=== PATIENT | female | born 1960 | race African-American/Black ===

== ENCOUNTER 2017-06-06 07:05 | Emergency (ER) | payer OTHER ==
[2017-06-06 07:15] VITALS: TEMP 98; BMI 34.7
--- NOTE | 2017-06-06 07:46 | PDOC ---
History of Present Illness - General Chief Complaint: Pain, Acute Stated Complaint: ABDOMINAL PAIN Time Seen by Provider: 06/06/17 07:44 History Source: Patient Exam Limitations: No Limitations - History of Present Illness Initial Comments: CHIEF COMPLAINT: 56 y/o afebrile female with PMH DM, CAD (prior CABG), HTN, HLD , CKD (HD //) c/o right side and back pain for the past 6 hours. HISTORY OF PRESENT ILLNESS: The patient states she developed right side and back pain that woke her up from sleep about 6 hours ago. She states the pain is constant. She also admits to nausea with 1 episode of vomiting. She denies f/c, BERGER, dizziness, CP, SOB, hematuria, dysuria. The patient does make some of her own urine and was scheduled for dialysis today but was refused because of her symptoms. She has not taken anything for pain. PCP is Dr. Glass Life Specialist is Dr. Rogers Safety Physician is Dr. Sheppard Vital signs on arrival are notable for BP 176/79. REVIEW OF SYSTEMS: GENERAL/CONSTITUTIONAL: No fever/chills. No weakness. No weight change. HEAD, EYES, EARS, NOSE AND THROAT: No change in vision. No ear pain or discharge. No sore throat. CARDIOVASCULAR: No chest pain or shortness of breath. RESPIRATORY: No cough, wheezing, or hemoptysis. GASTROINTESTINAL: +nausea, vomiting. No diarrhea or constipation. GENITOURINARY: No dysuria, frequency, or change in urination. MUSCULOSKELETAL: +right side pain and right back pain. No joint or muscle swelling or pain. No neck pain. SKIN: No rash or easy bruising. NEUROLOGIC: No headache, vertigo, loss of consciousness, or loss of sensation. PHYSICAL EXAM: GENERAL: The patient is awake, alert, and fully oriented, in moderate discomfort. HEAD: Normal with no signs of trauma. ENT: Mucous membranes moist. Pupils equal, round and reactive to light, extraocular movements intact, sclera anicteric, conjunctiva clear. Neck supple. LUNGS: Clear to auscultation bilaterally. Normal excursion. No respiratory distress or use of accessory muscles. CV: RRR, S1/S2, no MRG. Cap refill < 2 sec. ABDOMEN: Soft, obese, with TTP of middle right abdomen and right flank. Negative Harris's sign. No RLQ TTP. No rebound, guarding or rigidity. BACK: +right CVA TTP. EXTREMITIES: Normal range of motion, no edema. NEUROLOGICAL: Normal speech, normal gait. CN II-XII grossly intact. PSYCH: Normal mood, normal affect. SKIN: Warm, dry, normal turgor, no rashes or lesions noted. Past History - Past Medical History Allergies/Adverse Reactions: Allergies Allergy/AdvReac Type Severity Reaction Status Date / Time theophylline Allergy Severe THROAT Verified 06/06/17 07:12 SWELLING BEE'S Allergy THROAT Uncoded 06/06/17 07:12 SWELLING TROPICAL FRUITS Allergy THROAT Uncoded 06/06/17 07:12 SWELLING Home Medications: Ambulatory Orders Insulin Lispro [Humalog] 80 unit SQ DAILY 11/29/14 Sevelamer Carbonate [Renvela -] 800 mg PO TID 11/29/14 Amlodipine Besylate [Norvasc -] 10 mg PO DAILY tablet 12/03/14 Hydralazine HCl [Apresoline -] 50 mg PO TID tablet 12/03/14 Aspirin [ASA -] 1 tab PO DAILY 02/20/15 Omeprazole [Prilosec] 40 mg PO DAILY #0 capsule.dr 07/23/15 Polyethylene Glycol 3350 [Miralax (For Bowel Prep) -] 17 gm PO DAILY #1 bottle 07/23/15 Anemia: No Asthma: Yes Cancer: No Cardiac Disorders: Yes ("VALVE REPAIRED AND NARROW ARTERIES") CVA: No COPD: No CHF: Yes (2010) Dementia: No Diabetes: Yes Dialysis: Yes (,th,sat lt arm fistula) GI Disorders: No Disorders: No HTN: Yes Hypercholesterolemia: Yes Liver Disease: No Seizures: No Thyroid Disease: No - Surgical History Abdominal Surgery: Yes (tubal ligation) Appendectomy: No Cardiac Surgery: Yes (CABG 3 VESSELS 2010) Cholecystectomy: No Lung Surgery: No Neurologic Surgery: No Orthopedic Surgery: Yes (L KNEE ARTHROSCOPY) - Family Disease History Family Disease History: Diabetes: Mother, Heart Disease: Father - Suicide/Smoking/Psychosocial Hx Smoking History: Never smoked Have you smoked in the past 12 months: No If you are a former smoker, when did you quit?: 1995 Information on smoking cessation initiated: No Hx Alcohol Use: Yes (RARELY) Drug/Substance Use Hx: No Substance Use Type: None Hx Substance Use Treatment: No *Physical Exam - Vital Signs Last Vital Signs Temp Pulse Resp BP Pulse Ox 98.0 F 60 18 176/79 98 06/06/17 07:12 06/06/17 07:12 06/06/17 07:12 06/06/17 07:12 06/06/17 07:12 Heart Score/ECG Review - History History: Slightly suspicious - Electrocardiogram EKG: Non specific repolarization disturbance - Age Age: 45-65 - Risk Factors Risk Factors Heart Score: Yes Hx Hypercholesterolemia, Yes Hx Hypertension, Yes Hx Diabetes, Yes Hx Obesity Based on the list above the patient has:: >/=3 risk factors or Hx atherosclerotic disease - Troponin Troponin: </= normal limit - Score Heart Score - Total: 4 - ECG Intrepretation Comment:: Twelve-lead EKG was performed and reviewed by Dr. De Leon. There is sinus bradycardia. Cannot rule out anterior infarct, age undetermined. ST & T wave abnormality, consider lateral ischemia. Impression: Abnormal EKG ED Treatment Course - LABORATORY CBC & Chemistry Diagram: 06/06/17 08:51 06/06/17 09:15 Medical Decision Making - Medical Decision Making A/P: 56 y/o afebrile female with signs and symptoms of renal colic vs kidney stone. Plan is as follows: 1. EKG 2. Labs 3. UA/culture 4. IV morphine 5. IV zofran 6. Spiral CT Spiral CT IMPRESSION: Minimal atelectatic changes in the left lung base without gross evidence of focal infiltrates. Minimal right pleural effusion. Partially exophytic right renal lower pole cyst measuring 5 x 4 cm. Some moderate stranding of the right perinephric fat and minimal prominence of the right renal pelvis without gross dilatation of the right ureter or definite evidence of an obstructing stone. Partially distended urinary bladder without gross intraluminal stones or wall thickening. Patient states pain has improved but still present. Spoke with Dr. Glass and he suggests that if everything is normal she should be discharged. Will call Dr. Rogers and Dr. Sheppard. Spoke with Dr. Mullins, combination machine tender for Dr. Sheppard. He states her prior EKG 1 week ago was similar to the one taken today in the ER. He suggests a 2nd tropnin and discharge to dialysis. Still waiting for call back from her supervisor graphite. Pt states she feels much better. Spoke with Dr. Rogers. He suggests discharge and states if she gets to dialysis center by 3pm she will be dialized. Will discharge to home. Instructed the patient to return to the ER with any worsening or concerning symptoms. The patient verbalizes understanding of all instructions, has no further questions and is awaiting discharge. *DC/Admit/Observation/Transfer Diagnosis at time of Disposition: Renal colic on right side - Discharge Dispostion Disposition: HOME Condition at time of disposition: Improved - Referrals Referrals: Prema Glass MD [Primary Care Provider] - Jono Sheppard MD [Staff Physician] - - Patient Instructions Printed Discharge Instructions: Kidney Stones -- Adult Additional Instructions: Discharge INstructions: -Return to the ER with any worsening or concerning symptoms -Please follow up with Dr. Glass, Dr. Sheppard and Dr. Rogers as soon as possible. - Post Discharge Activity
[2017-06-06] MEDS ORDERED: morphine CARPU-JECT 4 MG/1 ML DISP.SYRIN IVPUSH ONE (08:04)
[2017-06-06] MEDS ORDERED: ONDANSETRON 4 MG/2 ML VIAL IVPUSH ONE (08:05)
[2017-06-06] MEDS ORDERED: morphine CARPU-JECT 10 MG/1 ML DISP.SYRIN ONE (08:56)
[2017-06-06 09:26] LABS: BASO % 1.2 % (0-2.0); EOS % 1.7 % (0-4.5); HEMATOCRIT 35.9 % (32.4-45.2); HEMOGLOBIN 11.7 GM/dL (10.7-15.3); LYMPH % 14.8 % (8-40); MCH 32.2 pg (25.7-33.7); MCHC 32.4 g/dl (32.0-36.0); MEAN CELL VOLUME 99.2 fl (80-96); MEAN PLT VOLUME 9.4 fl (7.5-11.1); MONO % 5.4 % (3.8-10.2); NEUT % 76.9 % (42.8-82.8); PLATELET COUNT 207 K/MM3 (134-434); RBC 3.62 M/mm3 (3.60-5.2); WHITE BLOOD COUNT 5.5 K/mm3 (4.0-10.0)
[2017-06-06 11:34] LABS: ALBUMIN 3.6 g/dl (3.4-5.0); ANION GAP 15 (8-16); BILIRUBIN,TOTAL 0.5 mg/dL (0.2-1.0); BLOOD UREA NITROGEN 83 mg/dL (7-18); CALCIUM 8.8 mg/dL (8.5-10.1); CHLORIDE 97 mmol/L (98-107); CO2 23 mmol/L (21-32); GLUCOSE,RANDOM 171 mg/dL (74-106); POTASSIUM 5.1 mmol/L (3.5-5.1); SGOT/AST 12 U/L (15-37); SGPT/ALT 15 U/L (12-78); SODIUM 135 mmol/L (136-145); TOT PROT 6.9 g/dl (6.4-8.2)
[2017-06-06 11:43] LABS: ALK PHOS 67 U/L (45-117)
[2017-06-06 11:46] LABS: CREATININE 9.2 mg/dL (0.55-1.02)
[2017-06-06 14:24] LABS: URINE APPEARANCE CLEAR; URINE BILIRUBIN NEGATIVE (NEGATIVE); URINE BLOOD 3+ (NEGATIVE); URINE COLOR LTYELLOW; URINE GLUCOSE (UA) 1+ (NEGATIVE); URINE KETONE NEGATIVE (NEGATIVE); URINE LEUK ESTERASE TRACE (NEGATIVE); URINE NITRITE NEGATIVE (NEGATIVE); URINE UROBILINOGEN NEGATIVE mg/dL (0.2-1.0)
[2017-06-06 14:32] VITALS: BP 122/68; PULSE 66
[2017-06-06 14:50] LABS: URINE PROTEIN 2+ (NEGATIVE)
[2017-06-06 15:42] LABS: EPI CELLS RARE /HPF (FEW); URINE BACTERIA RARE /hpf (NONE SEEN)
--- NOTE | 2017-06-07 09:33 | EKG ---
Test Reason : Blood Pressure : / mmHG Vent. Rate : 050 BPM Atrial Rate : 050 BPM P-R Int : 178 ms QRS Dur : 092 ms QT Int : 486 ms P-R-T Axes : 058 -19 025 degrees QTc Int : 443 ms SINUS BRADYCARDIA NONSPECIFIC T WAVE ABNORMALITY ABNORMAL ECG Confirmed by MD Luz Maria, Sushil ([id number]) on 06/07/2017 9:33:09 AM Referred By: Confirmed By:Sushil Loera MD
== END 2017-06-06 14:32 | disposition home or self-care (01) ==
LOC: JER 07:05
PROC: 3E033GC Introduction of Other Therapeutic Substance into Peripheral Vein, Percutaneous Approach (ICD-10-PCS; principal; 2017-06-06)
PROC: 3E033NZ Introduction of Analgesics, Hypnotics, Sedatives into Peripheral Vein, Percutaneous Approach (ICD-10-PCS; 2017-06-06)
DX: N23 Unspecified renal colic (principal); I25.10 Atherosclerotic heart disease of native coronary artery without angina pectoris; I13.11 Hypertensive heart and chronic kidney disease without heart failure, with stage 5 chronic kidney disease, or end stage renal disease; N18.6 End stage renal disease; Z99.2 Dependence on renal dialysis; Z95.1 Presence of aortocoronary bypass graft; E10.9 Type 1 diabetes mellitus without complications; Z79.4 Long term (current) use of insulin
CPT/HCPCS: 36415; 74176; 80053; 81003; 81015; 82550; 82553; 83690; 84439; 84443; 84481; 84484; 85025; 93005; 93010; 96374; 96375; 99284-25

== ENCOUNTER 2017-09-12 06:15 | Inpatient (IN) | payer OTHER ==
[2017-09-12 06:55] VITALS: BMI 34.4
[2017-09-12] MEDS ORDERED: ONDANSETRON 4 MG/2 ML VIAL IVPUSH ONE (07:47)
[2017-09-12] MEDS ORDERED: morphine CARPU-JECT 4 MG/1 ML DISP.SYRIN IVPUSH ONE ×2 (07:47→12:05)
[2017-09-12] MEDS ORDERED: morphine SULFATE 4 MG/ML VIAL ONE ×2 (08:23→12:06)
[2017-09-12] MEDS ORDERED: ONDANSETRON 4 MG/2 ML VIAL ONE (08:23)
--- NOTE | 2017-09-12 08:32 | PDOC ---
History of Present Illness - General History Source: Patient Exam Limitations: No Limitations - History of Present Illness Initial Comments: 09/12/17 08:41 The patient is a 56-year-old female, with a significant past medical history of asthma, CAD, CHF, diabetes, HTN, hyperlipidemia, and end stage renal disease ( dialysis on ., ., Sat.), who presents to the ED with right-sided flank pain that began at 2 AM. She describes the pain as 10/10 in severity with radiation to the right upper quadrant and to the groin. She reports having a history of kidney stones, but the pain she is experiencing now is much more severe. She also endorses pleuritic chest pain on inspiration; denies having a chest pain at rest. An hour prior to presentation, the patient experienced an episode of nausea and vomiting; no blood seen in the emesis. The patient is able to make urine. The patient denies any fever, chills, diarrhea, constipation, or abdominal pain. Denies any urinary symptoms. Denies any shortness of breath or chest pain. Allergies: theophylline, bees, tropical fruits Surgical History: CABG PCP: Dr. Glass <Magy Acosta - Last Filed: 09/12/17 11:39> <Nakul De Leon - Last Filed: 09/12/17 12:35> - General Chief Complaint: Pain Stated Complaint: ABD/BACK PAIN Time Seen by Provider: 09/12/17 07:20 Past History <Magy Acosta - Last Filed: 09/12/17 11:39> - Past Medical History Anemia: No Asthma: Yes Cancer: No Cardiac Disorders: Yes ("VALVE REPAIRED AND NARROW ARTERIES") CVA: No COPD: No CHF: Yes (2010) Dementia: No Diabetes: Yes Dialysis: Yes (,,sat lt arm fistula) GI Disorders: No Disorders: No HTN: Yes Hypercholesterolemia: Yes Liver Disease: No Seizures: No Thyroid Disease: No - Surgical History Abdominal Surgery: Yes (tubal ligation) Appendectomy: No Cardiac Surgery: Yes (CABG 3 VESSELS 2010) Cholecystectomy: No Lung Surgery: No Neurologic Surgery: No Orthopedic Surgery: Yes (L KNEE ARTHROSCOPY) - Family Disease History Family Disease History: Diabetes: Mother, Heart Disease: Father - Suicide/Smoking/Psychosocial Hx Smoking History: Never smoked Have you smoked in the past 12 months: No If you are a former smoker, when did you quit?: 1995 Information on smoking cessation initiated: No Hx Alcohol Use: No Drug/Substance Use Hx: No Substance Use Type: None Hx Substance Use Treatment: No <Nakul De Leon - Last Filed: 09/12/17 12:35> - Past Medical History Allergies/Adverse Reactions: Allergies Allergy/AdvReac Type Severity Reaction Status Date / Time theophylline Allergy Severe THROAT Verified 09/12/17 06:55 SWELLING BEE'S Allergy THROAT Uncoded 09/12/17 06:55 SWELLING TROPICAL FRUITS Allergy THROAT Uncoded 09/12/17 06:55 SWELLING Home Medications: Ambulatory Orders Sevelamer Carbonate [Renvela -] 800 mg PO TID 11/29/14 Amlodipine Besylate [Norvasc -] 10 mg PO DAILY tablet 12/03/14 Aspirin [Aspirin EC] 81 mg PO DAILY 09/12/17 Furosemide [Lasix] 80 mg PO BID 09/12/17 Labetalol HCl [Normodyne -] 300 mg PO BID 09/12/17 hydrALAZINE HCL [Apresoline -] 50 mg PO BID 09/12/17 Review of Systems - Review of Systems Able to Perform ROS?: Yes <Magy Acosta - Last Filed: 09/12/17 11:39> - Review of Systems Constitutional: No: Chills, Fever Respiratory: No: Cough, Shortness of Breath Cardiac (ROS): No: Edema ABD/GI: Yes: Nausea. No: Vomiting : Yes: Flank Pain. No: Dysuria, Frequency All Other Systems: Reviewed and Negative <Nakul De Leon - Last Filed: 09/12/17 12:35> *Physical Exam - Vital Signs Last Vital Signs Temp Pulse Resp BP Pulse Ox 97.4 F L 63 18 155/79 98 09/12/17 06:52 09/12/17 06:52 09/12/17 06:52 09/12/17 06:52 09/12/17 06:52 - Physical Exam Comments: 09/12/17 08:42 GENERAL: The patient is awake, alert, and fully oriented, in no acute distress. HEAD: Normal with no signs of trauma. EYES: Pupils equal, round and reactive to light, extraocular movements intact, sclera anicteric, conjunctiva clear with no pallor. ENT: Ears normal, nares patent, oropharynx clear without exudates. Moist mucous membranes. NECK: Normal range of motion, supple without lymphadenopathy, JVD, or masses. LUNGS: Breath sounds equal, clear to auscultation bilaterally. No wheeze/ crackles. HEART: Regular rate and rhythm, normal S1 and S2 without murmur or rub. ABDOMEN: (+)Right-sided abdominal tenderness to palpation, Right upper quadrant tenderness to palpation. Soft/nondistended. BS wnl. No guarding or rebound. No palpable masses. No hepatosplenomegaly. MUSCULOSKELETAL: (+)Right CVA tenderness to palpation. EXTREMITIES: (+)Left arm fistula with palpable thrill. Normal range of motion, no edema. No clubbing or cyanosis. No cords, erythema, or tenderness. NEUROLOGICAL: Cranial nerves II through XII grossly intact. Normal speech, normal gait. PSYCH: Normal mood, normal affect. SKIN: Warm, Dry, normal turgor, no rashes or lesions noted. <Magy Acosta - Last Filed: 09/12/17 11:39> - Vital Signs Last Vital Signs Temp Pulse Resp BP Pulse Ox 97.4 F L 63 18 155/79 98 09/12/17 06:52 09/12/17 06:52 09/12/17 06:52 09/12/17 06:52 09/12/17 06:52 <Nakul De Leon - Last Filed: 09/12/17 12:35> ED Treatment Course - LABORATORY CBC & Chemistry Diagram: 09/12/17 08:15 09/12/17 08:15 - RADIOLOGY Radiology Studies Ordered: 09/12/17 11:37 Chest X-Ray was reviewed by Dr. De Leon and over-read by Radiology. Impression: No acute pathology. No significant change since 02/20/2015. 09/12/17 11:39 Abdomen/Pelvis CT was reviewed by Dr. De Leon and over-read by Radiology. Impression: The lung bases are clear. There is a mild degree of right-sided hydronephrosis with dilatation of the proximal right ureter. The distal ureter is not dilated. The etiology for this mild hydronephrosis is uncertain and a follow-up contrast-enhanced study or retrograde urographic study may be warranted. Since a prior study of 06/06/2017, the mild right-sided hydronephrosis has developed. There is a 4.8 cm lower pole right renal cyst. There is no evidence of calcifications within the kidneys, ureters or urinary bladder suspicious for urinary tract calculi. There is no evidence of left-sided hydronephrosis or obstructive uropathy. No significant abnormalities of the liver, spleen, pancreas, or adrenal glands are identified. There are a few hepatic calcifications suspicious for prior granulomatous disease. The gallbladder is clear. There is a ventral hernia within the upper midline. A small portion of the left lobe of the liver is contained within the hernia sac. A tiny ventral hernia seen just above the umbilicus. This contains a soft tissue nodule measuring 2.4 cm. A fat-containing umbilical hernia is also present. There is no evidence of intra-abdominal, retroperitoneal or pelvic mass lesions , fluid collections or lymphadenopathy. IMPRESSION: 1. Mild right-sided hydronephrosis and proximal hydroureter. The etiology for this finding is uncertain. Clinical correlation and follow-up recommended. 2. Multiple ventral hernias. Please see above discussion. - Medications Given in the ED: ED Medications Discontinued Medications Generic Name Dose Route Start Last Admin Trade Name Freq PRN Reason Stop Dose Admin Morphine Sulfate 4 mg 09/12/17 07:47 09/12/17 08:32 Morphine Injection - IVPUSH 09/12/17 07:48 4 mg ONCE ONE Administration Ondansetron HCl 4 mg 09/12/17 07:47 09/12/17 08:32 Zofran Injection IVPUSH 09/12/17 07:48 4 mg ONCE ONE Administration <Magy Acosta - Last Filed: 09/12/17 11:39> - LABORATORY CBC & Chemistry Diagram: 09/12/17 08:15 09/12/17 08:15 - RADIOLOGY Radiology Studies Ordered: Category Date Time Status ABDOMEN & PELVIS CT W/O CONTR [CT] Stat CT Scan 09/12/17 07:50 Ordered CHEST X-RAY PORTABLE* [RAD] Stat Radiology 09/12/17 07:54 Ordered <Nakul De Leon - Last Filed: 09/12/17 12:35> Medical Decision Making - Medical Decision Making 09/12/17 08:37 A portion of this note was documented by scribe services under my direction. I have reviewed the details of the note, within reason, and agree with the documentation with the following case summary and management plan written by me. 56-year-old female end-stage renal disease on Monday//Monday dialysis , produces some urine and has history of kidney stones presents with acute onset of right flank pain that awoke her from sleep at 2 AM, 10 out of 10 since onset associated with some nausea. Patient had 1 episode of loose nonbloody stool yesterday, had otherwise normal urination yesterday. Has not had urine output during this pain. States pain is similar to past kidney stone but more severe, no falls, some pleuritic discomfort but no actual chest pain or cough or shortness of breath. No fevers or chills. Vital signs as noted and within normal limits Heart is regular bradycardia, lungs are clear Right flank tenderness to palpation radiates down to the right lateral abdomen, slight right upper quadrant discomfort. Abdomen is otherwise soft and nondistended No edema 56-year-old female with acute onset of right flank pain this morning with some nausea. Presentation seems most consistent with intra-abdominal pathology, question renal colic versus biliary colic. Given the pleuritic discomfort and flank pain, PE is on the differential but low given the focal abdominal exam. Rule out UTI/pyelonephritis. Missed dialysis today. Pain control, nausea control Labs, urinalysis ekg, cxr CT of the abdomen and pelvis Reassess 09/12/17 11:29 labs wnl, baseline Cr, no leukocytosis, trop negative. UA and CTAP pending 09/12/17 11:43 CT shows proximal right hydroureter nephrosis without obstructing stone, no clear etiology. Question stricture versus stone not visible on imaging, patient still in significant discomfort requiring more IV opiates. Will discuss disposition with Dr. Glass, her primary physician. 09/12/17 12:33 seen in ED with Dr. Glass, accepts patient for inpt med/surg. She discussed case with Dr. Rogers/Gorge and will arrange HD today. Pt's daughter confirmed [email or web address] as her , so he was consulted also. <Nakul De Leon - Last Filed: 09/12/17 12:35> *DC/Admit/Observation/Transfer - Attestations Scribe Attestion: 09/12/17 08:50 Documentation prepared by Magy Acosta, acting as medical reception for Nakul De Leon MD. <Magy Acosta - Last Filed: 09/12/17 11:39> - Discharge Dispostion Admit: Yes <Nakul De Leon - Last Filed: 09/12/17 12:35> Diagnosis at time of Disposition: ESRD (end stage renal disease), Right flank pain, Hydroureteronephrosis - Discharge Dispostion Condition at time of disposition: Fair - Referrals Referrals: Prema Glass MD [Primary Care Provider] - - Patient Instructions - Post Discharge Activity
[2017-09-12 08:38] LABS: EOS % 2.9 % (0-4.5); HEMATOCRIT 37.4 % (32.4-45.2); HEMOGLOBIN 12.7 GM/dL (10.7-15.3); LYMPH % 15.9 % (8-40); MCH 34.2 pg (25.7-33.7); MCHC 33.9 g/dl (32.0-36.0); MEAN CELL VOLUME 100.9 fl (80-96); MEAN PLT VOLUME 9.6 fl (7.5-11.1); MONO % 5.5 % (3.8-10.2); NEUT % 74.7 % (42.8-82.8); PLATELET COUNT 210 K/MM3 (134-434); RDW 14.7 % (11.6-15.6); WHITE BLOOD COUNT 5.4 K/mm3 (4.0-10.0)
[2017-09-12 09:08] LABS: INR 0.9 (0.82-1.09); PROTHROMBIN TIME (PATIENT) 10.2 SEC (9.98-11.88)
[2017-09-12 10:02] LABS: ALBUMIN 3.8 g/dl (3.4-5.0); ALK PHOS 74 U/L (45-117); ANION GAP 16 (8-16); BILIRUBIN,TOTAL 0.4 mg/dL (0.2-1.0); BLOOD UREA NITROGEN 84 mg/dL (7-18); CALCIUM 9.1 mg/dL (8.5-10.1); CHLORIDE 97 mmol/L (98-107); CO2 22 mmol/L (21-32); GLUCOSE,RANDOM 219 mg/dL (74-106); LIPASE 180 U/L (73-393); POTASSIUM 5.1 mmol/L (3.5-5.1); SGOT/AST 15 U/L (15-37); SGPT/ALT 15 U/L (12-78); SODIUM 135 mmol/L (136-145); TOT PROT 7.2 g/dl (6.4-8.2)
[2017-09-12 11:10] LABS: CREATININE 9.8 mg/dL (0.55-1.02)
[2017-09-12] MEDS ORDERED: HYDROmorphone HCL CARPU-JECT 1 MG/1 ML DISP.SYRIN IVPUSH ONE (11:30)
[2017-09-12] MEDS ORDERED: morphine CARPU-JECT 2 MG/1 ML DISP.SYRIN IVPUSH ONE (12:14)
--- NOTE | 2017-09-12 13:34 | EKG ---
Test Reason : Blood Pressure : / mmHG Vent. Rate : 051 BPM Atrial Rate : 051 BPM P-R Int : 182 ms QRS Dur : 096 ms QT Int : 480 ms P-R-T Axes : 068 -21 030 degrees QTc Int : 442 ms SINUS BRADYCARDIA POSSIBLE ANTERIOR INFARCT (CITED ON OR BEFORE 12-SEP-2017) ABNORMAL ECG WHEN COMPARED WITH ECG OF 06-JUN-2017 11:23, T WAVE INVERSION NO LONGER EVIDENT IN LATERAL LEADS Confirmed by MD Ariel, Sathish ([id number]) on 09/12/2017 1:34:16 PM Referred By: Confirmed By:Sathish George MD
--- NOTE | 2017-09-12 13:45 | CON.GU ---
Consult Consult Specialty:: Urology Referred by:: Dr Glass - History of Present Illness Chief Complaint: Right flank pain History of Present Illness: 56 yo male w right flank pain severe assoc c nausea - Past Medical History Cardio/Vascular: Yes: CAD, CHF, HTN, Hyperlipdemia Pulmonary: Yes: Asthma Renal/: Yes: Renal Failure - Past Surgical History Past Surgical History: Yes: CABG - Alcohol/Substance Use Hx Alcohol Use: No - Smoking History Smoking history: Never smoked Have you smoked in the past 12 months: No If you are a former smoker, when did you quit?: 1995 - Social History ADL: Independent History of Recent Travel: No Home Medications - Allergies Allergies/Adverse Reactions: Allergies Allergy/AdvReac Type Severity Reaction Status Date / Time theophylline Allergy Severe THROAT Verified 09/12/17 06:55 SWELLING BEE'S Allergy THROAT Uncoded 09/12/17 06:55 SWELLING TROPICAL FRUITS Allergy THROAT Uncoded 09/12/17 06:55 SWELLING - Home Medications Home Medications: Ambulatory Orders Sevelamer Carbonate [Renvela -] 800 mg PO TID 11/29/14 Amlodipine Besylate [Norvasc -] 10 mg PO DAILY tablet 12/03/14 Aspirin [Aspirin EC] 81 mg PO DAILY 09/12/17 Furosemide [Lasix] 80 mg PO BID 09/12/17 Labetalol HCl [Normodyne -] 300 mg PO BID 09/12/17 hydrALAZINE HCL [Apresoline -] 50 mg PO BID 09/12/17 Physical Exam- Vital Signs: Vital Signs Temperature 98.2 F 09/12/17 12:31 Pulse Rate 50 L 09/12/17 12:31 Respiratory Rate 18 09/12/17 12:31 Blood Pressure 147/66 09/12/17 12:31 O2 Sat by Pulse Oximetry (%) 95 09/12/17 12:31 Labs: CBC, BMP 09/12/17 08:15 09/12/17 08:15 Imaging - Results Cat Scan: Report Reviewed Problem List - Problems (1) Hydroureteronephrosis Assessment/Plan: Right flank pain No etiology or stone seen on CT scan Possibly passed stone If pain persists would need renal scan w lasix w delayed imaging do to renal failure Tx pain prn analgesics Code(s): N13.30 - UNSPECIFIED HYDRONEPHROSIS
--- NOTE | 2017-09-12 15:59 | CONSULT ---
Consult Consult Specialty:: Nephrology Reason for Consultation:: ESRD - History of Present Illness Chief Complaint: right flank pain History of Present Illness: Pt is a 56 year old female with pmhx of asthma, CAD, CHF, DM, HTN, HLD and ESRD who presents to the ER with right sided flank pain. She says that the pain radiated to her groin. She went for ct and was found to have right sided hydro. She was evaluated by urology who thinks she may have passed a stone. She s on HD and was last dialyzed on Monday. She denies shortness of breath. - History Source History Provided By: Patient, Medical Record - Past Medical History Cardio/Vascular: Yes: CAD, CHF, HTN, Hyperlipdemia Pulmonary: Yes: Asthma Renal/: Yes: Renal Failure, Hemodialysis - Past Surgical History Past Surgical History: Yes: AV Fistula/Graft, CABG - Alcohol/Substance Use Hx Alcohol Use: No - Smoking History Smoking history: Never smoked Have you smoked in the past 12 months: No If you are a former smoker, when did you quit?: 1995 - Social History ADL: Independent History of Recent Travel: No Home Medications - Allergies Allergies/Adverse Reactions: Allergies Allergy/AdvReac Type Severity Reaction Status Date / Time theophylline Allergy Severe THROAT Verified 09/12/17 06:55 SWELLING BEE'S Allergy THROAT Uncoded 09/12/17 06:55 SWELLING TROPICAL FRUITS Allergy THROAT Uncoded 09/12/17 06:55 SWELLING - Home Medications Home Medications: Ambulatory Orders Sevelamer Carbonate [Renvela -] 800 mg PO TID 11/29/14 Amlodipine Besylate [Norvasc -] 10 mg PO DAILY tablet 12/03/14 Aspirin [Aspirin EC] 81 mg PO DAILY 09/12/17 Furosemide [Lasix] 80 mg PO BID 09/12/17 Labetalol HCl [Normodyne -] 300 mg PO BID 09/12/17 hydrALAZINE HCL [Apresoline -] 50 mg PO BID 09/12/17 Family Disease History - Family Disease History Family History: Denies Review of Systems - Review of Systems Constitutional: reports: Malaise. denies: Chills, Fever Eyes: reports: No Symptoms HENT: reports: No Symptoms Neck: reports: No Symptoms Cardiovascular: reports: No Symptoms Respiratory: reports: No Symptoms Gastrointestinal: reports: No Symptoms Genitourinary: reports: Flank Pain Musculoskeletal: reports: No Symptoms Integumentary: reports: No Symptoms Neurological: reports: No Symptoms Endocrine: reports: No Symptoms Hematology/Lymphatic: reports: No Symptoms Physical Exam Vital Signs: Vital Signs Temperature 98.0 F 09/12/17 14:17 Pulse Rate 56 L 09/12/17 14:17 Respiratory Rate 16 09/12/17 14:17 Blood Pressure 144/74 09/12/17 14:17 O2 Sat by Pulse Oximetry (%) 95 09/12/17 14:17 Constitutional: Yes: Calm Eyes: Yes: Conjunctiva Clear Cardiovascular: Yes: S1, S2 Respiratory: Yes: CTA Bilaterally Gastrointestinal: Yes: Soft Renal/: Yes: CVA Tenderness - Right Musculoskeletal: Yes: WNL Edema: No Neurological: Yes: Oriented Psychiatric: Yes: Oriented Labs: CBC, BMP 09/12/17 08:15 09/12/17 08:15 Laboratory Tests 11/30/14 09/12/17 09/12/17 06:20 08:15 08:15 WBC 5.4 Hgb 12.7 Plt Count 210 Sodium 131 L 135 L Potassium 3.1 L 5.1 Chloride 97 L Carbon Dioxide 22 Anion Gap 16 BUN 103 H 84 H Creatinine 7.5 H* 9.8 H* Imaging - Results Chest X-ray: Report Reviewed Cat Scan: Report Reviewed Problem List - Problems (1) ESRD (end stage renal disease) Code(s): N18.6 - END STAGE RENAL DISEASE (2) Hydroureteronephrosis Code(s): N13.30 - UNSPECIFIED HYDRONEPHROSIS (3) Right flank pain Code(s): R10.9 - UNSPECIFIED ABDOMINAL PAIN (4) Diabetes mellitus, insulin dependent (IDDM), uncontrolled Code(s): E10.65 - TYPE 1 DIABETES MELLITUS WITH HYPERGLYCEMIA (5) HTN (hypertension) Code(s): I10 - ESSENTIAL (PRIMARY) HYPERTENSION Assessment/Plan Impression 1. ESRD 2. DM 3. HTN 4. hydronephrosis 5. CHF 6. asthma Plan - urology input appreciated - will arrange for HD today - resume home meds - unclear of she passed a stone - monitor blood sugar - HD: 4 hrs, opti 180, bfr 500, dw 111 kg, 2 k bath, heparin 3000 bolus,
[2017-09-12 17:47] LABS: URINE APPEARANCE CLOUDY; URINE BILIRUBIN NEGATIVE (<2.0 mg/dL); URINE BLOOD 3+ (NEGATIVE); URINE COLOR YELLOW; URINE GLUCOSE (UA) 2+ (NEGATIVE); URINE KETONE NEGATIVE (NEGATIVE); URINE LEUK ESTERASE TRACE (NEGATIVE); URINE NITRITE NEGATIVE (NEGATIVE); URINE UROBILINOGEN NEGATIVE mg/dL (0.2-1.0)
[2017-09-12 17:48] LABS: URINE PROTEIN 2+ (NEGATIVE)
[2017-09-12] MEDS: ACETAMINOPHEN 325 MG TABLET (FP) PO PRN (18:02)
[2017-09-12] MEDS: SEVELAMER CARBONATE 800 MG TAB (FP) PO SCH (18:02)
[2017-09-12 18:12] LABS: EPI CELLS FEW /HPF (FEW); URINE MUCUS RARE
[2017-09-12] MEDS ORDERED: SODIUM CHLORIDE 250 ML IV PRN (20:26)
[2017-09-12] MEDS ORDERED: HEPARIN NA (PORCINE) 5,000 UNITS/ML 1ML VIAL IVPUSH ONE (20:30)
[2017-09-12] MEDS ORDERED: INSULIN (NOVOLOG) ASPART 100 UNITS/ML 10ML VIAL ONE (21:14)
[2017-09-12] MEDS ORDERED: FUROSEMIDE 40 MG TABLET (FP) PO SCH (22:00)
--- NOTE | 2017-09-12 22:46 | HP ---
Admitting History and Physical - Admission History of Present Illness: The patient is a 56-year-old female, with a significant past medical history of asthma, CAD s/p CABG, CHF, diabetes ( insulin pump), HTN, hyperlipidemia, and CKD5 on HD ( HD on ., ., Sat.), who presents to the ED with right- sided flank pain that began about a week ago "on and off" then got worse last night and severe since about 2 am, which brought her to ER. She describes the pain as 10/10 in severity with radiation from the right upper quadrant / flank to the groin. She reports having a history of kidney stones, but the pain she is experiencing now is much more severe. She also endorses pleuritic chest pain on inspiration; denies having a chest pain at rest. An hour prior to presentation, the patient experienced an episode of nausea and vomiting; no blood seen in the emesis. The patient is able to make urine. She reports episodes of hematuria prior to arrival at ER The patient denies any fever, chills, diarrhea, constipation, or abdominal pain. Denies any urinary symptoms. Denies any shortness of breath or chest pain. History Source: Patient, Medical Record Limitations to Obtaining History: Clinical Condition (patient is severe pain inspite of having recieved Morphine --States has not helped her " she doesn't want any more morphine") - Past Medical History Cardiovascular: Yes: CAD, CHF, HTN, Hyperlipdemia Pulmonary: Yes: Asthma Renal/: Yes: Renal Failure, Hemodialysis, Renal Calculi (per patient) Reproductive: Yes: Postmenopausal ...: No - Past Surgical History Past Surgical History: Yes: AV Fistula/Graft, CABG - Smoking History Smoking history: Never smoked Have you smoked in the past 12 months: No If you are a former smoker, when did you quit?: 1995 - Alcohol/Substance Use Hx Alcohol Use: No - Social History ADL: Independent History of Recent Travel: No Home Medications - Allergies Allergies/Adverse Reactions: Allergies Allergy/AdvReac Type Severity Reaction Status Date / Time theophylline Allergy Severe THROAT Verified 09/12/17 06:55 SWELLING BEE'S Allergy THROAT Uncoded 09/12/17 06:55 SWELLING TROPICAL FRUITS Allergy THROAT Uncoded 09/12/17 06:55 SWELLING - Home Medications Home Medications: Ambulatory Orders Sevelamer Carbonate [Renvela -] 800 mg PO TID 11/29/14 Amlodipine Besylate [Norvasc -] 10 mg PO DAILY tablet 12/03/14 Aspirin [Aspirin EC] 81 mg PO DAILY 09/12/17 Furosemide [Lasix] 80 mg PO BID 09/12/17 Labetalol HCl [Normodyne -] 300 mg PO BID 09/12/17 hydrALAZINE HCL [Apresoline -] 50 mg PO BID 09/12/17 Review of Systems - Review of Systems Constitutional: denies: Chills, Fever, Night Sweats, Unintentional Wgt. Loss Eyes: reports: No Symptoms HENT: reports: No Symptoms Neck: reports: No Symptoms Cardiovascular: denies: Chest Pain, Palpitations, Shortness of Breath Respiratory: reports: Other (pleuritic type pain). denies: Cough, Hemoptysis, SOB, SOB on Exertion Gastrointestinal: reports: Nausea. denies: Abdominal Pain, Constipation, Diarrhea, Vomiting Genitourinary: reports: Flank Pain, Hematuria, Pain Breasts: reports: No Symptoms Reported Musculoskeletal: reports: Back Pain Integumentary: reports: No Symptoms Neurological: reports: No Symptoms Endocrine: reports: No Symptoms Hematology/Lymphatic: reports: No Symptoms Psychiatric: reports: No Symptoms Physical Examination Vital Signs: Vital Signs Temperature 97.4 F L 09/12/17 19:45 Pulse Rate 52 L 09/12/17 21:20 Respiratory Rate 18 09/12/17 21:20 Blood Pressure 119/59 09/12/17 21:20 O2 Sat by Pulse Oximetry (%) 99 09/12/17 15:25 Findings/Remarks: Patient seen in the ER, in bed, in position, moaning in pain. poor hx from patient due to clinical condition no respiratory distress / denies chest pain Constitutional: Yes: Well Nourished, Moderate Distress, Obese Eyes: Yes: Conjunctiva Clear, EOM Intact HENT: Yes: Atraumatic, Normocephalic Neck: Yes: Supple, Trachea Midline Cardiovascular: Yes: Regular Rate and Rhythm Respiratory: Yes: CTA Bilaterally, Other (poor inspiratory effort secondary to pain / shallow breathing) Gastrointestinal: Yes: Soft, Abdomen, Obese. No: Distention, Tenderness ...Rectal Exam: Yes: Deferred Renal/: Yes: Other (had not voided since admission to ER / no CVA exam due to obvious pain). No: Bladder Distention, Landeros Present Breast(s): Yes: WNL Musculoskeletal: Yes: WNL Extremities: Yes: WNL Edema: No Peripheral Pulses WNL: Yes Integumentary: Yes: WNL Neurological: Yes: Alert, Oriented Psychiatric: Yes: Alert, Oriented Labs: CBC, BMP 09/12/17 08:15 09/12/17 08:15 Imaging - Results Ultrasound: Pending, Other Problem List - Problems (1) Hydroureteronephrosis Code(s): N13.30 - UNSPECIFIED HYDRONEPHROSIS (2) Right flank pain Code(s): R10.9 - UNSPECIFIED ABDOMINAL PAIN (3) CKD (chronic kidney disease) stage V requiring chronic dialysis Code(s): N18.6 - END STAGE RENAL DISEASE; Z99.2 - DEPENDENCE ON RENAL DIALYSIS (4) ESRD (end stage renal disease) Code(s): N18.6 - END STAGE RENAL DISEASE (5) Diabetes mellitus, insulin dependent (IDDM), uncontrolled Code(s): E10.65 - TYPE 1 DIABETES MELLITUS WITH HYPERGLYCEMIA (6) HTN (hypertension) Code(s): I10 - ESSENTIAL (PRIMARY) HYPERTENSION (7) Obesity Code(s): E66.9 - OBESITY, UNSPECIFIED (8) S/P CABG (coronary artery bypass graft) Code(s): Z95.1 - PRESENCE OF AORTOCORONARY BYPASS GRAFT Assessment/Plan assmt / Plan # Hydronephrosis possible stone / although not seen on U/S may have passed stone pain management / flomax for spasms consult - Has been seen previously by for Stone ( per patient ) # CKD5 on HD T// cycle - HD due today nephrology consult still voids # DM uses insulin pump / known to have episodes of hypoglycemia on HD days will do FS with sliding scale # HTN continue home meds # CAD hx of CABG hx of HF ?? last ECHO LVEF?? # COPD / Asthma home meds
[2017-09-12] MEDS: INSULIN SLIDING SCALE (NOVOLOG) 1 VIAL SQ SCH (23:36)
[2017-09-12] MEDS: hydrALAZINE HCL 50 MG TABLET (FP) PO SCH (23:38)
[2017-09-12] MEDS: LABETALOL HCL 200 MG TABLET (FP) PO SCH (23:38)
[2017-09-13] MEDS: ACETAMINOPHEN 325 MG TABLET (FP) PO PRN (01:16)
[2017-09-13] MEDS: INSULIN SLIDING SCALE (NOVOLOG) 1 VIAL SQ SCH ×2 (06:46→12:34)
[2017-09-13] MEDS ORDERED: INSULIN (NOVOLOG) ASPART 100 UNITS/ML 10ML VIAL ONE ×2 (06:51→12:27)
[2017-09-13 07:41] LABS: BASO % 1.3 % (0-2.0); EOS % 2.2 % (0-4.5); HEMATOCRIT 35.3 % (32.4-45.2); LYMPH % 20.8 % (8-40); MCH 34.3 pg (25.7-33.7); MCHC 33.9 g/dl (32.0-36.0); MEAN CELL VOLUME 101.3 fl (80-96); MEAN PLT VOLUME 9.6 fl (7.5-11.1); MONO % 7.3 % (3.8-10.2); NEUT % 68.4 % (42.8-82.8); PLATELET COUNT 187 K/MM3 (134-434); RBC 3.49 M/mm3 (3.60-5.2); WHITE BLOOD COUNT 5.1 K/mm3 (4.0-10.0)
[2017-09-13 07:47] LABS: ALBUMIN 3.2 g/dl (3.4-5.0); ALK PHOS 69 U/L (45-117); ANION GAP 11 (8-16); BILIRUBIN,TOTAL 0.4 mg/dL (0.2-1.0); BLOOD UREA NITROGEN 41 mg/dL (7-18); CALCIUM 8.5 mg/dL (8.5-10.1); CHLORIDE 101 mmol/L (98-107); CO2 30 mmol/L (21-32); CREATININE 6.4 mg/dL (0.55-1.02); GLUCOSE,RANDOM 169 mg/dL (74-106); POTASSIUM 4.1 mmol/L (3.5-5.1); SGOT/AST 12 U/L (15-37); SGPT/ALT 11 U/L (12-78); SODIUM 142 mmol/L (136-145); TOT PROT 6.1 g/dl (6.4-8.2)
[2017-09-13] MEDS ORDERED: FUROSEMIDE 40 MG TABLET (FP) PO SCH (08:00)
[2017-09-13] MEDS: SEVELAMER CARBONATE 800 MG TAB (FP) PO SCH ×2 (08:21→12:35)
[2017-09-13 09:29] VITALS: BP 114/56; PULSE 72; TEMP 97.9
[2017-09-13] MEDS: hydrALAZINE HCL 50 MG TABLET (FP) PO SCH (09:50)
[2017-09-13] MEDS: LABETALOL HCL 200 MG TABLET (FP) PO SCH (09:51)
[2017-09-13] MEDS ORDERED: ASPIRIN COATED 81 MG TABLET.EC PO SCH (10:00)
[2017-09-13] MEDS ORDERED: amLODIPine BESYLATE 10 MG TABLET (FP) PO SCH (10:00)
--- NOTE | 2017-09-13 13:11 | PN ---
Progress Note (short form) - Note Progress Note: patient sitting up in bed cmfortable states much less pain requesting Tylenol for pain and states " that enough " to control pain Vital Signs Period Temp Pulse Resp BP Sys/Griffith Pulse Ox Last 24 Hr 97.4 F-98.2 F 48-72 16-20 104-145/48-86 95-99 neck suppl e heart s1/S2 lungs clear abd soft / obese Patient uses insulin pump --she schedules on and off depending on HD she will continue to manage Pump CBC, BMP 09/13/17 07:05 09/13/17 07:05 Active Medications Acetaminophen (Tylenol -) 650 mg PO Q4H PRN PRN Reason: PAIN LEVEL 1-5 Last Admin: 09/13/17 01:16 Dose: 650 mg Amlodipine Besylate (Norvasc -) 10 mg PO DAILY [facility] Last Admin: 09/13/17 09:50 Dose: 10 mg Aspirin (Ecotrin -) 81 mg PO DAILY [facility] Last Admin: 09/13/17 09:50 Dose: 81 mg Furosemide (Lasix -) 80 mg PO BIDLASIX [facility] Last Admin: 09/13/17 08:21 Dose: 80 mg Hydralazine HCl (Apresoline -) 50 mg PO BID [facility] Last Admin: 09/13/17 09:50 Dose: 50 mg Sodium Chloride (Normal Saline -) 250 mls @ 3,000 mls/hr IV PRN PRN PRN Reason: Hypotension during Dialysis Stop: 09/13/17 20:25 Insulin Aspart (Novolog Vial Sliding Scale -) 1 vial SQ ACHS [facility] PRN Reason: Protocol Last Admin: 09/13/17 12:34 Dose: 4 unit Labetalol HCl (Normodyne -) 300 mg PO BID [facility] Last Admin: 09/13/17 09:51 Dose: 300 mg Sevelamer Carbonate (Renvela -) 800 mg PO TIDCM [facility] Last Admin: 09/13/17 12:35 Dose: 800 mg Assessment/Plan assmt / Plan # Hydronephrosis possible stone / although not seen on U/S may have passed stone pain management / flomax for spasms consult - Has been seen previously by for Stone ( per patient ) at baseline tolerating PO well / pain controlled OK to d/c home # CKD5 on HD T//S cycle - HD due today nephrology consult still voids # DM uses insulin pump / known to have episodes of hypoglycemia on HD days will do FS with sliding scale # HTN continue home meds # CAD hx of CABG hx of HF ?? last ECHO LVEF?? # COPD / Asthma home meds Problem List - Problems (1) Hydroureteronephrosis Code(s): N13.30 - UNSPECIFIED HYDRONEPHROSIS (2) Right flank pain Code(s): R10.9 - UNSPECIFIED ABDOMINAL PAIN (3) CKD (chronic kidney disease) stage V requiring chronic dialysis Code(s): N18.6 - END STAGE RENAL DISEASE; Z99.2 - DEPENDENCE ON RENAL DIALYSIS (4) ESRD (end stage renal disease) Code(s): N18.6 - END STAGE RENAL DISEASE (5) Diabetes mellitus, insulin dependent (IDDM), uncontrolled Code(s): E10.65 - TYPE 1 DIABETES MELLITUS WITH HYPERGLYCEMIA (6) HTN (hypertension) Code(s): I10 - ESSENTIAL (PRIMARY) HYPERTENSION (7) Obesity Code(s): E66.9 - OBESITY, UNSPECIFIED (8) S/P CABG (coronary artery bypass graft) Code(s): Z95.1 - PRESENCE OF AORTOCORONARY BYPASS GRAFT
--- NOTE | 2017-09-13 13:18 | DS ---
Physical Examination Vital Signs: Vital Signs Temperature 97.9 F 09/13/17 09:28 Pulse Rate 72 09/13/17 09:28 Respiratory Rate 18 09/13/17 09:28 Blood Pressure 114/56 09/13/17 09:28 O2 Sat by Pulse Oximetry (%) 99 09/12/17 15:25 Findings/Remarks: History of Present Illness: The patient is a 56-year-old female, with a significant past medical history of asthma, CAD s/p CABG, CHF, diabetes ( insulin pump), HTN, hyperlipidemia, and CKD5 on HD ( HD on ., ., Sat.), who presents to the ED with right- sided flank pain that began about a week ago "on and off" then got worse last night and severe since about 2 am, which brought her to ER. She describes the pain as 10/10 in severity with radiation from the right upper quadrant / flank to the groin. She reports having a history of kidney stones, but the pain she is experiencing now is much more severe. She also endorses pleuritic chest pain on inspiration; denies having a chest pain at rest. An hour prior to presentation, the patient experienced an episode of nausea and vomiting; no blood seen in the emesis. The patient is able to make urine. She reports episodes of hematuria prior to arrival at ER The patient denies any fever, chills, diarrhea, constipation, or abdominal pain. Denies any urinary symptoms. Denies any shortness of breath or chest pain. Assessment/Plan assmt / Plan # Hydronephrosis possible stone / although not seen on U/S may have passed stone pain management / flomax for spasms consult - Has been seen previously by for Stone ( per patient ) at baseline tolerating PO well / pain controlled OK to d/c home # CKD5 on HD T/ cycle - HD due today nephrology consult still voids # DM uses insulin pump / known to have episodes of hypoglycemia on HD days will do FS with sliding scale # HTN continue home meds # CAD hx of CABG hx of HF ?? last ECHO LVEF?? # COPD / Asthma home meds Constitutional: Yes: Well Nourished, No Distress, Calm Eyes: Yes: Conjunctiva Clear, EOM Intact HENT: Yes: Atraumatic, Normocephalic Neck: Yes: Supple, Trachea Midline Cardiovascular: Yes: Regular Rate and Rhythm Respiratory: Yes: Regular Gastrointestinal: Yes: Normal Bowel Sounds, Abdomen, Obese Renal/: No: CVA Tenderness - Left, CVA Tenderness - Right Breast(s): Yes: WNL Musculoskeletal: Yes: WNL Extremities: Yes: WNL Edema: No Peripheral Pulses WNL: Yes Integumentary: Yes: WNL Neurological: Yes: Alert, Oriented ...Motor Strength: WNL Psychiatric: Yes: Alert, Oriented Labs: CBC, BMP 09/13/17 07:05 09/13/17 07:05 Discharge Summary Reason For Visit: HYDROURETERONEPHROSIS,ESRD Current Active Problems CKD (chronic kidney disease) stage V requiring chronic dialysis (Acute) ESRD (end stage renal disease) (Acute) Hydroureteronephrosis (Acute) Right flank pain (Acute) Condition: Improved - Instructions Referrals: Prema Glass MD [Primary Care Provider] - Jimmy Gil MD [Staff Physician] - Disposition: HOME - Home Medications Comprehensive Discharge Medication List: Ambulatory Orders Sevelamer Carbonate [Renvela -] 800 mg PO TID 11/29/14 Amlodipine Besylate [Norvasc -] 10 mg PO DAILY tablet 12/03/14 Aspirin [Aspirin EC] 81 mg PO DAILY 09/12/17 Furosemide [Lasix] 80 mg PO BID 09/12/17 Labetalol HCl [Normodyne -] 300 mg PO BID 09/12/17 hydrALAZINE HCL [Apresoline -] 50 mg PO BID 09/12/17 Acetaminophen [Tylenol .Regular Strength -] 650 mg PO Q4H PRN tablet 09/13/17 Patient to resume HD on previous schedule Monday / Monday
--- NOTE | 2017-09-13 13:19 | PN ---
Progress Note, Physician History of Present Illness: Pt seen and examined at bedside. She is awake and alert. She feels that the pain has improved. - Current Medication List Current Medications: Active Medications Acetaminophen (Tylenol -) 650 mg PO Q4H PRN PRN Reason: PAIN LEVEL 1-5 Last Admin: 09/13/17 01:16 Dose: 650 mg Amlodipine Besylate (Norvasc -) 10 mg PO DAILY [facility] Last Admin: 09/13/17 09:50 Dose: 10 mg Aspirin (Ecotrin -) 81 mg PO DAILY [facility] Last Admin: 09/13/17 09:50 Dose: 81 mg Furosemide (Lasix -) 80 mg PO BIDLASIX [facility] Last Admin: 09/13/17 08:21 Dose: 80 mg Hydralazine HCl (Apresoline -) 50 mg PO BID [facility] Last Admin: 09/13/17 09:50 Dose: 50 mg Sodium Chloride (Normal Saline -) 250 mls @ 3,000 mls/hr IV PRN PRN PRN Reason: Hypotension during Dialysis Stop: 09/13/17 20:25 Insulin Aspart (Novolog Vial Sliding Scale -) 1 vial SQ ACHS [facility] PRN Reason: Protocol Last Admin: 09/13/17 12:34 Dose: 4 unit Labetalol HCl (Normodyne -) 300 mg PO BID [facility] Last Admin: 09/13/17 09:51 Dose: 300 mg Sevelamer Carbonate (Renvela -) 800 mg PO TIDCM [facility] Last Admin: 09/13/17 12:35 Dose: 800 mg - Objective Vital Signs: Vital Signs Temperature 97.9 F 09/13/17 09:28 Pulse Rate 72 09/13/17 09:28 Respiratory Rate 18 09/13/17 09:28 Blood Pressure 114/56 09/13/17 09:28 O2 Sat by Pulse Oximetry (%) 99 09/12/17 15:25 Constitutional: Yes: Calm Eyes: Yes: Conjunctiva Clear HENT: Yes: Atraumatic Neck: Yes: Supple Cardiovascular: Yes: S1, S2 Respiratory: Yes: CTA Bilaterally Gastrointestinal: Yes: Soft Genitourinary: Yes: WNL Musculoskeletal: Yes: WNL Edema: No Neurological: Yes: Oriented Psychiatric: Yes: Oriented Labs: CBC, BMP 09/13/17 07:05 09/13/17 07:05 INR, PTT INR 0.90 (0.82-1.09) 09/12/17 08:21 Problem List - Problems (1) ESRD (end stage renal disease) Code(s): N18.6 - END STAGE RENAL DISEASE (2) Hydroureteronephrosis Code(s): N13.30 - UNSPECIFIED HYDRONEPHROSIS (3) Right flank pain Code(s): R10.9 - UNSPECIFIED ABDOMINAL PAIN (4) Diabetes mellitus, insulin dependent (IDDM), uncontrolled Code(s): E10.65 - TYPE 1 DIABETES MELLITUS WITH HYPERGLYCEMIA (5) HTN (hypertension) Code(s): I10 - ESSENTIAL (PRIMARY) HYPERTENSION Assessment/Plan Current Medications Generic Name Dose Route Start Last Admin Trade Name Freq PRN Reason Stop Dose Admin Acetaminophen 650 mg 09/12/17 17:26 09/13/17 01:16 Tylenol - PO 650 mg Q4H PRN Administration PAIN LEVEL 1-5 Amlodipine Besylate 10 mg 09/13/17 10:00 09/13/17 09:50 Norvasc - PO 10 mg DAILY [facility] Administration Aspirin 81 mg 09/13/17 10:00 09/13/17 09:50 Ecotrin - PO 81 mg DAILY [facility] Administration Furosemide 80 mg 09/13/17 08:00 09/13/17 08:21 Lasix - PO 80 mg BIDLASIX [facility] Administration Hydralazine HCl 50 mg 09/12/17 22:00 09/13/17 09:50 Apresoline - PO 50 mg BID [facility] Administration Sodium Chloride 250 mls @ 3,000 mls/hr 09/12/17 20:26 Normal Saline - IV 09/13/17 20:25 PRN PRN Hypotension during Dialysis Insulin Aspart 1 vial 09/12/17 22:00 09/13/17 12:34 Novolog Vial Sliding Scale - SQ 4 unit ACHS [facility] Administration Protocol Labetalol HCl 300 mg 09/12/17 22:00 09/13/17 09:51 Normodyne - PO 300 mg BID [facility] Administration Sevelamer Carbonate 800 mg 09/12/17 17:30 09/13/17 12:35 Renvela - PO 800 mg TIDCM [facility] Administration Impression 1. ESRD 2. DM 3. HTN 4. hydronephrosis 5. CHF 6. asthma Plan - pt tolerated HD yesterday - pain has resolved - pt scheduled for HD as outpt tomorrow - discussed with medical team, she is going to be discharged today - will need follow up with urology for hydro - HD: 4 hrs, opti 180, bfr 500, dw 111 kg, 2 k bath, heparin 3000 bolus,
[2017-09-14 08:12] LABS: HBSAG SCREEN Negative (Negative); HEP B CORE AB, TOT Negative (Negative)
== END 2017-09-13 14:05 | disposition home or self-care (01) | DRG 694 ==
LOC: JER 06:15 → JERBED 12:35 → J5S 15:27
PROVIDERS: ADMIT Family Medicine; ATTEND Family Medicine
PROC: 5A1D70Z Performance of Urinary Filtration, Intermittent, Less than 6 Hours Per Day (ICD-10-PCS; principal; 2017-09-12)
DX: N13.30 Unspecified hydronephrosis (principal); I13.2 Hypertensive heart and chronic kidney disease with heart failure and with stage 5 chronic kidney disease, or end stage renal disease; I25.10 Atherosclerotic heart disease of native coronary artery without angina pectoris; N18.6 End stage renal disease; E78.5 Hyperlipidemia, unspecified; J45.909 Unspecified asthma, uncomplicated; E66.9 Obesity, unspecified; Z68.35 Body mass index [BMI] 35.0-35.9, adult; E11.22 Type 2 diabetes mellitus with diabetic chronic kidney disease; E11.65 Type 2 diabetes mellitus with hyperglycemia; I50.9 Heart failure, unspecified; Z79.4 Long term (current) use of insulin; Z99.2 Dependence on renal dialysis; Z95.1 Presence of aortocoronary bypass graft; Z87.442 Personal history of urinary calculi; Z78.0 Asymptomatic menopausal state
CPT/HCPCS: 36415; 71045-TC-FY; 74176-TC; 80053; 81003; 81015; 82550; 82553; 82962; 83690; 84484; 85025; 85610; 85730; 86704; 86706; 86708; 86850; 86900; 86901; 87340; 93005; 93010; 99285-25; J1644

== ENCOUNTER 2018-02-11 21:13 | Observation (INO) | payer OTHER ==
--- NOTE | 2018-02-11 22:08 | PDOC ---
History of Present Illness - General History Source: Patient Exam Limitations: No Limitations - History of Present Illness Initial Comments: 02/11/18 22:46 The patient is a 57 year old female accompanied with her daughter, with a past medical history of CABG (s/p triple bypass), HTN, HLD, CAD, CHF, diabetes, asthma, kidney stones, and ESRD (dialysis on Monday,, Monday), who presents to the emergency department for evaluation of abdominal pain. The patient reports generalized weakness and worsening left lower quadrant abdominal pain since yesterday morning, worse today at 5pm. She describes the abdominal pain as epigastric, and waxing and waning in nature. Patient reports acute onset of nausea with bilious emesis at 5pm today. She reports associated decrease in appetite, subjective fever, chills, and chronic dysuria. Patient also reports pleuritic chest pain, but denies shortness of breath. She notes she felt weak after her dialysis on Monday. As per daughter at bedside, the patient has had 2 kidney stones in the past 2 months, and notes the patient passed only 1. Pt denies taking any medication for the aforementioned pain, but reports taking aspirin daily. The patient shortness of breath, headache, and dizziness. Denies diarrhea, constipation, hematuria, and urinary urgency/frequency. Allergies: Theophylline, bees, tropical fruits Social History: No reported alcohol, cigarette, or drug use. Surgical History: CABG x3 Vessels (2010), LLA fistula, tubal ligation PCP: Dr. Glass <Juve Blanchard - Last Filed: 02/11/18 22:48> <Dotty Clifton - Last Filed: 02/17/18 04:39> - General Chief Complaint: Weakness Stated Complaint: WEAKNESS/ABDOMINAL PAIN Time Seen by Provider: 02/11/18 21:54 Past History <Juve Blanchard - Last Filed: 02/11/18 22:48> - Past Medical History Anemia: No Asthma: Yes Cancer: No Cardiac Disorders: Yes ("VALVE REPAIRED AND NARROW ARTERIES") CVA: No COPD: No CHF: Yes (2010) Dementia: No Diabetes: Yes Dialysis: Yes (,,) GI Disorders: No Disorders: No HTN: Yes Hypercholesterolemia: Yes Liver Disease: No Seizures: No Thyroid Disease: No - Surgical History Abdominal Surgery: Yes (tubal ligation) Appendectomy: No Cardiac Surgery: Yes (CABG 3 VESSELS 2010) Cholecystectomy: No Lung Surgery: No Neurologic Surgery: No Orthopedic Surgery: Yes (L KNEE ARTHROSCOPY) - Family Disease History Family Disease History: Diabetes: Mother, Heart Disease: Father - Immunization History Immunization Up to Date: Yes - Suicide/Smoking/Psychosocial Hx Smoking History: Never smoked Have you smoked in the past 12 months: No If you are a former smoker, when did you quit?: 1995 Information on smoking cessation initiated: No Hx Alcohol Use: No Drug/Substance Use Hx: No Substance Use Type: None Hx Substance Use Treatment: No <Dotty Clifton - Last Filed: 02/17/18 04:39> - Past Medical History Allergies/Adverse Reactions: Allergies Allergy/AdvReac Type Severity Reaction Status Date / Time theophylline Allergy Severe THROAT Verified 02/11/18 21:47 SWELLING BEE'S Allergy THROAT Uncoded 09/12/17 06:55 SWELLING TROPICAL FRUITS Allergy THROAT Uncoded 09/12/17 06:55 SWELLING Home Medications: Ambulatory Orders Amlodipine Besylate 10 mg PO DAILY 02/11/18 Aspirin [Ecotrin] 81 mg PO DAILY 02/11/18 Docusate Sodium [Colace -] 100 mg PO BID 02/11/18 Furosemide 80 mg PO DAILY 02/11/18 Hydroxyzine HCl 10 mg PO HS 02/11/18 Labetalol HCl 300 mg PO BID 02/11/18 Sevelamer Carbonate 800 mg PO TID 02/11/18 Bismuth Subsalicylate [Pepto-Bismol -] 262 mg PO ASDIR 30 Days #30 tab.chew Pantoprazole Sodium [Protonix -] 40 mg PO DAILY 30 Days #30 tablet.ec 02/15/18 Review of Systems - Review of Systems Able to Perform ROS?: Yes Comments:: GENERAL/CONSTITUTIONAL: (+)Generalized weakness. No fever or chills. HEAD, EYES, EARS, NOSE AND THROAT: No change in vision. No ear pain or discharge. No sore throat. CARDIOVASCULAR: (+)chest pain. No shortness of breath. RESPIRATORY: No cough, wheezing, or hemoptysis. GASTROINTESTINAL: (+)nausea. (+)vomiting. No diarrhea or constipation. GENITOURINARY: (+)dysuria. No frequency, or change in urination. MUSCULOSKELETAL: (+)Epigastric pain. (+)LLQ abdominal pain. No joint pain. No neck pain. SKIN: No rash NEUROLOGIC: No headache, vertigo, loss of consciousness, or change in strength/ sensation. ENDOCRINE: No increased thirst. No abnormal weight change. HEMATOLOGIC/LYMPHATIC: No anemia, easy bleeding, or history of blood clots. ALLERGIC/IMMUNOLOGIC: No hives or skin allergy. <DicksonjasonJuve - Last Filed: 02/11/18 22:48> *Physical Exam - Vital Signs Last Vital Signs Temp Pulse Resp BP Pulse Ox 99.3 F 73 20 135/59 98 02/11/18 21:47 02/11/18 21:47 02/11/18 21:47 02/11/18 21:47 02/11/18 21:47 - Physical Exam Comments: GENERAL: Awake, alert, and fully oriented, in no acute distress HEAD: No signs of trauma EYES: PERRLA, EOMI, sclera anicteric, conjunctiva clear ENT: Auricles normal inspection, hearing grossly normal, nares patent, oropharynx clear without exudates. Moist mucosa NECK: Normal ROM, supple, no lymphadenopathy, JVD, or masses LUNGS: Breath sounds equal, clear to auscultation bilaterally. No wheezes, and no crackles HEART: Regular rate and rhythm, normal S1 and S2, no murmurs, rubs or gallops ABDOMEN: (+)Epigastric and LUQ abdominal tenderness without rebound, guarding, or masses. (+)Flatus. (+)Obese abdomen. Old ventral hernias. Small surgical scars on abdomen from CABG. BACK: (+)Chronic midline and paraspinal tenderness. No flank pain. EXTREMITIES: Normal range of motion, no edema. No clubbing or cyanosis. No cords, erythema, or tenderness NEUROLOGICAL: Cranial nerves II through XII grossly intact. Normal speech, normal gait SKIN: Warm, Dry, normal turgor, no rashes or lesions noted. <SantoJuve - Last Filed: 02/11/18 22:48> - Vital Signs Last Vital Signs Temp Pulse Resp BP Pulse Ox 99.3 F 73 20 135/59 98 02/11/18 21:47 02/11/18 21:47 02/11/18 21:47 02/11/18 21:47 02/11/18 21:47 <Dotty Clifton - Last Filed: 02/17/18 04:39> ED Treatment Course - LABORATORY CBC & Chemistry Diagram: 02/11/18 22:40 02/11/18 22:40 <Juve Blanchard - Last Filed: 02/11/18 22:48> - LABORATORY CBC & Chemistry Diagram: 02/15/18 06:25 02/15/18 06:25 <Dotty Clifton - Last Filed: 02/17/18 04:39> Medical Decision Making - Medical Decision Making 02/11/18 23:12 CBC is normal. Pt is drinking for a CT scan to happen at 12:30am 02/11/18 23:24 Pt is vomiting. We will give zofran IV 02/12/18 02:24 Patient Name: PATRICIA ANDERSON THIS IS A PRELIMINARY REPORT FROM [facility] DATE OF SERVICE: 2018-02-12 00:31:45 IMAGES: 485 EXAM: CT ABDOMEN AND PELVIS WITHOUT CONTRAST No nephrolithiasis, ureterolithiasis or obstructive uropathy. No bladder calculi. Cystic foci bilateral kidneys. Unremarkable pancreas and gallbladder. Hepatomegaly. 7.5 x 7.4 x 2.6 cm bilobed epigastric ventral hernia containing fat. Small umbilical hernia containing fat. Small left supraumbilical ventral hernia containing small free fluid. Possible partly seen lipoma proximal anterior left thigh. No bowel obstruction, colitis or free air. Normal appendix. Median sternotomy. Small right pleural effusion. Individualized dose optimization techniques were used for this CT. THIS DOCUMENT HAS BEEN ELECTRONICALLY SIGNED 02/17/18 04:38 Pt admitted for surgical eval in the AM, as she has a fluid filled ventral hernia. PMD is aware and PMD is requesting Dr. Yao of surgery <Dotty Clifton - Last Filed: 02/17/18 04:39> *DC/Admit/Observation/Transfer - Attestations Scribe Attestion: Documentation prepared by Juve Blanchard, acting as medical dermatologist for Dotty Clifton MD. <Juve Blanchard - Last Filed: 02/11/18 22:48> - Discharge Dispostion Decision to Admit order: Yes <Dotty Clifton - Last Filed: 02/17/18 04:39> Diagnosis at time of Disposition: Abdominal pain, Hernia - Discharge Dispostion Disposition: HOME Condition at time of disposition: Improved
[2018-02-11 22:46] LABS: BASO % 0.5 % (0-2.0); EOS % 0.7 % (0-4.5); HEMATOCRIT 38.3 % (32.4-45.2); MCH 34.3 pg (25.7-33.7); MEAN CELL VOLUME 100.9 fl (80-96); MONO % 5.9 % (3.8-10.2); NEUT % 89.9 % (42.8-82.8); PLATELET COUNT 238 K/MM3 (134-434); RDW 14.2 % (11.6-15.6); WHITE BLOOD COUNT 7.7 K/mm3 (4.0-10.0)
[2018-02-11 22:57] LABS: INR 0.95 (0.83-1.09); PROTHROMBIN TIME (PATIENT) 10.7 SEC (9.7-13.0)
[2018-02-11 23:09] LABS: ALBUMIN 3.5 g/dl (3.4-5.0); ALK PHOS 110 U/L (45-117); AMYLASE 53 U/L (25-115); ANION GAP 10 MMOL/L (8-16); BILIRUBIN,TOTAL 0.5 mg/dL (0.2-1.0); BLOOD UREA NITROGEN 43 mg/dL (7-18); CALCIUM 8.7 mg/dL (8.5-10.1); CHLORIDE 99 mmol/L (98-107); CO2 28 mmol/L (21-32); CREATININE 7.3 mg/dL (0.55-1.02); GLUCOSE,RANDOM 189 mg/dL (74-106); LIPASE 136 U/L (73-393); POTASSIUM 4.3 mmol/L (3.5-5.1); SGOT/AST 77 U/L (15-37); SGPT/ALT 58 U/L (12-78); SODIUM 137 mmol/L (136-145)
[2018-02-11] MEDS ORDERED: ONDANSETRON 4 MG/2 ML VIAL IVPB ONE (23:18)
[2018-02-11] MEDS ORDERED: ONDANSETRON 4 MG/2 ML VIAL ONE (23:19)
[2018-02-12 01:03] LABS: URINE APPEARANCE CLOUDY; URINE BILIRUBIN NEGATIVE (<2.0 mg/dL); URINE COLOR YELLOW; URINE GLUCOSE (UA) 1+ (NEGATIVE); URINE KETONE NEGATIVE (NEGATIVE); URINE LEUK ESTERASE TRACE (NEGATIVE); URINE NITRITE NEGATIVE (NEGATIVE); URINE UROBILINOGEN NEGATIVE mg/dL (0.2-1.0)
[2018-02-12 01:05] LABS: URINE PROTEIN 3+ (NEGATIVE)
[2018-02-12 01:07] LABS: EPI CELLS MODERATE /HPF (FEW); URINE HYALINE CAST 3 /lpf; URINE MUCUS RARE
--- NOTE | 2018-02-12 07:29 | CONSULT ---
Consult Consult Specialty:: General Surgery Referred by:: Quan WIGGINS Reason for Consultation:: abdominal pain - History of Present Illness Chief Complaint: abdominal pain History of Present Illness: 56 yo female, with PMH morbid obesity, asthma, CAD s/p CABG, CHF, diabetes ( insulin pump), HTN, hyperlipidemia, and CKD5 on HD ( HD on Tu., Th., Sat.) , who presents to the ED with abdominal pain that began about a week ago, associated with one episode of vomiting which brought her to ER. She describes the pain as 10/10 in severity in the epigastric area associated with her hernia. She had CABG in 2010 and since that time has had an upper abdominal hernia that is intermittently uncomfortable. On exam she is not in severe pain. She has previously been assessed by surgeons and recommended bariatric surgery. She was adamant that she did not want to have mesh if the hernia was to require repair. She denies any fever, chills, diarrhea, constipation, shortness of breath or chest pain. we were asked to assess. - History Source History Provided By: Patient, Medical Record Limitations to Obtaining History: No Limitations - Past Medical History Cardio/Vascular: Yes: CAD, CHF, HTN, Hyperlipdemia Pulmonary: Yes: Asthma Renal/: Yes: Renal Failure, Hemodialysis, Renal Calculi (per patient) - Past Surgical History Past Surgical History: Yes: AV Fistula/Graft, CABG - Alcohol/Substance Use Hx Alcohol Use: No - Smoking History Smoking history: Never smoked Have you smoked in the past 12 months: No If you are a former smoker, when did you quit?: 1995 - Social History ADL: Independent Place of : [facility] History of Recent Travel: No Home Medications - Allergies Allergies/Adverse Reactions: Allergies Allergy/AdvReac Type Severity Reaction Status Date / Time theophylline Allergy Severe THROAT Verified 02/11/18 21:47 SWELLING BEE'S Allergy THROAT Uncoded 09/12/17 06:55 SWELLING TROPICAL FRUITS Allergy THROAT Uncoded 09/12/17 06:55 SWELLING - Home Medications Home Medications: Ambulatory Orders Amlodipine Besylate 10 mg PO DAILY 02/11/18 Aspirin [Ecotrin] 81 mg PO DAILY 02/11/18 Bismuth Subsalicylate [Pepto-Bismol -] 262 mg PO ASDIR 02/11/18 Docusate Sodium [Colace -] 100 mg PO BID 02/11/18 Furosemide 80 mg PO DAILY 02/11/18 Hydroxyzine HCl 10 mg PO HS 02/11/18 Labetalol HCl 300 mg PO BID 02/11/18 Sevelamer Carbonate 800 mg PO TID 02/11/18 Review of Systems - Review of Systems Constitutional: denies: Chills, Fever Eyes: denies: Blind Spots, Recent Change in Vision HENT: denies: Difficult Swallowing, Throat Pain Neck: denies: Decreased ROM, Tenderness Cardiovascular: denies: Chest Pain, Edema Respiratory: denies: Cough, SOB Gastrointestinal: reports: Abdominal Pain. denies: Bloating, Constipation, Diarrhea Genitourinary: denies: Discharge, Dysuria Musculoskeletal: denies: Muscle Pain, Muscle Weakness Integumentary: denies: Bruising, Pruritis Neurological: denies: Seizure, Syncope Endocrine: denies: Unexplained Weight Gain, Unexplained Weight Loss Hematology/Lymphatic: denies: Easily Bruised, Excessive Bleeding Psychiatric: denies: Anxiety, Depression Physical Exam Vital Signs: Vital Signs Temperature 98.6 F 02/12/18 07:13 Pulse Rate 56 L 02/12/18 07:13 Respiratory Rate 18 02/12/18 07:13 Blood Pressure 112/55 02/12/18 07:13 O2 Sat by Pulse Oximetry (%) 99 02/12/18 07:13 Vital Signs Period Temp Pulse Resp BP Sys/Griffith Pulse Ox Last 24 Hr 97.8 F-99.3 F 56-73 18-20 112-135/55-59 98-99 Intake & Output 02/11/18 02/12/18 02/12/18 23:59 07:59 15:59 Weight 242 lb Other: Height 5 ft 10 in Body Mass Index (BMI) 34.7 Weight Measurement Method Est/Stated by Patient Constitutional: Yes: Well Nourished, No Distress, Calm, Obese Eyes: Yes: Conjunctiva Clear, EOM Intact HENT: Yes: Atraumatic, Normocephalic Neck: Yes: Supple, Trachea Midline Cardiovascular: Yes: Regular Rate and Rhythm, S1, S2 Respiratory: Yes: Regular, CTA Bilaterally, Other (thoracotomy scar) Gastrointestinal: Yes: Normal Bowel Sounds, Soft, Abdomen, Obese, Hernia (4cm epigastric and 2cm supraumbilical hernia, reducible non-tender, no skin chnages , no peritoneal signs), Palpable Mass. No: Distention, Melena, Pulsatile Mass, Rectal Bleeding, Tenderness, Tenderness, Epigastrium, Tenderness, Rebound ...Rectal Exam: Yes: Deferred Renal/: No: CVA Tenderness - Left, CVA Tenderness - Right Extremities: No: Cool, Cyanosis Edema: Yes Edema: LLE: 1+, RLE: 1+ Peripheral Pulses WNL: Yes Integumentary: Yes: Incision. No: Erythema, Jaundice Neurological: Yes: Alert, Oriented Psychiatric: Yes: Alert, Oriented Labs: CBC, BMP 02/11/18 22:40 02/11/18 22:40 Imaging - Results Cat Scan: Report Reviewed, Image Reviewed (epigatric and supraumbilical fat containing ventral hernias, no SBO) Problem List - Problems (1) Ventral hernia without obstruction or gangrene Assessment/Plan: 57yo female MMP including morbid obesity with symptomatically ventral hernias ( epigastric and supraumbilical) reducible, no SBO, normal WBC. Emergency surgical intervention is not indicated at this time. diet as tolerated adequate analgesia bariatric surgery followup will follow Thank you for the opportunity to participate in the care of this patient. Code(s): K43.9 - VENTRAL HERNIA WITHOUT OBSTRUCTION OR GANGRENE (2) CKD (chronic kidney disease) stage V requiring chronic dialysis Code(s): N18.6 - END STAGE RENAL DISEASE; Z99.2 - DEPENDENCE ON RENAL DIALYSIS (3) Diabetes mellitus, insulin dependent (IDDM), uncontrolled Code(s): E10.65 - TYPE 1 DIABETES MELLITUS WITH HYPERGLYCEMIA (4) ESRD (end stage renal disease) Code(s): N18.6 - END STAGE RENAL DISEASE (5) Elevated glucose Code(s): R73.09 - OTHER ABNORMAL GLUCOSE (6) HTN (hypertension) Code(s): I10 - ESSENTIAL (PRIMARY) HYPERTENSION (7) Hydroureteronephrosis Code(s): N13.30 - UNSPECIFIED HYDRONEPHROSIS (8) Obesity Code(s): E66.9 - OBESITY, UNSPECIFIED (9) Renal failure Code(s): N19 - UNSPECIFIED KIDNEY FAILURE (10) S/P CABG (coronary artery bypass graft) Code(s): Z95.1 - PRESENCE OF AORTOCORONARY BYPASS GRAFT
[2018-02-12] MEDS ORDERED: BISMUTH SUBSALICYLATE 262 MG TAB.CHEW PO SCH (09:15)
[2018-02-12] MEDS ORDERED: SODIUM CHLORIDE 250 ML IV PRN (10:03)
--- NOTE | 2018-02-12 10:24 | EKG ---
Test Reason : Blood Pressure : / mmHG Vent. Rate : 072 BPM Atrial Rate : 072 BPM P-R Int : 180 ms QRS Dur : 084 ms QT Int : 402 ms P-R-T Axes : 047 -22 036 degrees QTc Int : 440 ms NORMAL SINUS RHYTHM WITH SINUS ARRHYTHMIA MINIMAL VOLTAGE CRITERIA FOR LVH, MAY BE NORMAL VARIANT BORDERLINE ECG WHEN COMPARED WITH ECG OF 12-SEP-2017 09:35, NO SIGNIFICANT CHANGE WAS FOUND Confirmed by ALFONSO WIGGINS, MIC ([id number]) on 02/12/2018 10:24:41 AM Referred By: Confirmed By:MIC HAMILTON MD
[2018-02-12] MEDS: FUROSEMIDE 40 MG TABLET (FP) PO SCH (11:03)
[2018-02-12] MEDS: ASPIRIN COATED 81 MG TABLET.EC PO SCH (11:03)
[2018-02-12] MEDS: amLODIPine BESYLATE 10 MG TABLET (FP) PO SCH (11:03)
[2018-02-12] MEDS: LABETALOL HCL 100 MG TABLET (FP) PO SCH ×2 (11:03→21:49)
[2018-02-12] MEDS: DOCUSATE SODIUM 100 MG CAPSULE (FP) PO SCH ×2 (11:03→21:49)
[2018-02-12] MEDS: SEVELAMER CARBONATE 800 MG TAB (FP) PO SCH ×2 (11:03→17:56)
--- NOTE | 2018-02-12 12:49 | HP ---
Admitting History and Physical - Admission Chief Complaint: abdominal pain History of Present Illness: 56 yo female, with PMH morbid obesity, asthma, CAD s/p CABG, CHF, diabetes ( insulin pump), HTN, hyperlipidemia, and CKD5 on HD ( HD on ., ., Sat.) , who presents to the ED with abdominal pain that began about a week ago, associated with one episode of vomiting which brought her to ER. She describes the pain as 10/10 in severity in the epigastric area associated with her hernia. She had CABG in 2010 and since that time has had an upper abdominal hernia that is intermittently uncomfortable. On exam she is not in severe pain. She has previously been assessed by surgeons and recommended bariatric surgery. She was adamant that she did not want to have mesh if the hernia was to require repair. She denies any fever, chills, diarrhea, constipation, shortness of breath or chest pain. we were asked to assess. Patient was examined late morning (10am) had had breakfast without problems and currently eating grilled cheese sandwich and fries, while giving hx. Provides hx of prior assessments, would like an abdominal binder, and is concerned her "liver" will come "out". Currently does not report pain - - Past Medical History Cardiovascular: Yes: CAD, CHF, HTN, Hyperlipdemia Pulmonary: Yes: Asthma Renal/: Yes: Renal Failure, Hemodialysis, Renal Calculi (per patient) - Past Surgical History Past Surgical History: Yes: AV Fistula/Graft, CABG - Smoking History Smoking history: Never smoked Have you smoked in the past 12 months: No If you are a former smoker, when did you quit?: 1995 - Alcohol/Substance Use Hx Alcohol Use: No - Social History ADL: Independent History of Recent Travel: No Home Medications - Allergies Allergies/Adverse Reactions: Allergies Allergy/AdvReac Type Severity Reaction Status Date / Time theophylline Allergy Severe THROAT Verified 02/11/18 21:47 SWELLING BEE'S Allergy THROAT Uncoded 09/12/17 06:55 SWELLING TROPICAL FRUITS Allergy THROAT Uncoded 09/12/17 06:55 SWELLING - Home Medications Home Medications: Ambulatory Orders Amlodipine Besylate 10 mg PO DAILY 02/11/18 Aspirin [Ecotrin] 81 mg PO DAILY 02/11/18 Bismuth Subsalicylate [Pepto-Bismol -] 262 mg PO ASDIR 02/11/18 Docusate Sodium [Colace -] 100 mg PO BID 02/11/18 Furosemide 80 mg PO DAILY 02/11/18 Hydroxyzine HCl 10 mg PO HS 02/11/18 Labetalol HCl 300 mg PO BID 02/11/18 Sevelamer Carbonate 800 mg PO TID 02/11/18 Physical Examination Vital Signs: Vital Signs Temperature 97.8 F 02/12/18 09:09 Pulse Rate 64 02/12/18 09:09 Respiratory Rate 20 02/12/18 09:09 Blood Pressure 118/59 02/12/18 09:09 O2 Sat by Pulse Oximetry (%) 99 02/12/18 07:13 Constitutional: Yes: Well Nourished, No Distress, Obese Eyes: Yes: WNL, Conjunctiva Clear HENT: Yes: WNL, Atraumatic, Normocephalic Neck: Yes: Supple, Trachea Midline Cardiovascular: Yes: Regular Rate and Rhythm Respiratory: Yes: CTA Bilaterally Gastrointestinal: Yes: Normal Bowel Sounds, Soft, Abdomen, Obese, Other (large hernia at distal site of strnotomy / not tender or inflamed) Renal/: Yes: WNL Breast(s): Yes: WNL Musculoskeletal: Yes: WNL Extremities: No: Cyanosis, Deformity, Erythema Edema: No Peripheral Pulses WNL: Yes Integumentary: Yes: WNL Neurological: Yes: Alert, Oriented Psychiatric: Yes: WNL, Alert, Oriented Labs: CBC, BMP 02/11/18 22:40 02/11/18 22:40 Problem List - Problems (1) Abdominal pain Code(s): R10.9 - UNSPECIFIED ABDOMINAL PAIN (2) Hernia Code(s): K46.9 - UNSPECIFIED ABDOMINAL HERNIA WITHOUT OBSTRUCTION OR GANGRENE (3) Ventral hernia without obstruction or gangrene Code(s): K43.9 - VENTRAL HERNIA WITHOUT OBSTRUCTION OR GANGRENE (4) CKD (chronic kidney disease) stage V requiring chronic dialysis Code(s): N18.6 - END STAGE RENAL DISEASE; Z99.2 - DEPENDENCE ON RENAL DIALYSIS (5) Diabetes mellitus, insulin dependent (IDDM), uncontrolled Code(s): E10.65 - TYPE 1 DIABETES MELLITUS WITH HYPERGLYCEMIA (6) HTN (hypertension) Code(s): I10 - ESSENTIAL (PRIMARY) HYPERTENSION (7) Obesity Code(s): E66.9 - OBESITY, UNSPECIFIED (8) S/P CABG (coronary artery bypass graft) Code(s): Z95.1 - PRESENCE OF AORTOCORONARY BYPASS GRAFT Assessment/Plan # abdominal pain GI consult Patient known to Dr Norton Surgical consult - NPO until seen by Surgery Would need cardiac clearance for OR # CKD5 on HD TTS nephrology consult -- arrange for HD # Diabetes continue meds / diet per surgery
--- NOTE | 2018-02-12 12:54 | CONSULT ---
Consult Consult Specialty:: Nephrology Reason for Consultation:: ESRD - History of Present Illness Chief Complaint: abdominal pain History of Present Illness: Pt is a 56 year old female with pmhx of ESRD, obesity, CAD, CHF, DM and HTN who presents to the ER with abdominal pain. She says that she has had the pain for about a week. It is intermittent. She did have an episode of vomiting before coming to the ER. She is on HD and I was called to evaluate her. She is in a TTS HD schedule. Her last dialysis session was on Monday. - History Source History Provided By: Patient - Past Medical History Cardio/Vascular: Yes: CAD, CHF, HTN, Hyperlipdemia Pulmonary: Yes: Asthma Renal/: Yes: Renal Failure, Hemodialysis, Renal Calculi (per patient) - Past Surgical History Past Surgical History: Yes: AV Fistula/Graft, CABG - Alcohol/Substance Use Hx Alcohol Use: No - Smoking History Smoking history: Never smoked Have you smoked in the past 12 months: No If you are a former smoker, when did you quit?: 1995 - Social History ADL: Independent History of Recent Travel: No Home Medications - Allergies Allergies/Adverse Reactions: Allergies Allergy/AdvReac Type Severity Reaction Status Date / Time theophylline Allergy Severe THROAT Verified 02/11/18 21:47 SWELLING BEE'S Allergy THROAT Uncoded 09/12/17 06:55 SWELLING TROPICAL FRUITS Allergy THROAT Uncoded 09/12/17 06:55 SWELLING - Home Medications Home Medications: Ambulatory Orders Amlodipine Besylate 10 mg PO DAILY 02/11/18 Aspirin [Ecotrin] 81 mg PO DAILY 02/11/18 Bismuth Subsalicylate [Pepto-Bismol -] 262 mg PO ASDIR 02/11/18 Docusate Sodium [Colace -] 100 mg PO BID 02/11/18 Furosemide 80 mg PO DAILY 02/11/18 Hydroxyzine HCl 10 mg PO HS 02/11/18 Labetalol HCl 300 mg PO BID 02/11/18 Sevelamer Carbonate 800 mg PO TID 02/11/18 Family Disease History - Family Disease History Family History: Denies Review of Systems - Review of Systems Constitutional: reports: No Symptoms Eyes: reports: No Symptoms HENT: reports: No Symptoms Neck: reports: No Symptoms Cardiovascular: reports: No Symptoms Respiratory: reports: No Symptoms Gastrointestinal: reports: Abdominal Pain, Vomiting Genitourinary: reports: No Symptoms Musculoskeletal: reports: No Symptoms Integumentary: reports: No Symptoms Neurological: reports: No Symptoms Endocrine: reports: No Symptoms Hematology/Lymphatic: reports: No Symptoms Psychiatric: reports: No Symptoms Physical Exam Vital Signs: Vital Signs Temperature 97.8 F 02/12/18 09:09 Pulse Rate 64 02/12/18 09:09 Respiratory Rate 20 02/12/18 09:09 Blood Pressure 118/59 02/12/18 09:09 O2 Sat by Pulse Oximetry (%) 99 02/12/18 07:13 Constitutional: Yes: Calm Eyes: Yes: Conjunctiva Clear HENT: Yes: Atraumatic Neck: Yes: Supple Cardiovascular: Yes: S1, S2 Respiratory: Yes: CTA Bilaterally Gastrointestinal: Yes: Normal Bowel Sounds, Soft, Abdomen, Obese, Hernia Renal/: Yes: WNL Musculoskeletal: Yes: WNL Edema: Yes Edema: LLE: Trace, RLE: Trace Neurological: Yes: Oriented Psychiatric: Yes: Oriented Labs: CBC, BMP 02/11/18 22:40 02/11/18 22:40 Laboratory Tests 02/11/18 02/11/18 22:40 22:40 WBC 7.7 Hgb 13.0 Sodium 137 Potassium 4.3 BUN 43 H Creatinine 7.3 H Imaging - Results Chest X-ray: Report Reviewed Cat Scan: Report Reviewed Problem List - Problems (1) Abdominal pain Code(s): R10.9 - UNSPECIFIED ABDOMINAL PAIN (2) ESRD (end stage renal disease) Code(s): N18.6 - END STAGE RENAL DISEASE Assessment/Plan Current Medications Generic Name Dose Route Start Last Admin Trade Name Sav PRN Reason Stop Dose Admin Amlodipine Besylate 10 mg 02/12/18 10:00 02/12/18 11:03 Norvasc - PO 10 mg DAILY SIXTO Administration Aspirin 81 mg 02/12/18 10:00 02/12/18 11:03 Ecotrin - PO 81 mg DAILY SIXTO Administration Docusate Sodium 100 mg 02/12/18 10:00 02/12/18 11:03 Colace - PO 100 mg BID SIXTO Administration Furosemide 80 mg 02/12/18 10:00 02/12/18 11:03 Lasix - PO 80 mg DAILY SIXTO Administration Hydroxyzine HCl 10 mg 02/12/18 22:00 Atarax - PO HS SIXTO Labetalol HCl 300 mg 02/12/18 10:00 02/12/18 11:03 Normodyne - PO 300 mg BID SIXTO Administration Sevelamer Carbonate 800 mg 02/12/18 12:00 02/12/18 11:03 Renvela - PO 800 mg TIDCM SIXTO Administration Impression 1. ESRD 2. DM 3. HTN 4. abdominal pain 5. CHF 6. asthma Plan - HD in am - surgery eval for abd pain - renal diet - discussed with medical attending - HD: 4 hrs, opti 180, bfr 500, dw 111 kg, 2 k bath, heparin 3000 bolus
[2018-02-12] MEDS: hydrOXYzine HCL 10 MG TABLET PO SCH (21:49)
[2018-02-13] MEDS: SEVELAMER CARBONATE 800 MG TAB (FP) PO SCH ×3 (09:00→17:09)
[2018-02-13] MEDS: FUROSEMIDE 40 MG TABLET (FP) PO SCH (09:27)
[2018-02-13] MEDS: ASPIRIN COATED 81 MG TABLET.EC PO SCH (09:27)
[2018-02-13] MEDS: LABETALOL HCL 100 MG TABLET (FP) PO SCH ×2 (09:27→22:04)
[2018-02-13] MEDS: amLODIPine BESYLATE 10 MG TABLET (FP) PO SCH (09:27)
[2018-02-13] MEDS: DOCUSATE SODIUM 100 MG CAPSULE (FP) PO SCH ×2 (09:27→22:04)
--- NOTE | 2018-02-13 10:05 | PN ---
Progress Note, Physician Chief Complaint: abdominal pain History of Present Illness: 56 yo female, with PMH morbid obesity, asthma, CAD s/p CABG, CHF, diabetes ( insulin pump), HTN, hyperlipidemia, and CKD5 on HD ( HD on ., ., Sat.) , who presents to the ED with abdominal pain that began about a week ago, associated with one episode of vomiting which brought her to ED. He has less pain and is tolerating her diet. - Current Medication List Current Medications: Active Medications Amlodipine Besylate (Norvasc -) 10 mg PO DAILY [facility] Last Admin: 02/13/18 09:27 Dose: 10 mg Aspirin (Ecotrin -) 81 mg PO DAILY [facility] Last Admin: 02/13/18 09:27 Dose: 81 mg Docusate Sodium (Colace -) 100 mg PO BID [facility] Last Admin: 02/13/18 09:27 Dose: 100 mg Furosemide (Lasix -) 80 mg PO DAILY [facility] Last Admin: 02/13/18 09:27 Dose: 80 mg Heparin Sodium (Porcine) (Heparin -) 3,000 unit IVPUSH ONCE ONE Stop: 02/13/18 17:33 Hydroxyzine HCl (Atarax -) 10 mg PO HS [facility] Last Admin: 02/12/18 21:49 Dose: 10 mg Sodium Chloride (Normal Saline -) 250 mls @ 3,000 mls/hr IV PRN PRN PRN Reason: Hypotension during Dialysis Stop: 02/13/18 17:32 Labetalol HCl (Normodyne -) 300 mg PO BID [facility] Last Admin: 02/13/18 09:27 Dose: 300 mg Sevelamer Carbonate (Renvela -) 800 mg PO TIDCM [facility] Last Admin: 02/13/18 09:00 Dose: 800 mg - Objective Vital Signs: Vital Signs Temperature 98.5 F 02/13/18 05:49 Pulse Rate 58 L 02/13/18 05:49 Respiratory Rate 20 02/13/18 05:49 Blood Pressure 133/58 02/13/18 05:49 O2 Sat by Pulse Oximetry (%) 98 02/13/18 01:00 Vital Signs Period Temp Pulse Resp BP Sys/Griffith Pulse Ox Last 24 Hr 97.7 F-98.5 F 58-66 18-20 113-133/53-62 98-98 Constitutional: Yes: Well Nourished, No Distress, Calm, Obese Eyes: Yes: Conjunctiva Clear, EOM Intact HENT: Yes: Atraumatic, Normocephalic Neck: Yes: Supple, Trachea Midline Cardiovascular: Yes: Regular Rate and Rhythm, S1, S2 Respiratory: Yes: Regular, CTA Bilaterally Gastrointestinal: Yes: Normal Bowel Sounds, Soft, Abdomen, Obese, Hernia ( epigastric incisonal heria and supraumbilical hernia). No: Tenderness, Tenderness, Epigastrium, Tenderness, Rebound ...Rectal Exam: Yes: Deferred Genitourinary: No: CVA Tenderness - Left, CVA Tenderness - Right Musculoskeletal: No: Muscle Pain, Muscle Weakness Extremities: No: Cool, Cyanosis Edema: No Peripheral Pulses WNL: Yes Peripheral Pulses: Left Radial: 2+, Right Radial: 2+, Left Doralis Pedis: 2+, Right Dorsalis Pedis: 2+ Integumentary: No: Bruising, Erythema, Incision, Jaundice Neurological: Yes: Alert, Oriented Psychiatric: Yes: Alert, Oriented Labs: CBC, BMP 02/11/18 22:40 02/11/18 22:40 INR, PTT INR 0.95 (0.83-1.09) 02/11/18 22:40 Problem List - Problems (1) Ventral hernia without obstruction or gangrene Assessment/Plan: 57yo female MMP including morbid obesity with symptomatically ventral hernias ( epigastric and supraumbilical) reducible, no SBO, normal WBC. Emergency surgical intervention is not indicated at this time. She remained stable overnight and is tolerating diet. Perioperative surgical risk is high and elective repair should no be under taken until significant weight loss occurs. diet as tolerated adequate analgesia bariatric surgery followup Please re-call surgery as needed Code(s): K43.9 - VENTRAL HERNIA WITHOUT OBSTRUCTION OR GANGRENE (2) CKD (chronic kidney disease) stage V requiring chronic dialysis Code(s): N18.6 - END STAGE RENAL DISEASE; Z99.2 - DEPENDENCE ON RENAL DIALYSIS (3) Diabetes mellitus, insulin dependent (IDDM), uncontrolled Code(s): E10.65 - TYPE 1 DIABETES MELLITUS WITH HYPERGLYCEMIA (4) ESRD (end stage renal disease) Code(s): N18.6 - END STAGE RENAL DISEASE (5) Elevated glucose Code(s): R73.09 - OTHER ABNORMAL GLUCOSE (6) HTN (hypertension) Code(s): I10 - ESSENTIAL (PRIMARY) HYPERTENSION (7) Hydroureteronephrosis Code(s): N13.30 - UNSPECIFIED HYDRONEPHROSIS (8) Obesity Code(s): E66.9 - OBESITY, UNSPECIFIED (9) Renal failure Code(s): N19 - UNSPECIFIED KIDNEY FAILURE (10) S/P CABG (coronary artery bypass graft) Code(s): Z95.1 - PRESENCE OF AORTOCORONARY BYPASS GRAFT
[2018-02-13] MEDS ORDERED: HEPARIN NA (PORCINE) 5,000 UNITS/ML 1ML VIAL IVPUSH ONE (10:15)
[2018-02-13 11:32] LABS: HEMATOCRIT 36.7 % (32.4-45.2); HEMOGLOBIN 11.8 GM/dL (10.7-15.3); MCH 32.5 pg (25.7-33.7); MCHC 32.1 g/dl (32.0-36.0); MEAN CELL VOLUME 101.5 fl (80-96); MEAN PLT VOLUME 9.7 fl (7.5-11.1); PLATELET COUNT 237 K/MM3 (134-434); RBC 3.62 M/mm3 (3.60-5.2); RDW 14.2 % (11.6-15.6); WHITE BLOOD COUNT 6.3 K/mm3 (4.0-10.0)
[2018-02-13 12:02] LABS: ANION GAP 12 MMOL/L (8-16); BLOOD UREA NITROGEN 63 mg/dL (7-18); CALCIUM 8.8 mg/dL (8.5-10.1); CHLORIDE 99 mmol/L (98-107); CO2 23 mmol/L (21-32); GLUCOSE,RANDOM 229 mg/dL (74-106); POTASSIUM 4.7 mmol/L (3.5-5.1); SODIUM 134 mmol/L (136-145)
--- NOTE | 2018-02-13 12:15 | PN ---
Progress Note, Physician History of Present Illness: Pt seen and examined at bedside. She is awake and alert. She denies abdominal pain. She is getting HD. - Current Medication List Current Medications: Active Medications Amlodipine Besylate (Norvasc -) 10 mg PO DAILY [facility] Last Admin: 02/13/18 09:27 Dose: 10 mg Aspirin (Ecotrin -) 81 mg PO DAILY [facility] Last Admin: 02/13/18 09:27 Dose: 81 mg Docusate Sodium (Colace -) 100 mg PO BID [facility] Last Admin: 02/13/18 09:27 Dose: 100 mg Furosemide (Lasix -) 80 mg PO DAILY [facility] Last Admin: 02/13/18 09:27 Dose: 80 mg Hydroxyzine HCl (Atarax -) 10 mg PO HS [facility] Last Admin: 02/12/18 21:49 Dose: 10 mg Labetalol HCl (Normodyne -) 300 mg PO BID [facility] Last Admin: 02/13/18 09:27 Dose: 300 mg Pantoprazole Sodium (Protonix -) 40 mg PO DAILY [facility] Sevelamer Carbonate (Renvela -) 800 mg PO TIDCM [facility] Last Admin: 02/13/18 09:00 Dose: 800 mg - Objective Vital Signs: Vital Signs Temperature 97.7 F 02/13/18 09:00 Pulse Rate 58 L 02/13/18 09:00 Respiratory Rate 18 02/13/18 09:00 Blood Pressure 119/51 02/13/18 09:00 O2 Sat by Pulse Oximetry (%) 98 02/13/18 01:00 Constitutional: Yes: Calm Eyes: Yes: Conjunctiva Clear HENT: Yes: Atraumatic Neck: Yes: Supple Cardiovascular: Yes: S1, S2 Respiratory: Yes: CTA Bilaterally Gastrointestinal: Yes: Normal Bowel Sounds, Soft, Abdomen, Obese Genitourinary: Yes: WNL Musculoskeletal: Yes: WNL Edema: No Neurological: Yes: Oriented Psychiatric: Yes: Oriented Labs: CBC, BMP 02/13/18 10:40 INR, PTT INR 0.95 (0.83-1.09) 02/11/18 22:40 Problem List - Problems (1) Abdominal pain Code(s): R10.9 - UNSPECIFIED ABDOMINAL PAIN (2) ESRD (end stage renal disease) Code(s): N18.6 - END STAGE RENAL DISEASE Assessment/Plan Current Medications Generic Name Dose Route Start Last Admin Trade Name Sav PRN Reason Stop Dose Admin Amlodipine Besylate 10 mg 02/12/18 10:00 02/13/18 09:27 Norvasc - PO 10 mg DAILY [facility] Administration Aspirin 81 mg 02/12/18 10:00 02/13/18 09:27 Ecotrin - PO 81 mg DAILY [facility] Administration Docusate Sodium 100 mg 02/12/18 10:00 02/13/18 09:27 Colace - PO 100 mg BID [facility] Administration Furosemide 80 mg 02/12/18 10:00 02/13/18 09:27 Lasix - PO 80 mg DAILY [facility] Administration Hydroxyzine HCl 10 mg 02/12/18 22:00 02/12/18 21:49 Atarax - PO 10 mg HS [facility] Administration Labetalol HCl 300 mg 02/12/18 10:00 02/13/18 09:27 Normodyne - PO 300 mg BID [facility] Administration Pantoprazole Sodium 40 mg 02/13/18 11:15 Protonix - PO DAILY [facility] Sevelamer Carbonate 800 mg 02/12/18 12:00 02/13/18 09:00 Renvela - PO 800 mg TIDCM [facility] Administration Impression 1. ESRD 2. DM 3. HTN 4. abdominal pain 5. CHF 6. asthma Plan - HD today - surgery follow up - discussed with medical attending - renal diet - HD: 4 hrs, opti 180, bfr 500, dw 111 kg, 2 k bath, heparin 3000 bolus
[2018-02-13 12:26] LABS: CREATININE 9.1 mg/dL (0.55-1.02)
--- NOTE | 2018-02-13 13:02 | CON.GI ---
Consult Consult Specialty:: GI Referred by:: Dr. Braun Reason for Consultation:: Abdominal pain - History of Present Illness Chief Complaint: Abdominal pain History of Present Illness: 57F admitted for evaluation of abdominal pain. She states that she3 has been experiencing non radiating epigastric pain, pain with swallowing and intermittent episodes of vomiting. She denies any change in bowel habits or melena. She is on ASA 81mg once daily but it does not appear per the home med list that she is on any GI prophlyaxis. She denies rectal bleeding or melena. Her MCV is elevated. Work-up this admission included a CT scan with PO contrast that revealed a small fat containing epigastric ventral hernia and periumbilical fat containing hernia. In terms of previous GI work-up, 07/23/18 she underwent EGD/COlonoscopy. EGD revealed LA Grade B reflux esophagitis in the distal esophagus (biopsies c/w reflux changes without intestinal metaplasia), mild antral gastritis, mild duodenitis (h. pylori negative). I advised Omeprazole 40mg for 8 weeks followed by daily Ranitidine 150mg once daily. Colonoscopy revealed a diminutive cecal polyp (hyperplastic), retained pockets of opaque liquid stool requiring aggressive washing and suctioning. A repeat exam in 5 years was advised given the bowel prep. Prior to this she had a colonoscopy that reveaed copious amopunts of retained liquid stool and was otherwise normal. EGD 12/10/09 A modest sliding hiatal hernia and small erosion at the GE Junction and body of stomach along with normal duodenum. - Past Medical History Cardio/Vascular: Yes: CAD, CHF, HTN, Hyperlipdemia Pulmonary: Yes: Asthma Renal/: Yes: Renal Failure, Hemodialysis, Renal Calculi (per patient) ...: No Endocrine: Yes: Diabetes Mellitus (DM II on insulin pump) Additional Medical History: Macular degeneration, Diabetic retinopathy - Past Surgical History Past Surgical History: Yes: AV Fistula/Graft, CABG - Alcohol/Substance Use Hx Alcohol Use: Yes (Occasional beer) History of Substance Use: reports: None - Smoking History Smoking history: Never smoked Have you smoked in the past 12 months: No If you are a former smoker, when did you quit?: 1995 - Social History Usual Living Arrangement: Alone ADL: Independent 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 Place of : [facility] History of Recent Travel: No Home Medications - Allergies Allergies/Adverse Reactions: Allergies Allergy/AdvReac Type Severity Reaction Status Date / Time theophylline Allergy Severe THROAT Verified 02/11/18 21:47 SWELLING BEE'S Allergy THROAT Uncoded 09/12/17 06:55 SWELLING TROPICAL FRUITS Allergy THROAT Uncoded 09/12/17 06:55 SWELLING - Home Medications Home Medications: Ambulatory Orders Amlodipine Besylate 10 mg PO DAILY 02/11/18 Aspirin [Ecotrin] 81 mg PO DAILY 02/11/18 Bismuth Subsalicylate [Pepto-Bismol -] 262 mg PO ASDIR 02/11/18 Docusate Sodium [Colace -] 100 mg PO BID 02/11/18 Furosemide 80 mg PO DAILY 02/11/18 Hydroxyzine HCl 10 mg PO HS 02/11/18 Labetalol HCl 300 mg PO BID 02/11/18 Sevelamer Carbonate 800 mg PO TID 02/11/18 Family Disease History - Family Disease History Family Disease History: Other: Father (: 93: heart problems), Mother ( 70: heart problems), Son (1, healthy), Daughter (1, healthy, 1 at childbirth) Other Family History: 7 siblings. No family history of colorectal cancer Review of Systems - Review of Systems Constitutional: reports: Unintentional Wgt. Loss. denies: Fever Cardiovascular: denies: Chest Pain Respiratory: denies: SOB Gastrointestinal: reports: Abdominal Pain, Nausea, Vomiting. denies: Bloating, Constipation, Diarrhea, Dysphagia, Melena Physical Exam-GI Vital Signs: Vital Signs Temperature 98.2 F 02/13/18 10:30 Pulse Rate 58 L 02/13/18 12:10 Respiratory Rate 18 02/13/18 12:10 Blood Pressure 106/60 02/13/18 12:10 O2 Sat by Pulse Oximetry (%) 100 02/13/18 09:00 Constitutional: No: Calm Eyes: No: Sclera Icterus Cardiovascular: Yes: Regular Rate and Rhythm. No: Murmur Respiratory: Yes: CTA Bilaterally Gastrointestinal Inspection: Yes: Hernia (epigastric non-tender ventral hernia) , Scars (sternotomy scars in upper abdomen). No: Distention ...Auscultate: Yes: Normoactive Bowel Sounds ...Palpate: No: Tenderness ...Percussion: No: Tympanitic Extremities: Yes: Other (Left arm AV fistula) Edema: No (No LE edema) Labs: CBC, BMP 02/13/18 10:40 02/13/18 11:50 INR, PTT INR 0.95 (0.83-1.09) 02/11/18 22:40 Hepatic Panel Total Bilirubin 0.5 mg/dL (0.2-1.0) 02/11/18 22:40 AST 77 U/L (15-37) H 02/11/18 22:40 ALT 58 U/L (12-78) 02/11/18 22:40 Alkaline Phosphatase 110 U/L (45-117) 02/11/18 22:40 Albumin 3.5 g/dl (3.4-5.0) 02/11/18 22:40 Imaging - Results Cat Scan: Report Reviewed, Image Reviewed Problem List - Problems (1) Epigastric pain Assessment/Plan: Related to meals: ? recurrence of reflux esophagitis, esophageal candidiasis, PUD in setting of daily ASA therapy or alternate pathology With LFTs mildly elevated, ? biliary etiology ? if component of diabetic gastroparesis Advise: Abdominal US Agree with check hepatitis serologies Started Protonix 40mg once daily PO today Discussed upper endoscopy for further intraluminal evaluation. Discussed potential risks of the procedure like but not limited to bleeding, perforation requiring surgery to repair, infection, sedation meedication effects all of which could be potentially life threatening. She has agreed to the procedure. If unrevealing, then further IV contrast imaging of the upper abdomen to asses pancreas and upper abdominal vasculature NPO after midnight Code(s): R10.13 - EPIGASTRIC PAIN
[2018-02-13] MEDS: PANTOPRAZOLE 40 MG TABLET (FP) PO SCH (14:58)
[2018-02-13] MEDS ORDERED: ONDANSETRON *ODT* 4 MG TABLET SL ONE (22:00)
[2018-02-13] MEDS ORDERED: MAG HYDROX/AL HYDROX/SIMETH 30 ML UNIT-DOSE CUP PO ONE (22:00)
[2018-02-13] MEDS: hydrOXYzine HCL 10 MG TABLET PO SCH (22:07)
--- NOTE | 2018-02-13 23:43 | PN ---
Progress Note (short form) - Note Progress Note: patient seen during HD comfortable discussed possibility of surgical correction of ventral hernia patient states is willing to undergo surgery Surgeon has discussed this with her earlier today Vital Signs Period Temp Pulse Resp BP Sys/Griffith Pulse Ox Last 24 Hr 97.2 F-98.5 F 54-73 18-20 97-133/50-90 97-100 neck supple heart s1/S2 lungs clear bilat ( ant and lateral) abd soft nontenderness CBC, BMP 02/13/18 10:40 02/13/18 11:50 Microbiology 02/12/18 00:30 Urine - Urine - Catheterized Urine Culture - Final Active Medications Amlodipine Besylate (Norvasc -) 10 mg PO DAILY [facility] Last Admin: 02/13/18 09:27 Dose: 10 mg Aspirin (Ecotrin -) 81 mg PO DAILY [facility] Last Admin: 02/13/18 09:27 Dose: 81 mg Docusate Sodium (Colace -) 100 mg PO BID [facility] Last Admin: 02/13/18 22:04 Dose: 100 mg Furosemide (Lasix -) 80 mg PO DAILY [facility] Last Admin: 02/13/18 09:27 Dose: 80 mg Hydroxyzine HCl (Atarax -) 10 mg PO HS [facility] Last Admin: 02/13/18 22:07 Dose: 10 mg Labetalol HCl (Normodyne -) 300 mg PO BID [facility] Last Admin: 02/13/18 22:04 Dose: 300 mg Pantoprazole Sodium (Protonix -) 40 mg PO DAILY [facility] Last Admin: 02/13/18 14:58 Dose: 40 mg Sevelamer Carbonate (Renvela -) 800 mg PO TIDCM [facility] Last Admin: 02/13/18 17:09 Dose: 800 mg # abdominal pain GI consult Patient known to Dr Norton Surgical consult appreciated - now on diet Would need cardiac clearance for OR # CKD5 on HD TTS nephrology consult -- arrange for HD #CAD s/p CABG # HTN continue medication Problem List - Problems (1) Abdominal pain Code(s): R10.9 - UNSPECIFIED ABDOMINAL PAIN (2) Hernia Code(s): K46.9 - UNSPECIFIED ABDOMINAL HERNIA WITHOUT OBSTRUCTION OR GANGRENE (3) Ventral hernia without obstruction or gangrene Code(s): K43.9 - VENTRAL HERNIA WITHOUT OBSTRUCTION OR GANGRENE (4) CKD (chronic kidney disease) stage V requiring chronic dialysis Code(s): N18.6 - END STAGE RENAL DISEASE; Z99.2 - DEPENDENCE ON RENAL DIALYSIS (5) Diabetes mellitus, insulin dependent (IDDM), uncontrolled Code(s): E10.65 - TYPE 1 DIABETES MELLITUS WITH HYPERGLYCEMIA (6) HTN (hypertension) Code(s): I10 - ESSENTIAL (PRIMARY) HYPERTENSION (7) Obesity Code(s): E66.9 - OBESITY, UNSPECIFIED (8) S/P CABG (coronary artery bypass graft) Code(s): Z95.1 - PRESENCE OF AORTOCORONARY BYPASS GRAFT
[2018-02-14 06:06] LABS: HBSAG SCREEN Negative (Negative); HEP B CORE AB, TOT Negative (Negative)
--- NOTE | 2018-02-14 08:36 | PN ---
Progress Note (short form) - Note Progress Note: EGD complete. Report left in procedural section of physical chart and to be scanned into [facility]. Problem List - Problems (1) Epigastric pain Code(s): R10.13 - EPIGASTRIC PAIN
[2018-02-14] MEDS: amLODIPine BESYLATE 10 MG TABLET (FP) PO SCH (09:55)
[2018-02-14] MEDS: FUROSEMIDE 40 MG TABLET (FP) PO SCH (09:56)
[2018-02-14] MEDS: ASPIRIN COATED 81 MG TABLET.EC PO SCH (09:56)
[2018-02-14] MEDS: LABETALOL HCL 100 MG TABLET (FP) PO SCH ×2 (09:56→22:47)
[2018-02-14] MEDS: PANTOPRAZOLE 40 MG TABLET (FP) PO SCH (09:56)
[2018-02-14] MEDS: DOCUSATE SODIUM 100 MG CAPSULE (FP) PO SCH ×2 (09:56→22:47)
[2018-02-14] MEDS: SEVELAMER CARBONATE 800 MG TAB (FP) PO SCH ×3 (09:56→17:10)
[2018-02-14] MEDS ORDERED: SODIUM CHLORIDE 250 ML IV PRN (10:05)
--- NOTE | 2018-02-14 13:00 | PN ---
Progress Note, Physician History of Present Illness: Pt seen and examined at bedside. She is awake and alert. She denies shortness of breath. - Current Medication List Current Medications: Active Medications Amlodipine Besylate (Norvasc -) 10 mg PO DAILY [facility] Last Admin: 02/14/18 09:55 Dose: 10 mg Aspirin (Ecotrin -) 81 mg PO DAILY [facility] Last Admin: 02/14/18 09:56 Dose: 81 mg Docusate Sodium (Colace -) 100 mg PO BID [facility] Last Admin: 02/14/18 09:56 Dose: 100 mg Furosemide (Lasix -) 80 mg PO DAILY [facility] Last Admin: 02/14/18 09:56 Dose: 80 mg Hydroxyzine HCl (Atarax -) 10 mg PO HS [facility] Last Admin: 02/13/18 22:07 Dose: 10 mg Labetalol HCl (Normodyne -) 300 mg PO BID [facility] Last Admin: 02/14/18 09:56 Dose: 300 mg Pantoprazole Sodium (Protonix -) 40 mg PO DAILY [facility] Last Admin: 02/14/18 09:56 Dose: 40 mg Sevelamer Carbonate (Renvela -) 800 mg PO TIDCM [facility] Last Admin: 02/14/18 12:29 Dose: 800 mg - Objective Vital Signs: Vital Signs Temperature 97.6 F 02/14/18 10:24 Pulse Rate 60 02/14/18 10:24 Respiratory Rate 20 02/14/18 10:24 Blood Pressure 132/68 02/14/18 10:24 O2 Sat by Pulse Oximetry (%) 97 02/14/18 10:24 Constitutional: Yes: Calm Eyes: Yes: Conjunctiva Clear HENT: Yes: Atraumatic Neck: Yes: Supple Cardiovascular: Yes: S1, S2 Respiratory: Yes: CTA Bilaterally Gastrointestinal: Yes: Soft, Hernia Genitourinary: Yes: WNL Musculoskeletal: Yes: WNL Edema: No Neurological: Yes: Oriented Psychiatric: Yes: Oriented Labs: CBC, BMP 02/13/18 10:40 02/13/18 11:50 INR, PTT INR 0.95 (0.83-1.09) 02/11/18 22:40 Problem List - Problems (1) Abdominal pain Code(s): R10.9 - UNSPECIFIED ABDOMINAL PAIN (2) ESRD (end stage renal disease) Code(s): N18.6 - END STAGE RENAL DISEASE Assessment/Plan Current Medications Generic Name Dose Route Start Last Admin Trade Name Sav PRN Reason Stop Dose Admin Amlodipine Besylate 10 mg 02/12/18 10:00 02/14/18 09:55 Norvasc - PO 10 mg DAILY [facility] Administration Aspirin 81 mg 02/12/18 10:00 02/14/18 09:56 Ecotrin - PO 81 mg DAILY [facility] Administration Docusate Sodium 100 mg 02/12/18 10:00 02/14/18 09:56 Colace - PO 100 mg BID [facility] Administration Furosemide 80 mg 02/12/18 10:00 02/14/18 09:56 Lasix - PO 80 mg DAILY [facility] Administration Hydroxyzine HCl 10 mg 02/12/18 22:00 02/13/18 22:07 Atarax - PO 10 mg HS [facility] Administration Labetalol HCl 300 mg 02/12/18 10:00 02/14/18 09:56 Normodyne - PO 300 mg BID [facility] Administration Pantoprazole Sodium 40 mg 02/13/18 11:15 02/14/18 09:56 Protonix - PO 40 mg DAILY [facility] Administration Sevelamer Carbonate 800 mg 02/12/18 12:00 02/14/18 12:29 Renvela - PO 800 mg TIDCM [facility] Administration Impression 1. ESRD 2. DM 3. HTN 4. abdominal pain 5. CHF 6. asthma Plan - HD in am - follow up echo - pt tolerating diet - denies abd pain - renal diet - HD: 4 hrs, opti 180, bfr 500, dw 111 kg, 2 k bath, heparin 3000 bolus
--- NOTE | 2018-02-14 13:29 | CON.CARD ---
Consult Consult Specialty:: Cardiology Reason for Consultation:: preop clearence - History of Present Illness History of Present Illness: The patient is a 57 year old female accompanied with her daughter, with a past medical history of CABG (s/p double bypass), HTN, HLD, CAD, CHF, diabetes, asthma, kidney stones, and ESRD (dialysis on Monday,, Monday), who presents to the emergency department for evaluation of abdominal pain. The patient reports generalized weakness and worsening left lower quadrant abdominal pain since yesterday morning, worse today at 5pm. She describes the abdominal pain as epigastric, and waxing and waning in nature. Patient reports acute onset of nausea with bilious emesis at 5pm today. She reports associated decrease in appetite, subjective fever, chills, and chronic dysuria. Patient also reports pleuritic chest pain, but denies shortness of breath. She notes she felt weak after her dialysis on Monday. As per daughter at bedside, the patient has had 2 kidney stones in the past 2 months, and notes the patient passed only 1. Pt denies taking any medication for the aforementioned pain, but reports taking aspirin daily. The patient shortness of breath, headache, and dizziness. Denies diarrhea, constipation, hematuria, and urinary urgency/frequency. Allergies: Theophylline, bees, tropical fruits Social History: No reported alcohol, cigarette, or drug use. Surgical History: CABG x3 Vessels (2010), LLA fistula, tubal ligation PCP: Dr. Glass [facility] C. Cath [place] 3VD Pulm HTN 50 mmHg, V wave 40 mmHg PCW 20 mmHg 2010 CABG 2 V SCHUSTER LAD, SVG to RCA 2010 Dr. Daniel Alejandre CHF diastolic 2010 Admission to [facility]. C.Cath not done due to CRI DM 1994 ESRD on HD 2014 HHD HTN Hyperlipidemia Moderate to severe MR 2011 Morbid obesity - History Source History Provided By: Patient, Medical Record - Past Medical History Cardio/Vascular: Yes: CAD, CHF, HTN, Hyperlipdemia Pulmonary: Yes: Asthma Renal/: Yes: Renal Failure, Hemodialysis, Renal Calculi (per patient) ...: No Endocrine: Yes: Diabetes Mellitus (DM II on insulin pump) Additional Medical History: Macular degeneration, Diabetic retinopathy - Past Surgical History Past Surgical History: Yes: AV Fistula/Graft, CABG - Alcohol/Substance Use Hx Alcohol Use: Yes (Occasional beer) History of Substance Use: reports: None - Smoking History Smoking history: Never smoked Have you smoked in the past 12 months: No If you are a former smoker, when did you quit?: 1995 - Social History Usual Living Arrangement: Alone ADL: Independent 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 History of Recent Travel: No Home Medications - Allergies Allergies/Adverse Reactions: Allergies Allergy/AdvReac Type Severity Reaction Status Date / Time theophylline Allergy Severe THROAT Verified 02/11/18 21:47 SWELLING BEE'S Allergy THROAT Uncoded 09/12/17 06:55 SWELLING TROPICAL FRUITS Allergy THROAT Uncoded 09/12/17 06:55 SWELLING - Home Medications Home Medications: Ambulatory Orders Amlodipine Besylate 10 mg PO DAILY 02/11/18 Aspirin [Ecotrin] 81 mg PO DAILY 02/11/18 Bismuth Subsalicylate [Pepto-Bismol -] 262 mg PO ASDIR 02/11/18 Docusate Sodium [Colace -] 100 mg PO BID 02/11/18 Furosemide 80 mg PO DAILY 02/11/18 Hydroxyzine HCl 10 mg PO HS 02/11/18 Labetalol HCl 300 mg PO BID 02/11/18 Sevelamer Carbonate 800 mg PO TID 02/11/18 Family Disease History - Family Disease History Family Disease History: Other: Father (: 93: heart problems), Mother ( 70: heart problems), Son (1, healthy), Daughter (1, healthy, 1 at childbirth) Other Family History: 7 siblings. No family history of colorectal cancer Review of Systems - Review of Systems Constitutional: reports: No Symptoms Eyes: reports: No Symptoms HENT: reports: No Symptoms Neck: reports: No Symptoms Cardiovascular: reports: No Symptoms Gastrointestinal: reports: Abdominal Pain Genitourinary: reports: No Symptoms Breasts: reports: No Symptoms Reported Musculoskeletal: reports: No Symptoms Integumentary: reports: No Symptoms Neurological: reports: No Symptoms Endocrine: reports: No Symptoms Hematology/Lymphatic: reports: No Symptoms Psychiatric: reports: No Symptoms Vital Signs: Vital Signs Temperature 97.6 F 02/14/18 10:24 Pulse Rate 60 02/14/18 10:24 Respiratory Rate 20 02/14/18 10:24 Blood Pressure 132/68 02/14/18 10:24 O2 Sat by Pulse Oximetry (%) 97 02/14/18 10:24 Constitutional: Yes: Well Nourished, No Distress, Calm Eyes: Yes: WNL, Conjunctiva Clear, EOM Intact HENT: Yes: WNL, Atraumatic, Normocephalic Neck: Yes: WNL, Supple, Trachea Midline Respiratory: Yes: WNL, Regular, CTA Bilaterally Gastrointestinal: Yes: WNL, Normal Bowel Sounds Renal/: Yes: WNL Cardiovascular: Yes: WNL, Regular Rate and Rhythm Musculoskeletal: Yes: WNL Extremities: Yes: WNL Integumentary: Yes: WNL Neurological: Yes: WNL, Alert, Oriented ...Motor Strength: WNL Psychiatric: Yes: WNL, Alert, Oriented - Other Data Labs, Other Data: CBC, BMP 02/13/18 10:40 02/13/18 11:50 INR, PTT INR 0.95 (0.83-1.09) 02/11/18 22:40 Laboratory Tests 02/11/18 02/11/18 02/11/18 22:40 22:40 22:40 WBC 7.7 RBC 3.80 Hgb 13.0 Hct 38.3 MCV 100.9 H MCH 34.3 H MCHC 34.0 RDW 14.2 Plt Count 238 D MPV 9.0 Absolute Neuts (auto) 6.9 Neutrophils % 89.9 H D Lymphocytes % 3.0 L D Monocytes % 5.9 Eosinophils % 0.7 Basophils % 0.5 Nucleated RBC % 0 PT with INR INR Sodium 137 Potassium 4.3 Chloride 99 Carbon Dioxide 28 Anion Gap 10 BUN 43 H Creatinine 7.3 H Creat Clearance w eGFR 5.74 Random Glucose 189 H Calcium 8.7 Total Bilirubin 0.5 AST 77 H ALT 58 Alkaline Phosphatase 110 Creatine Kinase 104 Troponin I < 0.02 Total Protein 7.0 Albumin 3.5 Total Amylase 53 Lipase 136 Urine Color Urine Appearance Urine pH Ur Specific [place] Urine Protein Urine Glucose (UA) Urine Ketones Urine Blood Urine Nitrite Urine Bilirubin Urine Urobilinogen Ur Leukocyte Esterase Urine WBC (Auto) Urine RBC (Auto) Ur Epithelial Cells Hyaline Casts Urine Mucus Hepatitis A Ab Total Hep Bs Antigen Hep Bs Antibody Hep B Core Total Ab Hep C Ab Diagnostic Liver Fibrosis Interp 02/11/18 02/12/18 02/13/18 22:40 00:30 10:40 WBC 6.3 RBC 3.62 Hgb 11.8 Hct 36.7 MCV 101.5 H MCH 32.5 MCHC 32.1 RDW 14.2 Plt Count 237 MPV 9.7 Absolute Neuts (auto) Neutrophils % Lymphocytes % Monocytes % Eosinophils % Basophils % Nucleated RBC % PT with INR 10.70 INR 0.95 Sodium Potassium Chloride Carbon Dioxide Anion Gap BUN Creatinine Creat Clearance w eGFR Random Glucose Calcium Total Bilirubin AST ALT Alkaline Phosphatase Creatine Kinase Troponin I Total Protein Albumin Total Amylase Lipase Urine Color Yellow Urine Appearance Cloudy Urine pH 5.0 Ur Specific [place] 1.016 Urine Protein 3+ H Urine Glucose (UA) 1+ H Urine Ketones Negative Urine Blood 1+ H Urine Nitrite Negative Urine Bilirubin Negative Urine Urobilinogen Negative Ur Leukocyte Esterase Trace Urine WBC (Auto) 40 Urine RBC (Auto) 6 Ur Epithelial Cells Moderate Hyaline Casts 3 Urine Mucus Rare Hepatitis A Ab Total Hep Bs Antigen Hep Bs Antibody Hep B Core Total Ab Hep C Ab Diagnostic Liver Fibrosis Interp 02/13/18 02/13/18 02/13/18 10:40 10:40 11:50 WBC RBC Hgb Hct MCV MCH MCHC RDW Plt Count MPV Absolute Neuts (auto) Neutrophils % Lymphocytes % Monocytes % Eosinophils % Basophils % Nucleated RBC % PT with INR INR Sodium 134 L Potassium 4.7 Chloride 99 Carbon Dioxide 23 Anion Gap 12 BUN 63 H Creatinine 9.1 H* Creat Clearance w eGFR 4.45 Random Glucose 229 H Calcium 8.8 Total Bilirubin AST ALT Alkaline Phosphatase Creatine Kinase Troponin I Total Protein Albumin Total Amylase Lipase Urine Color Urine Appearance Urine pH Ur Specific [place] Urine Protein Urine Glucose (UA) Urine Ketones Urine Blood Urine Nitrite Urine Bilirubin Urine Urobilinogen Ur Leukocyte Esterase Urine WBC (Auto) Urine RBC (Auto) Ur Epithelial Cells Hyaline Casts Urine Mucus Hepatitis A Ab Total Negative Hep Bs Antigen Negative Hep Bs Antibody Reactive Hep B Core Total Ab Negative Hep C Ab Diagnostic <0.1 Liver Fibrosis Interp Imaging - Results Chest X-ray: Image Reviewed (no i/e) EKG: Image Reviewed (sr lvh) Problem List - Problems (1) Abdominal pain Code(s): R10.9 - UNSPECIFIED ABDOMINAL PAIN (2) Epigastric pain Code(s): R10.13 - EPIGASTRIC PAIN (3) Hernia Code(s): K46.9 - UNSPECIFIED ABDOMINAL HERNIA WITHOUT OBSTRUCTION OR GANGRENE (4) Ventral hernia without obstruction or gangrene Code(s): K43.9 - VENTRAL HERNIA WITHOUT OBSTRUCTION OR GANGRENE (5) CKD (chronic kidney disease) stage V requiring chronic dialysis Code(s): N18.6 - END STAGE RENAL DISEASE; Z99.2 - DEPENDENCE ON RENAL DIALYSIS (6) Diabetes mellitus, insulin dependent (IDDM), uncontrolled Code(s): E10.65 - TYPE 1 DIABETES MELLITUS WITH HYPERGLYCEMIA (7) ESRD (end stage renal disease) Code(s): N18.6 - END STAGE RENAL DISEASE (8) Elevated glucose Code(s): R73.09 - OTHER ABNORMAL GLUCOSE (9) HTN (hypertension) Code(s): I10 - ESSENTIAL (PRIMARY) HYPERTENSION (10) Hydroureteronephrosis Code(s): N13.30 - UNSPECIFIED HYDRONEPHROSIS (11) Hypokalemia Code(s): E87.6 - HYPOKALEMIA (12) Hyponatremia Code(s): E87.1 - HYPO-OSMOLALITY AND HYPONATREMIA (13) Obesity Code(s): E66.9 - OBESITY, UNSPECIFIED (14) Renal colic on right side Code(s): N23 - UNSPECIFIED RENAL COLIC (15) Renal failure Code(s): N19 - UNSPECIFIED KIDNEY FAILURE (16) Right flank pain Code(s): R10.9 - UNSPECIFIED ABDOMINAL PAIN (17) S/P CABG (coronary artery bypass graft) Code(s): Z95.1 - PRESENCE OF AORTOCORONARY BYPASS GRAFT (18) Weakness Code(s): R53.1 - WEAKNESS Assessment/Plan Ventral hernia awaiting OR C. Cath [place] 3VD Pulm HTN 50 mmHg, V wave 40 mmHg PCW 20 mmHg 2010 CABG 2 V SCHUSTER LAD, SVG to RCA 2010 Dr. Daniel Alejandre CHF diastolic 2010 Admission to [facility]. C.Cath not done due to CRI DM 1994 ESRD on HD 2014 HHD HTN Hyperlipidemia Moderate to severe MR 2011 Morbid obesity ECHO today nl ef mild mr, nl rvsp ekg unchanged Plan; nl echo and ekg no symptoms goog exercise tolearnce in the excess of 4.6 mets Patient is low risk for cardiovascular complications during hernia surgery and cleared for the procedure.
--- NOTE | 2018-02-14 13:40 | ECHO ---
Name: PATRICIA ANDERSON Exam:Adult Echocardiogram Study Date: 02/14/2018 11:44 AM Age: 57 yrs Reason For Study: EF Height: 70 in Weight: 244 lb BSA: 2.3 m2 MMode/2D Measurements & Calculations IVSd: 1.4 cm Ao root diam: 3.3 cm LVIDd: 4.3 cm LA dimension: 4.8 cm LVIDs: 2.8 cm LVPWd: 1.2 cm EDV(Teich): 85.2 ml TAPSE: 1.4 cm ESV(Teich): 28.5 ml RV S Brandon: 6.4 cm/sec Doppler Measurements & Calculations MV E max brandon: 64.2 cm/sec Ao V2 max: 136.5 cm/sec MV A max brandon: 70.1 cm/sec Ao max P.5 mmHg MV E/A: 0.92 MV dec time: 0.27 sec LV V1 max P.5 mmHg TR max brandon: 205.0 cm/sec LV V1 max: 106.1 cm/sec TR max P.9 mmHg PI end-d brandon: 121.6 cm/sec Med Peak E' Brandon: 3.7 cm/sec Med E/e': 17.4 Lat Peak E' Brandon: 11.5 cm/sec Lat E/e': 5.6 Procedure A two-dimensional transthoracic echocardiogram with color flow and Doppler was performed. Left Ventricle The left ventricular size, thickness and function are normal. The left ventricular ejection fraction is normal. Left Ventricular Filling pattern is normal for age. Septal motion is consistent with post-ope rative state. Right Ventricle The right ventricle is not well visualized. Atria The left atrium is moderately dilated. The right atrium is moderately dilated. Mitral Valve There is mild mitral valve thickening. There is no mitral valve stenosis. There is mild mitral regurg itation. Tricuspid Valve There is mild tricuspid valve thickening. There is no tricuspid stenosis. There is mild tricuspid regurgitation. Right ventricular systolic pressure is normal. Aortic Valve The aortic valve is normal in structure and function. There is mild aortic valve thickening. No hemodynamically significant valvular aortic stenosis. No aortic regurgitation is present. Pulmonic Valve The pulmonic valve is not well visualized. There is no pulmonic valvular stenosis. Moderate pulmonic valvular regurgitation. Great Vessels The aortic root is normal size. Pericardium/Pleura There is no pericardial effusion. Interpretation Summary The left ventricular size, thickness and function are normal The left ventricular ejection fraction is normal. Septal motion is consistent with post-operative state. The left atrium is moderately dilated. The right atrium is moderately dilated. Right ventricular systolic pressure is normal. There is mild tricuspid regurgitation. There is mild mitral regurgitation. Left Ventricular Filling pattern is normal for age. MD Jono Sheppard 02/14/2018 01:40 PM
[2018-02-14 14:49] VITALS: BMI 35.6
--- NOTE | 2018-02-14 21:14 | PN ---
Progress Note (short form) - Note Progress Note: patient seen during HD comfortable patient elected to have surgical repair appreciate cardiology evaluation for clearance Vital Signs Period Temp Pulse Resp BP Sys/Griffith Pulse Ox Last 24 Hr 97.2 F-98.5 F 54-73 18-20 97-133/50-90 97-100 neck supple heart s1/S2 lungs clear bilat ( ant and lateral) abd soft nontenderness hx per Cardio note C. Cath [place] 3VD Pulm HTN 50 mmHg, V wave 40 mmHg PCW 20 mmHg 2010 CABG 2 V SCHUSTER LAD, SVG to RCA 2010 Dr. Daniel Alejandre CHF diastolic 2010 Admission to [facility]. C.Cath not done due to CRI DM 1994 ESRD on HD 2014 HHD HTN Hyperlipidemia Moderate to severe MR 2011 Morbid obesity CBC, BMP 02/13/18 10:40 02/13/18 11:50 Microbiology 02/12/18 00:30 Urine - Urine - Catheterized Urine Culture - Final Active Medications Amlodipine Besylate (Norvasc -) 10 mg PO DAILY [facility] Last Admin: 02/14/18 09:55 Dose: 10 mg Aspirin (Ecotrin -) 81 mg PO DAILY [facility] Last Admin: 02/14/18 09:56 Dose: 81 mg Docusate Sodium (Colace -) 100 mg PO BID [facility] Last Admin: 02/14/18 09:56 Dose: 100 mg Furosemide (Lasix -) 80 mg PO DAILY [facility] Last Admin: 02/14/18 09:56 Dose: 80 mg Heparin Sodium (Porcine) (Heparin -) 3,000 unit IVPUSH ONCE ONE Stop: 02/15/18 13:01 Hydroxyzine HCl (Atarax -) 10 mg PO HS [facility] Last Admin: 02/13/18 22:07 Dose: 10 mg Sodium Chloride (Normal Saline -) 250 mls @ 3,000 mls/hr IV PRN PRN PRN Reason: Hypotension during Dialysis Stop: 02/15/18 13:00 Labetalol HCl (Normodyne -) 300 mg PO BID [facility] Last Admin: 02/14/18 09:56 Dose: 300 mg Pantoprazole Sodium (Protonix -) 40 mg PO DAILY [facility] Last Admin: 02/14/18 09:56 Dose: 40 mg Sevelamer Carbonate (Renvela -) 800 mg PO TIDCM [facility] Last Admin: 02/14/18 17:10 Dose: 800 mg # abdominal pain GI consult Patient known to Dr Norton Surgical consult appreciated - now on diet Cardiology evaluation done - cleared for surgery # CKD5 on HD TTS nephrology consult -- arrange for HD #CAD s/p CABG C. Cath [place] 3VD Pulm HTN 50 mmHg, V wave 40 mmHg PCW 20 mmHg 2010 CABG 2 V SCHUSTER LAD, SVG to RCA 2010 Dr. Daniel Alejandre # HTN continue medication Problem List - Problems (1) Abdominal pain Code(s): R10.9 - UNSPECIFIED ABDOMINAL PAIN (2) Hernia Code(s): K46.9 - UNSPECIFIED ABDOMINAL HERNIA WITHOUT OBSTRUCTION OR GANGRENE (3) Ventral hernia without obstruction or gangrene Code(s): K43.9 - VENTRAL HERNIA WITHOUT OBSTRUCTION OR GANGRENE (4) CKD (chronic kidney disease) stage V requiring chronic dialysis Code(s): N18.6 - END STAGE RENAL DISEASE; Z99.2 - DEPENDENCE ON RENAL DIALYSIS (5) Diabetes mellitus, insulin dependent (IDDM), uncontrolled Code(s): E10.65 - TYPE 1 DIABETES MELLITUS WITH HYPERGLYCEMIA (6) HTN (hypertension) Code(s): I10 - ESSENTIAL (PRIMARY) HYPERTENSION (7) Obesity Code(s): E66.9 - OBESITY, UNSPECIFIED (8) S/P CABG (coronary artery bypass graft) Code(s): Z95.1 - PRESENCE OF AORTOCORONARY BYPASS GRAFT
[2018-02-14] MEDS: hydrOXYzine HCL 10 MG TABLET PO SCH (22:47)
[2018-02-15 07:15] LABS: BASO % 1.1 % (0-2.0); EOS % 3.7 % (0-4.5); HEMATOCRIT 35.5 % (32.4-45.2); HEMOGLOBIN 11.6 GM/dL (10.7-15.3); LYMPH % 28.4 % (8-40); MCH 33.2 pg (25.7-33.7); MCHC 32.8 g/dl (32.0-36.0); MEAN CELL VOLUME 101.3 fl (80-96); MEAN PLT VOLUME 8.9 fl (7.5-11.1); MONO % 8.5 % (3.8-10.2); NEUT % 58.3 % (42.8-82.8); PLATELET COUNT 246 K/MM3 (134-434); RDW 13.9 % (11.6-15.6); WHITE BLOOD COUNT 4.8 K/mm3 (4.0-10.0)
[2018-02-15 07:21] LABS: INR 0.94 (0.83-1.09); PROTHROMBIN TIME (PATIENT) 10.6 SEC (9.7-13.0)
[2018-02-15] MEDS: SEVELAMER CARBONATE 800 MG TAB (FP) PO SCH ×2 (07:50→13:54)
[2018-02-15 08:14] LABS: ANION GAP 11 MMOL/L (8-16); BLOOD UREA NITROGEN 47 mg/dL (7-18); CALCIUM 8.4 mg/dL (8.5-10.1); CHLORIDE 97 mmol/L (98-107); CO2 30 mmol/L (21-32); GLUCOSE,RANDOM 190 mg/dL (74-106); POTASSIUM 5.1 mmol/L (3.5-5.1); SODIUM 138 mmol/L (136-145)
[2018-02-15 08:19] LABS: ALK PHOS 65 U/L (45-117); BILIRUBIN,TOTAL 0.4 mg/dL (0.2-1.0); SGOT/AST 13 U/L (15-37); SGPT/ALT 23 U/L (13-61)
[2018-02-15 08:36] LABS: CREATININE 7.9 mg/dL (0.55-1.02)
[2018-02-15] MEDS ORDERED: HEPARIN NA (PORCINE) 5,000 UNITS/ML 1ML VIAL IVPUSH ONE (10:15)
--- NOTE | 2018-02-15 10:17 | PN ---
Progress Note, Physician Chief Complaint: Pt is undergoin hemodialysis (HD); she has not chest pain, palpitations, abdominal pain, or dyspnea. History of Present Illness: 56 yo black woman, with PMH obesity, asthma, CAD s/p CABG 2010 (since the CABG , she has had an uppere abdominal hernia that is intermitently uncomfortable, diastolic CHF, diabetes ( insulin pump), HTN, hyperlipidemia, and ESRD-- on HD ., ., Sat, who presents to the ED with abdominal pain that began about a week ago, associated with one episode of vomiting which brought her to ER. She describes the pain as 10/10 in severity in the epigastric area associated with her hernia. She had CABG in 2010 and since that time has had an upper abdominal hernia that is intermittently uncomfortable. On exam she is not in severe pain. She has previously been assessed by surgeons and recommended bariatric surgery. She was adamant that she did not want to have mesh if the hernia was to require repair. She denies any fever, chills, diarrhea, constipation, shortness of breath or chest pain. - Current Medication List Current Medications: Active Medications Amlodipine Besylate (Norvasc -) 10 mg PO DAILY [facility] Last Admin: 02/14/18 09:55 Dose: 10 mg Aspirin (Ecotrin -) 81 mg PO DAILY [facility] Last Admin: 02/14/18 09:56 Dose: 81 mg Docusate Sodium (Colace -) 100 mg PO BID [facility] Last Admin: 02/14/18 22:47 Dose: 100 mg Furosemide (Lasix -) 80 mg PO DAILY [facility] Last Admin: 02/14/18 09:56 Dose: 80 mg Hydroxyzine HCl (Atarax -) 10 mg PO HS [facility] Last Admin: 02/14/18 22:47 Dose: 10 mg Labetalol HCl (Normodyne -) 300 mg PO BID [facility] Last Admin: 02/14/18 22:47 Dose: 300 mg Pantoprazole Sodium (Protonix -) 40 mg PO DAILY [facility] Last Admin: 02/14/18 09:56 Dose: 40 mg Sevelamer Carbonate (Renvela -) 800 mg PO TIDCM [facility] Last Admin: 02/15/18 07:50 Dose: 800 mg - Objective Vital Signs: Vital Signs Temperature 98.2 F 02/15/18 09:15 Pulse Rate 59 L 02/15/18 09:50 Respiratory Rate 18 02/15/18 09:50 Blood Pressure 125/58 02/15/18 09:50 O2 Sat by Pulse Oximetry (%) 95 02/15/18 09:00 Constitutional: Yes: Calm Eyes: Yes: WNL HENT: Yes: WNL Neck: Yes: WNL Cardiovascular: Yes: S1, S2, S4 Respiratory: Yes: WNL Gastrointestinal: Yes: Soft ...Rectal Exam: Yes: Deferred Genitourinary: No: Anuria Musculoskeletal: Yes: Muscle Weakness Extremities: Yes: Cool Edema: No Peripheral Pulses WNL: Yes Integumentary: Yes: Other (Upper extremity AV graft for HD) Neurological: Yes: WNL Psychiatric: Yes: WNL Labs: CBC, BMP 02/15/18 06:25 02/15/18 06:25 INR, PTT INR 0.94 (0.83-1.09) 02/15/18 06:25 Problem List - Problems (1) Abdominal pain Assessment/Plan: Hx GERD, ?ventral and/or hiatal hernias Code(s): R10.9 - UNSPECIFIED ABDOMINAL PAIN (2) CKD (chronic kidney disease) stage V requiring chronic dialysis Code(s): N18.6 - END STAGE RENAL DISEASE; Z99.2 - DEPENDENCE ON RENAL DIALYSIS (3) Diabetes mellitus, insulin dependent (IDDM), uncontrolled Code(s): E10.65 - TYPE 1 DIABETES MELLITUS WITH HYPERGLYCEMIA (4) Elevated glucose Code(s): R73.09 - OTHER ABNORMAL GLUCOSE (5) HTN (hypertension) Code(s): I10 - ESSENTIAL (PRIMARY) HYPERTENSION (6) Hernia Code(s): K46.9 - UNSPECIFIED ABDOMINAL HERNIA WITHOUT OBSTRUCTION OR GANGRENE (7) Obesity Code(s): E66.9 - OBESITY, UNSPECIFIED (8) S/P CABG (coronary artery bypass graft) Code(s): Z95.1 - PRESENCE OF AORTOCORONARY BYPASS GRAFT (9) Hyperlipidemia Assessment/Plan: f/u lipid panel Code(s): E78.5 - HYPERLIPIDEMIA, UNSPECIFIED (10) Diabetes Code(s): E11.9 - TYPE 2 DIABETES MELLITUS WITHOUT COMPLICATIONS
--- NOTE | 2018-02-15 12:09 | DS ---
Physical Examination Vital Signs: Vital Signs Temperature 98.2 F 02/15/18 09:15 Pulse Rate 63 02/15/18 11:50 Respiratory Rate 18 02/15/18 11:50 Blood Pressure 145/62 02/15/18 11:50 O2 Sat by Pulse Oximetry (%) 95 02/15/18 09:00 Constitutional: Yes: Well Nourished, Calm Eyes: Yes: Conjunctiva Clear HENT: Yes: Atraumatic, Normocephalic Neck: Yes: Supple, Trachea Midline Cardiovascular: Yes: Regular Rate and Rhythm Respiratory: Yes: Regular, CTA Bilaterally Gastrointestinal: Yes: Normal Bowel Sounds, Abdomen, Obese ...Rectal Exam: Yes: Deferred Renal/: Yes: WNL Breast(s): Yes: WNL Musculoskeletal: Yes: Muscle Weakness Extremities: Yes: WNL Edema: No Peripheral Pulses WNL: Yes Integumentary: Yes: WNL Neurological: Yes: Alert ...Motor Strength: WNL Psychiatric: Yes: Alert, Oriented Labs: CBC, BMP 02/15/18 06:25 02/15/18 06:25 Discharge Summary Reason For Visit: HERNIA,ABDOMINAL PAIN Current Active Problems Abdominal pain (Acute) Hernia (Acute) Ventral hernia without obstruction or gangrene (Acute) Epigastric pain (Acute) Hospital Course: 57 y/o female admitted for abdominal pain. Hernias noted. Abdominal pain subsided. Pt evaluated in dialysis. Plan to dc home. No surgery at this time. Condition: Improved - Instructions Diet, Activity, Other Instructions: Follow-up: Call Dr. Yao' office at [phone] to make your follow-up appointment. Monday in 1 month. Clinic is held in the [facility] on the first floor of [facility]. Also, see your primary medical doctor within 1-2 weeks. Referrals: Brett Stacy DO [Staff Physician] - Prema Glass MD [Primary Care Provider] - Disposition: HOME - Home Medications Comprehensive Discharge Medication List: Ambulatory Orders Amlodipine Besylate 10 mg PO DAILY 02/11/18 Aspirin [Ecotrin] 81 mg PO DAILY 02/11/18 Bismuth Subsalicylate [Pepto-Bismol -] 262 mg PO ASDIR 02/11/18 Docusate Sodium [Colace -] 100 mg PO BID 02/11/18 Furosemide 80 mg PO DAILY 02/11/18 Hydroxyzine HCl 10 mg PO HS 02/11/18 Labetalol HCl 300 mg PO BID 02/11/18 Sevelamer Carbonate 800 mg PO TID 02/11/18
[2018-02-15] MEDS: amLODIPine BESYLATE 10 MG TABLET (FP) PO SCH (13:54)
[2018-02-15] MEDS: LABETALOL HCL 100 MG TABLET (FP) PO SCH (13:54)
[2018-02-15] MEDS: ASPIRIN COATED 81 MG TABLET.EC PO SCH (13:54)
[2018-02-15] MEDS: DOCUSATE SODIUM 100 MG CAPSULE (FP) PO SCH (13:54)
[2018-02-15] MEDS: PANTOPRAZOLE 40 MG TABLET (FP) PO SCH (13:54)
[2018-02-15] MEDS: FUROSEMIDE 40 MG TABLET (FP) PO SCH (13:54)
--- NOTE | 2018-02-15 14:30 | PN ---
Progress Note, Physician History of Present Illness: Pt seen and examined at bedside. She is tolerating HD. She denies abd pain. - Current Medication List Current Medications: Active Medications Amlodipine Besylate (Norvasc -) 10 mg PO DAILY [facility] Last Admin: 02/15/18 13:54 Dose: 10 mg Aspirin (Ecotrin -) 81 mg PO DAILY [facility] Last Admin: 02/15/18 13:54 Dose: 81 mg Docusate Sodium (Colace -) 100 mg PO BID [facility] Last Admin: 02/15/18 13:54 Dose: 100 mg Furosemide (Lasix -) 80 mg PO DAILY [facility] Last Admin: 02/15/18 13:54 Dose: 80 mg Hydroxyzine HCl (Atarax -) 10 mg PO HS [facility] Last Admin: 02/14/18 22:47 Dose: 10 mg Labetalol HCl (Normodyne -) 300 mg PO BID [facility] Last Admin: 02/15/18 13:54 Dose: 300 mg Pantoprazole Sodium (Protonix -) 40 mg PO DAILY [facility] Last Admin: 02/15/18 13:54 Dose: 40 mg Sevelamer Carbonate (Renvela -) 800 mg PO TIDCM [facility] Last Admin: 02/15/18 13:54 Dose: 800 mg - Objective Vital Signs: Vital Signs Temperature 98.2 F 02/15/18 09:15 Pulse Rate 60 02/15/18 14:25 Respiratory Rate 18 02/15/18 14:25 Blood Pressure 118/62 02/15/18 14:25 O2 Sat by Pulse Oximetry (%) 95 02/15/18 09:00 Constitutional: Yes: Calm Eyes: Yes: Conjunctiva Clear HENT: Yes: Atraumatic Neck: Yes: Supple Cardiovascular: Yes: S1, S2 Respiratory: Yes: CTA Bilaterally Gastrointestinal: Yes: Soft, Abdomen, Obese, Hernia Genitourinary: Yes: WNL Musculoskeletal: Yes: WNL Edema: No Neurological: Yes: Oriented Psychiatric: Yes: Oriented Labs: CBC, BMP 02/15/18 06:25 02/15/18 06:25 INR, PTT INR 0.94 (0.83-1.09) 02/15/18 06:25 Problem List - Problems (1) Abdominal pain Code(s): R10.9 - UNSPECIFIED ABDOMINAL PAIN (2) ESRD (end stage renal disease) Code(s): N18.6 - END STAGE RENAL DISEASE Assessment/Plan Current Medications Generic Name Dose Route Start Last Admin Trade Name Sav PRN Reason Stop Dose Admin Amlodipine Besylate 10 mg 02/12/18 10:00 02/15/18 13:54 Norvasc - PO 10 mg DAILY [facility] Administration Aspirin 81 mg 02/12/18 10:00 02/15/18 13:54 Ecotrin - PO 81 mg DAILY [facility] Administration Docusate Sodium 100 mg 02/12/18 10:00 02/15/18 13:54 Colace - PO 100 mg BID [facility] Administration Furosemide 80 mg 02/12/18 10:00 02/15/18 13:54 Lasix - PO 80 mg DAILY [facility] Administration Hydroxyzine HCl 10 mg 02/12/18 22:00 02/14/18 22:47 Atarax - PO 10 mg HS [facility] Administration Labetalol HCl 300 mg 02/12/18 10:00 02/15/18 13:54 Normodyne - PO 300 mg BID [facility] Administration Pantoprazole Sodium 40 mg 02/13/18 11:15 02/15/18 13:54 Protonix - PO 40 mg DAILY [facility] Administration Sevelamer Carbonate 800 mg 02/12/18 12:00 02/15/18 13:54 Renvela - PO 800 mg TIDCM [facility] Administration Impression 1. ESRD 2. DM 3. HTN 4. abdominal pain 5. CHF 6. asthma Plan - HD today, pt tolerating - she has HD set up as outpt - will follow with GI and surgery - pt tolerating diet - renal diet - HD: 4 hrs, opti 180, bfr 500, dw 111 kg, 2 k bath, heparin 3000 bolus
[2018-02-15 14:42] VITALS: BP 147/74; PULSE 62; TEMP 97.7
--- NOTE | 2018-02-16 10:58 | PN ---
Progress Note (short form) - Note Progress Note: Called by pathologist Dr. Barrios today: distal esophageal ulcer specimen was lost during processing. Problem List - Problems (1) Epigastric pain Code(s): R10.13 - EPIGASTRIC PAIN
--- NOTE | 2018-02-16 17:19 | PATH ---
Surgical Pathology Report Patient Name: PATRICIA ANDERSON Med. Rec. #: [id number] /Age/Gender: 1960 (Age: 57) / F Account: [id number] Location: [facility] MED/SURG Taken: 02/14/2018 Received: 02/14/2018 Reported: 02/16/2018 Physicians: José Stacy D.O. Specimen(s) Received A: BX ANTRUM B: BX GE JUNCTION C: BX ESOPHAGUS ULCER Clinical History Abdominal pain Postoperative diagnosis: Esophagitis, hiatal hernia, gastritis Final Diagnosis A. ANTRUM, BIOPSY: GASTRIC MUCOSA WITH REACTIVE GASTROPATHY. IMMUNOSTAIN IS NEGATIVE FOR H. PYLORI ORGANISMS. B. GE JUNCTION, BIOPSY: SQUAMOUS MUCOSA SHOWING REFLUX ESOPHAGITIS WITH FOCAL ACUTE INFLAMMATION, SEPARATE INFLAMMATORY AND FIBRINOUS EXUDATE, SUGGESTIVE OF ULCER BED. PAS STAIN IS NEGATIVE FOR FUNGAL HYPHAE. NEGATIVE FOR INTESTINAL METAPLASIA. NO HISTOLOGIC EVIDENCE OF EOSINOPHILIC ESOPHAGITIS. C. ESOPHAGUS ULCER, BIOPSY: NO DIAGNOSIS. TISSUE LOSS IN PROCESSING. This case was discussed with Dr. Fritz Stacy on 02/16/2018. Electronically Signed Malcolm Barrios M.D. Gross Description A. Received in formalin, labeled "biopsy antrum" are 2 pressley, irregular portions of soft tissue measuring 0.3 and 0.4 cm. in greatest dimension. The specimens are submitted in toto in one cassette. B. Received in formalin, labeled "biopsy GE junction" are 2 pressley, irregular portions of soft tissue measuring 0.1 and 0.6 cm. in greatest dimension. The specimens are submitted in toto in one cassette. C. Received in formalin, labeled "biopsy esophageal ulcer" is a pressley, irregular portion of soft tissue measuring 0.6 cm. in greatest dimension. The specimen is submitted in toto in one cassette. /02/14/2018 saudi/02/14/2018
[2018-02-17 14:18] LABS: CHOLESTEROL 139 mg/dL (50-200); HDL CHOLESTEROL 37 mg/dL (40-60); TRIGLYCERIDES 209 mg/dL (0-150)
== END 2018-02-15 14:50 | disposition home or self-care (01) ==
LOC: JER 21:13 → JERBED 02-12 02:25 → J7W 02-12 16:42
PROVIDERS: ADMIT Family Medicine; ATTEND Family Medicine
PROC: 3E033GC Introduction of Other Therapeutic Substance into Peripheral Vein, Percutaneous Approach (ICD-10-PCS; 2018-02-12)
PROC: 0DB68ZX Excision of Stomach, Via Natural or Artificial Opening Endoscopic, Diagnostic (ICD-10-PCS; 2018-02-14)
PROC: 0DB58ZX Excision of Esophagus, Via Natural or Artificial Opening Endoscopic, Diagnostic (ICD-10-PCS; principal; 2018-02-14 08:00)
DX: R10.9 Unspecified abdominal pain (principal); R10.13 Epigastric pain; K43.9 Ventral hernia without obstruction or gangrene; K46.9 Unspecified abdominal hernia without obstruction or gangrene; E11.22 Type 2 diabetes mellitus with diabetic chronic kidney disease; E11.65 Type 2 diabetes mellitus with hyperglycemia; I12.0 Hypertensive chronic kidney disease with stage 5 chronic kidney disease or end stage renal disease; N18.6 End stage renal disease; Z99.2 Dependence on renal dialysis; Z96.41 Presence of insulin pump (external) (internal); I11.0 Hypertensive heart disease with heart failure; E78.5 Hyperlipidemia, unspecified; I25.10 Atherosclerotic heart disease of native coronary artery without angina pectoris; I50.9 Heart failure, unspecified; J45.909 Unspecified asthma, uncomplicated; K29.50 Unspecified chronic gastritis without bleeding; K29.80 Duodenitis without bleeding; K44.9 Diaphragmatic hernia without obstruction or gangrene; K22.10 Ulcer of esophagus without bleeding; K21.0 Gastro-esophageal reflux disease with esophagitis; E66.9 Obesity, unspecified; Z68.35 Body mass index [BMI] 35.0-35.9, adult; N13.30 Unspecified hydronephrosis; E87.6 Hypokalemia; E87.1 Hypo-osmolality and hyponatremia; Z79.82 Long term (current) use of aspirin; Z91.038 Other insect allergy status; Z88.8 Allergy status to other drugs, medicaments and biological substances; Z95.1 Presence of aortocoronary bypass graft; Z87.442 Personal history of urinary calculi
CPT/HCPCS: 36415; 71045-TC-FY; 74176-TC; 76705-TC; 80048; 80053; 80061; 81003; 81015; 82150; 82550; 83036; 83690; 83721; 84484; 85025; 85027; 85610; 86704; 86706; 86708; 86803; 87086; 87340; 88305-TC; 88312-TC; 88342-TC; 93005; 93010; 93306-TC; 96374; 96375; 96376; 99284-25; G0378; J1644; Q0162

== ENCOUNTER 2018-04-17 09:17 | Day surgery (SDC) | payer OTHER ==
[2018-04-17 10:04] VITALS: BMI 34.5
[2018-04-17 11:41] VITALS: TEMP 97.5
[2018-04-17 12:18] VITALS: BP 133/54; PULSE 51
--- NOTE | 2018-04-18 18:56 | PATH ---
Surgical Pathology Report Patient Name: PATRICIA ANDERSON [facility]. Rec. #: [id number] /Age/Gender: 1960 (Age: 57) / F Account: [id number] Location: [facility]-ENDOSCOPY Taken: 04/17/2018 Received: 04/17/2018 Reported: 04/18/2018 Physicians: José Stacy D.O. Specimen(s) Received A: BX ANTRUM B: BX BODY C: BX GE JUNCTION Clinical History Gastroesophageal reflux with esophagitis Postoperative diagnosis: Hiatal hernia, reflux, gastritis Final Diagnosis A. STOMACH, ANTRUM, BIOPSY: GASTRIC ANTRAL MUCOSA WITH MILD CHRONIC GASTRITIS AND FOCAL DILATED GLANDS. IMMUNOHISTOCHEMICAL STAIN FOR H. PYLORI IS NEGATIVE. B. STOMACH, BODY, BIOPSY: GASTRIC BODY MUCOSA WITH MODERATE TO SEVERE CHRONIC ACTIVE GASTRITIS WITH ASSOCIATED ULCERATION. IMMUNOHISTOCHEMICAL STAIN FOR H. PYLORI IS NEGATIVE. C. GE JUNCTION, BIOPSY: SQUAMOUS MUCOSA WITH MODERATE TO SEVERE REFLUX ESOPHAGITIS, FOCAL ACUTE INFLAMMATION, ULCERATION, AND ASSOCIATED REACTIVE CHANGES. PAS FUNGAL STAIN IS NEGATIVE. NO COLUMNAR MUCOSA, INTESTINAL METAPLASIA, OR DYSPLASIA IDENTIFIED. Electronically Signed Geeta Kirby M.D. Gross Description A. Received in formalin, labeled "biopsy antrum" are 2 pressley, irregular portions of soft tissue measuring 0.3 and 0.4 cm. in greatest dimension. The specimens are submitted in toto in one cassette. B. Received in formalin, labeled "biopsy body of stomach" are 4 pressley, irregular portions of soft tissue ranging from 0.1-0.2 cm. in greatest dimension. The specimens are submitted in toto in one cassette. C. Received in formalin, labeled "biopsy GE junction" are 4 pressley, irregular portions of soft tissue ranging from 0.1-0.4 cm. in greatest dimension. The specimens are submitted in toto in one cassette. 04/17/2018 saudi04/17/2018
== END 2018-04-17 12:46 | disposition home or self-care (01) ==
LOC: JASU-ENDO 09:17
PROVIDERS: ATTEND Internal Medicine Gastroenterology
PROC: 0DB68ZX Excision of Stomach, Via Natural or Artificial Opening Endoscopic, Diagnostic (ICD-10-PCS; 2018-04-17)
PROC: 0DB98ZX Excision of Duodenum, Via Natural or Artificial Opening Endoscopic, Diagnostic (ICD-10-PCS; principal; 2018-04-17 09:00)
DX: K21.0 Gastro-esophageal reflux disease with esophagitis (principal); K44.9 Diaphragmatic hernia without obstruction or gangrene; K21.9 Gastro-esophageal reflux disease without esophagitis; K29.50 Unspecified chronic gastritis without bleeding
CPT/HCPCS: 36415; 82962; 84132; 88305-TC; 88312-TC; 88342-TC

== ENCOUNTER 2018-07-03 07:54 | Day surgery (SDC) | payer OTHER ==
[2018-07-02 16:48] VITALS: BMI 34.7
[2018-07-03] MEDS ORDERED: BUPIVACAINE HCL/PF 0.5% (5MG/ML) 10 ML VIAL ONE (08:56)
[2018-07-03] MEDS ORDERED: LIDOCAINE HCL/PF 2% SDV 5ML VIAL ONE (09:34)
[2018-07-03] MEDS ORDERED: PROPOFOL 20 ML ONE ×3 (09:35→09:36)
[2018-07-03] MEDS ORDERED: fentaNYL CITRATE 250 MCG/5 ML VIAL ONE (09:35)
[2018-07-03] MEDS ORDERED: ROCURONIUM BROMIDE 50 MG/5 ML VIAL ONE ×2 (09:35→10:52)
[2018-07-03] MEDS ORDERED: MIDAZOLAM HCL 2 MG/2 ML SINGLE DOSE VIAL ONE (09:35)
--- NOTE | 2018-07-03 09:37 | HP ---
Admitting History and Physical - Admission Chief Complaint: ventral incisional hernias History of Present Illness: 57 yo female, with PMH morbid obesity, asthma, CAD s/p CABG, CHF, diabetes ( insulin pump), HTN, hyperlipidemia, and CKD5 on HD ( HD on ., ., Sat.) , who presents to the ED with abdominal pain that began about a week ago, associated with one episode of vomiting which brought her to ER. She describes the pain as 10/10 in severity in the epigastric area associated with her hernia. She had CABG in 2010 and since that time has had an upper abdominal hernia that is intermittently uncomfortable. On exam she is not in severe pain. She has previously been assessed by surgeons and recommended bariatric surgery. She was adamant that she did not want to have mesh if the hernia was to require repair. She denies any fever, chills, diarrhea, constipation, shortness of breath or chest pain. we were asked to assess. History Source: Patient, Medical Record Limitations to Obtaining History: No Limitations - Past Medical History Cardiovascular: Yes: CAD, CHF, HTN, Hyperlipdemia Pulmonary: Yes: Asthma Renal/: Yes: Renal Failure, Hemodialysis, Renal Calculi (per patient) Endocrine: Yes: Diabetes Mellitus (DM II on insulin pump) - Past Surgical History Past Surgical History: Yes: AV Fistula/Graft, CABG - Smoking History Smoking history: Never smoked Have you smoked in the past 12 months: No If you are a former smoker, when did you quit?: 1995 - Alcohol/Substance Use Hx Alcohol Use: Yes (SOCIAL) History of Substance Use: reports: None - Social History ADL: Independent 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 History of Recent Travel: No Home Medications - Allergies Allergies/Adverse Reactions: Allergies Allergy/AdvReac Type Severity Reaction Status Date / Time theophylline Allergy Severe THROAT Verified 02/11/18 21:47 SWELLING BEE'S Allergy THROAT Uncoded 09/12/17 06:55 SWELLING TROPICAL FRUITS Allergy THROAT Uncoded 09/12/17 06:55 SWELLING - Home Medications Home Medications: Ambulatory Orders Amlodipine Besylate 10 mg PO DAILY 02/11/18 Aspirin [Ecotrin] 81 mg PO DAILY 02/11/18 Furosemide 80 mg PO DAILY 02/11/18 Labetalol HCl 300 mg PO BID 02/11/18 Insulin Lispro [Humalog] 100 unit SQ DAILY 04/17/18 Pantoprazole Sodium [Protonix -] 20 mg PO DAILY 30 Days #30 tablet.ec 04/17/18 Clotrimazole [Lotrimin 1% Solution -] 1 applic TP DAILY 07/03/18 Sevelamer Carbonate [Renvela] 800 mg PO TID 07/03/18 Family Disease History - Family Disease History Family Disease History: Other: Father (: 93: heart problems), Mother ( 70: heart problems), Son (1, healthy), Daughter (1, healthy, 1 at childbirth) Review of Systems - Review of Systems Constitutional: denies: Chills, Fever Eyes: denies: Blind Spots, Recent Change in Vision HENT: denies: Difficult Swallowing, Throat Pain Neck: denies: Decreased ROM Cardiovascular: reports: Chest Pain. denies: Palpitations Respiratory: reports: SOB. denies: Cough Gastrointestinal: denies: Abdominal Pain, Melena, Nausea Genitourinary: denies: Burning, Discharge Breasts: reports: No Symptoms Reported. denies: Pain Musculoskeletal: reports: Back Pain Integumentary: denies: Blister, Change in Color, Pallor Neurological: denies: Seizure, Syncope Endocrine: denies: Unexplained Weight Gain, Unexplained Weight Loss Hematology/Lymphatic: denies: Easily Bruised, Excessive Bleeding Psychiatric: denies: Anxiety, Depression Physical Examination Vital Signs: Vital Signs Temperature 97.3 F L 07/03/18 09:05 Pulse Rate 58 L 07/03/18 09:05 Respiratory Rate 18 07/03/18 09:05 Blood Pressure 147/77 07/03/18 09:05 O2 Sat by Pulse Oximetry (%) 99 07/03/18 09:05 Constitutional: Yes: Well Nourished, No Distress, Calm, Obese Eyes: Yes: Conjunctiva Clear, EOM Intact HENT: Yes: Atraumatic, Normocephalic Neck: Yes: Supple Cardiovascular: Yes: Regular Rate and Rhythm, S1, S2 Respiratory: Yes: Regular, CTA Bilaterally Gastrointestinal: Yes: Normal Bowel Sounds, Soft, Hernia (epigastric and umbilcal, reducible) ...Rectal Exam: Yes: Deferred Renal/: No: CVA Tenderness - Left, CVA Tenderness - Right Musculoskeletal: Yes: Back Pain Extremities: No: Cool, Cyanosis Edema: No Peripheral Pulses WNL: Yes Peripheral Pulses: Left Radial: 2+, Right Radial: 2+, Left Doralis Pedis: 2+, Right Dorsalis Pedis: 2+, Left Femoral: 2+, Right Femoral: 2+ Integumentary: No: Jaundice, Pressure Ulcer Wound/Incision: Yes: Clean/Dry, Well Approximated Neurological: Yes: Alert, Oriented Psychiatric: Yes: Alert, Oriented Imaging - Results Cat Scan: Report Reviewed, Image Reviewed EKG: Report Reviewed, Image Reviewed Problem List - Problems (1) Ventral hernia without obstruction or gangrene Assessment/Plan: 57 yo female MMP NPO and IVF hydration repeat K ordered Cardiology cleared low risk for hernia repair Discussed with patient risks, benefits and alternatives of laparoscopic possible open ventral hernia repair with mesh, including but not limited to bleeding, infection, injury to adjacent structures, leak or injury, intraabdominal abscess, incisional hernia, need for further procedures, ; alternatives include antibiotics, delayed or no surgery - risks of this include failure of nonoperative therapy, perforation, sepsis, recurrence, . Patient desires to proceed with operation - will take to OR for above. Informed consent signed for same. Code(s): K43.9 - VENTRAL HERNIA WITHOUT OBSTRUCTION OR GANGRENE (2) CKD (chronic kidney disease) stage V requiring chronic dialysis Code(s): N18.6 - END STAGE RENAL DISEASE; Z99.2 - DEPENDENCE ON RENAL DIALYSIS (3) Diabetes Code(s): E11.9 - TYPE 2 DIABETES MELLITUS WITHOUT COMPLICATIONS (4) Diabetes mellitus, insulin dependent (IDDM), uncontrolled Code(s): E10.65 - TYPE 1 DIABETES MELLITUS WITH HYPERGLYCEMIA (5) ESRD (end stage renal disease) Code(s): N18.6 - END STAGE RENAL DISEASE (6) HTN (hypertension) Code(s): I10 - ESSENTIAL (PRIMARY) HYPERTENSION
[2018-07-03] MEDS ORDERED: ceFAZolin SODIUM 1 GM VIAL ONE (10:13)
[2018-07-03] MEDS ORDERED: ceFAZolin SODIUM 1 GM VIAL IVPB ONE (10:17)
[2018-07-03] MEDS ORDERED: BENZOIN TINCTURE SWABSTICK TP ONE (12:30)
[2018-07-03] MEDS ORDERED: GLYCOPYRROLATE 0.2 MG/1 ML VIAL ONE ×3 (12:31→12:38)
[2018-07-03] MEDS ORDERED: NEOSTIGMINE METHYLSULFATE 0.5 MG/ML - 10 ML MDV ONE (12:31)
--- NOTE | 2018-07-03 12:57 | OP ---
Operative Note - Note: Operative Date: 07/03/18 Pre-Operative Diagnosis: ventral incisional epigastric hernia Operation: Laparoscopic Ventral incisional hernia Repair with mesh Findings: Ventral incisional hernia epigastric area 7X5cm defect. falciform and hernia sac debrided to clean edge of fascia. VentralightST 7"X9". umbilical hernia not repaired tiny only containing preperitoneal fat. Post-Operative Diagnosis: Same as Pre-op Surgeon: Dillan Yao Health Companion: Vidal Bender Anesthesiologist/DIRECTOR DATA ANALYTICS: Jaye Marrufo Anesthesia: General, Local (% marcaine ) Estimated Blood Loss (mls): 10 Drains, Volume Out (mls): 10 Fluid Volume Replaced (mls): 300 Operative Report Dictated: Yes
[2018-07-03] MEDS ORDERED: ONDANSETRON 4 MG/2 ML VIAL IVPUSH PRN ×2 (12:58→13:38)
[2018-07-03] MEDS ORDERED: SODIUM CHLORIDE 1,000 ML IV SCH ×2 (13:00→13:38)
[2018-07-03] MEDS ORDERED: ONDANSETRON 4 MG/2 ML VIAL IVPB PRN (13:38)
[2018-07-03] MEDS ORDERED: MORPHINE SULFATE 2 MG/ML VIAL IVPUSH PRN (13:38)
[2018-07-03] MEDS ORDERED: PATIENT'S OWN MEDICATION (NON-FORMULARY) (Insulin Lispro [Humalog] 100 UNIT) SQ SCH (13:38)
--- NOTE | 2018-07-03 15:12 | CONSULT ---
Consult Consult Specialty:: Nephrology Reason for Consultation:: ESRD - History of Present Illness Chief Complaint: s/p hernia repair History of Present Illness: Pt is a 57 year old female with pmhx of ESRD who was admitted for hernia repair. She has history of ESRD and is on HD on a TTS schedule. She is due for HD today. She is currently in the recovery room. She is awake but has some tenderness. She denies shortness of breath. - History Source History Provided By: Patient, Medical Record - Past Medical History Cardio/Vascular: Yes: CAD, CHF, HTN, Hyperlipdemia Pulmonary: Yes: Asthma Renal/: Yes: Renal Failure, Hemodialysis, Renal Calculi (per patient) Endocrine: Yes: Diabetes Mellitus (DM II on insulin pump) Additional Medical History: Macular degeneration, Diabetic retinopathy - Past Surgical History Past Surgical History: Yes: AV Fistula/Graft, CABG - Alcohol/Substance Use Hx Alcohol Use: Yes (SOCIAL) History of Substance Use: reports: None - Smoking History Smoking history: Never smoked Have you smoked in the past 12 months: No If you are a former smoker, when did you quit?: 1995 - Social History Usual Living Arrangement: Alone ADL: Independent 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 History of Recent Travel: No Home Medications - Allergies Allergies/Adverse Reactions: Allergies Allergy/AdvReac Type Severity Reaction Status Date / Time theophylline Allergy Severe THROAT Verified 02/11/18 21:47 SWELLING BEE'S Allergy THROAT Uncoded 09/12/17 06:55 SWELLING TROPICAL FRUITS Allergy THROAT Uncoded 09/12/17 06:55 SWELLING - Home Medications Home Medications: Ambulatory Orders Amlodipine Besylate 10 mg PO DAILY 02/11/18 Aspirin [Ecotrin] 81 mg PO DAILY 02/11/18 Furosemide 80 mg PO DAILY 02/11/18 Labetalol HCl 300 mg PO BID 02/11/18 Insulin Lispro [Humalog] 100 unit SQ DAILY 04/17/18 Pantoprazole Sodium [Protonix -] 20 mg PO DAILY 30 Days #30 tablet.ec 04/17/18 Clotrimazole [Lotrimin 1% Solution -] 1 applic TP DAILY 07/03/18 Sevelamer Carbonate [Renvela] 800 mg PO TID 07/03/18 Family Disease History - Family Disease History Family Disease History: Other: Father (: 93: heart problems), Mother ( 70: heart problems), Son (1, healthy), Daughter (1, healthy, 1 at childbirth) Review of Systems - Review of Systems Constitutional: reports: No Symptoms Eyes: reports: No Symptoms HENT: reports: No Symptoms Neck: reports: No Symptoms Respiratory: reports: No Symptoms Gastrointestinal: reports: Other (s/p hernia repair) Genitourinary: reports: No Symptoms Musculoskeletal: reports: No Symptoms Integumentary: reports: No Symptoms Neurological: reports: No Symptoms Endocrine: reports: No Symptoms Hematology/Lymphatic: reports: No Symptoms Psychiatric: reports: No Symptoms Physical Exam Vital Signs: Vital Signs Temperature 97.7 F 07/03/18 12:52 Pulse Rate 59 L 07/03/18 14:00 Respiratory Rate 18 07/03/18 14:00 Blood Pressure 128/66 07/03/18 14:00 O2 Sat by Pulse Oximetry (%) 97 07/03/18 14:00 Constitutional: Yes: Calm Cardiovascular: Yes: S1, S2 Respiratory: Yes: CTA Bilaterally Gastrointestinal: Yes: Other (dressing in place) Renal/: Yes: WNL Musculoskeletal: Yes: WNL Edema: LLE: Trace, RLE: Trace Neurological: Yes: Oriented Psychiatric: Yes: Oriented Labs: CBC, BMP 07/03/18 09:05 Problem List - Problems (1) ESRD (end stage renal disease) Code(s): N18.6 - END STAGE RENAL DISEASE Assessment/Plan Current Medications Generic Name Dose Route Start Last Admin Trade Name Freq PRN Reason Stop Dose Admin Amlodipine Besylate 10 mg 07/03/18 13:38 Norvasc - PO DAILY [facility] Aspirin 81 mg 07/03/18 13:38 Ecotrin - PO DAILY [facility] Clotrimazole 1 applic 07/03/18 13:38 Lotrimin 1% Solution - TP DAILY [facility] Fentanyl 50 mcg 07/03/18 13:38 Sublimaze Injection - IVPUSH [id number] PRN PAIN-PACU ORDER X 4 DOSES ONLY Furosemide 80 mg 07/03/18 13:38 Lasix - PO DAILY [facility] Heparin Sodium (Porcine) 5,000 unit 07/03/18 22:00 Heparin - SQ TID [facility] Sodium Chloride 1,000 mls @ 75 mls/hr 07/03/18 13:38 Normal Saline - IV ASDIR [facility] Labetalol HCl 300 mg 07/03/18 13:38 Normodyne - PO BID [facility] Morphine Sulfate 2 mg 07/03/18 13:38 Morphine Sulfate IVPUSH Q4H PRN PAIN LEVEL 7 - 10 Non-Formulary Medication 100 unit 07/03/18 13:38 Insulin Lispro [Humalog] SQ DAILY [facility] Ondansetron HCl 4 mg 07/03/18 13:38 Zofran Injection IVPUSH Q6H PRN NAUSEA AND/OR VOMITING Ondansetron HCl 4 mg 07/03/18 13:38 Zofran Injection IVPB Q8H PRN NAUSEA AND/OR VOMITING Pantoprazole Sodium 20 mg 07/03/18 14:45 Protonix - PO DAILY [facility] Sevelamer Carbonate 800 mg 07/03/18 17:30 Renvela - PO TIDCM [facility] Impression 1. ESRD 2. DM 3. HTN 4. abdominal pain 5. CHF 6. asthma 7. s/p hernia repair Plan - will arrange for HD - check labs - check hg - discussed with surgery - renal diet once cleared to eat by surgery - HD: 4 hrs, opti 180, bfr 500, dw 111 kg, 2 k bath, heparin 3000 bolus
[2018-07-03] MEDS ORDERED: SODIUM CHLORIDE 250 ML IV PRN (15:20)
--- NOTE | 2018-07-03 16:19 | OP ---
DATE OF OPERATION: 07/03/2018 PREOPERATIVE DIAGNOSIS: Ventral incisional epigastric hernia. POSTOPERATIVE DIAGNOSIS: Ventral incisional epigastric hernia. PROCEDURE: Laparoscopic ventral incisional hernia repair with mesh. ATTENDING SURGEON: Dillan Yao M.D. VAULT CUSTODIAN: Vidal Bender M.D. ANESTHESIOLOGIST: Jaye Marrufo MD ANESTHESIA: General with local. Local consisted of 0.5% Marcaine a total of 10 mL given in the area block fashion at the port sites. ESTIMATED BLOOD LOSS: 10 mL INTRAVENOUS FLUID ADMINISTERED: 300 mL normal saline URINE OUTPUT: 10 mL during the case, a Landeros was removed postoperatively. IMPLANT: Ventralight ST 7 x 9 inch. Specimen is hernia sac. BRIEF FINDINGS: Patient had a ventral incisional epigastric hernia 7 x 5 cm defect which was reducible containing preperitoneal fat. It was in the epigastric area. The falciform ligament as well as the hernia sac was debrided to clean edge of fascia, Ventralight ST 7 inch x 9 inch hernia mesh was interposed after closing the defect with number 1 PDS in znrvbl-ae-drinnl. Umbilical hernia was not repaired, it was a tiny peritoneal fat containing only. INDICATION: Patient is a 57-year-old female, multiple comorbidities with recurrently symptomatic epigastric hernia. She was counseled regarding risks, benefits, and alternatives to surgical repair. She had preoperative cardiac clearance. She was explained risks, benefits, and alternatives, signed informed consent, was taken to the procedure. DESCRIPTION OF PROCEDURE: Patient was brought to the operating room, she was placed in the supine position on the operating table. She had lower extremity placed to compression with SCDs. She was induced under general anesthesia, endotracheally intubated. She received intravenous antibiotics in the form of Ancef 2 g prior to the start of surgery. Anterior abdominal wall was shaved, prepped, and draped in standard surgical fashion. After identifying the operative site and procedure in the timeout, we begin first with at the horizontal line localized by the umbilical line at the skin, a 12-mm Mock entry was planned. It was the size of the 15 blade scalpel, deepened and widened with Bovie cautery to the fascia of the external oblique. Once identified, the fascia was scored and then elevated into the surgical field. 0 Vicryl was then laid in [id number] for ablation of the site at the end of surgery. With this laid in, blunt entry was made into the abdomen. This was done with the hemostat. A 12-mm trocar Mock was placed and pneumoperitoneum was established at 15 mmHg in the abdominal cavity. After inspection of the site with a 5/30 scope, there appeared to be an atraumatic entry into the abdomen. Abdominal viscera appeared to be normal, uninvolved in the hernia sac, which was identified in the epigastric area, which appeared to be reducible at the skin containing preperitoneal fat as well as a large portion of the falciform ligament. Additional trocar sites were installed, one in the right abdomen and two in the left abdomen. After completing this installation under direct visualization we began first by taking down the remainder of the falciform ligament everting the hernia as it was in the epigastric area, and then debriding it of both falciform ligament as well as the hernia sac using Endoshears and cautery and LigaSure ultimately to take it from its liver attachment. After completing this debridement, the debrided hernia sac and falciform was retrieved from the abdomen through the 12-mm Mock port in the left abdomen with an EndoCatch bag. After removal, it was passed off for pathologic diagnosis. After inspecting the edges of the hernia defect, it was clear at this point that it would require primary repair. This would be done laparoscopically using fqzwtv-xr-urivsj with a number 1 PDS stitch and bdvuvb-js-ddfbue along the length of the hernia defect. The defect was measured with palpation from the skin to be 7 x 5 cm. After measurement, the knyqwd-qg-avduc using the PDS was then laid in under direct visualization, small gaurang was made at the skin, and then the suture passer was used to place the flbaep-ju-lyuei. The knot was then, after relieving pneumoperitoneum, was inspected from below to assure no tissue was interposed and the defect was then narrowed approximating fascial to fascial edges. Once complete, we turned our attention to the umbilical defect for inspection. There appeared to be no intraabdominal herniation, only preperitoneal fat and when reduced it appeared very tiny, the decision was made to leave it without attempting surgical repair. We then turned our attention back to the partially ablated hernia defect. We decided on the mesh size. We decided on the Ventralight 7 inch x 9 inch with the echo PS balloon, this was passed onto the field and then according to application protocols was set and introduced into the field with the provided instrument. Once in the abdomen it was oriented for size, position, and then retrieved with the echo PS balloon hose through the wound. Once outside the echo balloon was inflated applying the mesh in adequate position to the anterior abdominal wall. We then took time to apply 5 mm tacks again under direct visualization to the perimeter of the mesh as it was oriented and palpated at the skin. Care was taken to completely visualize the perimeter and adhere the mesh using the 5 mm tacks to the abdominal wall. Once complete, the echo balloon was then retrieved through this port with a grasper. We were to return to the abdomen for additional inspection and then to apply the remaining tacks to the body of the mesh without using tacks on the hernia defect itself. The site was then documented photographically and trocars were removed under direct visualization after hemostasis was assured with Bovie energy device. The pneumoperitoneum was finally released. All instrument counts were correct. We then decided to close the Mock port site with the previously mentioned 0 Vicryl stitch which was laid in preoperatively. Sites were clean, skin was closed with 4-0 Vicryl in running fashion. A combination of Steri-Strips and Dermabond were used to close the skin edges and dressings were placed in the midline in the epigastric area at the knotholes. Patient was awoken from anesthesia, having tolerated procedure well, was stable throughout, returned to recovery in stable condition. MD OLI Guaman/[id number]
[2018-07-03] MEDS: LABETALOL HCL 200 MG TABLET (FP) PO SCH ×2 (16:45→22:39)
[2018-07-03 18:49] LABS: HEMATOCRIT 39.1 % (32.4-45.2); HEMOGLOBIN 13.4 GM/dL (10.7-15.3); MCH 34.9 pg (25.7-33.7); MCHC 34.2 g/dl (32.0-36.0); MEAN CELL VOLUME 101.8 fl (80-96); MEAN PLT VOLUME 9.5 fl (7.5-11.1); PLATELET COUNT 227 K/MM3 (134-434); RBC 3.84 M/mm3 (3.60-5.2); RDW 14.1 % (11.6-15.6); WHITE BLOOD COUNT 6.1 K/mm3 (4.0-10.0)
[2018-07-03] MEDS: SEVELAMER CARBONATE 800 MG TAB (FP) PO SCH (18:55)
[2018-07-03 19:42] LABS: ALBUMIN 3.6 g/dl (3.4-5.0); ALK PHOS 97 U/L (45-117); ANION GAP 14 MMOL/L (8-16); BILIRUBIN,TOTAL 0.4 mg/dL (0.2-1); BLOOD UREA NITROGEN 75 mg/dL (7-18); CALCIUM 8.6 mg/dL (8.5-10.1); CHLORIDE 98 mmol/L (98-107); CO2 21 mmol/L (21-32); GLUCOSE,RANDOM 205 mg/dL (74-106); SGOT/AST 16 U/L (15-37); SGPT/ALT 17 U/L (13-61); SODIUM 133 mmol/L (136-145); TOT PROT 6.4 g/dl (6.4-8.2)
[2018-07-03 19:48] LABS: CREATININE 10.2 mg/dL (0.55-1.3)
[2018-07-03 19:49] LABS: POTASSIUM 6.1 mmol/L (3.5-5.1)
[2018-07-03] MEDS: FUROSEMIDE 40 MG TABLET (FP) PO SCH (22:38)
[2018-07-03] MEDS: amLODIPine BESYLATE 10 MG TABLET (FP) PO SCH (22:39)
[2018-07-03] MEDS: PANTOPRAZOLE 20 MG TABLET (FP) PO SCH (22:43)
[2018-07-03] MEDS: ASPIRIN COATED 81 MG TABLET.EC PO SCH (22:43)
[2018-07-03] MEDS: HEPARIN NA (PORCINE) 5,000 UNITS/ML 1ML VIAL SQ SCH (22:43)
[2018-07-04] MEDS: HEPARIN NA (PORCINE) 5,000 UNITS/ML 1ML VIAL SQ SCH ×2 (05:35→14:30)
[2018-07-04] MEDS: CLOTRIMAZOLE 1%TOPICAL SOLUTION 30 ML BOTTLE TP SCH ×2 (05:44→10:55)
[2018-07-04 08:18] LABS: ALK PHOS 91 U/L (45-117); ANION GAP 9 MMOL/L (8-16); BILIRUBIN,TOTAL 0.6 mg/dL (0.2-1); BLOOD UREA NITROGEN 36 mg/dL (7-18); CALCIUM 8.4 mg/dL (8.5-10.1); CHLORIDE 100 mmol/L (98-107); CO2 31 mmol/L (21-32); CREATININE 6.8 mg/dL (0.55-1.3); GLUCOSE,RANDOM 180 mg/dL (74-106); POTASSIUM 4.6 mmol/L (3.5-5.1); SGOT/AST 19 U/L (15-37); SGPT/ALT 14 U/L (13-61); SODIUM 140 mmol/L (136-145); TOT PROT 5.9 g/dl (6.4-8.2)
[2018-07-04 08:19] LABS: HEMATOCRIT 37.1 % (32.4-45.2); HEMOGLOBIN 12.6 GM/dL (10.7-15.3); MCH 34.6 pg (25.7-33.7); MCHC 34.1 g/dl (32.0-36.0); MEAN CELL VOLUME 101.7 fl (80-96); MEAN PLT VOLUME 9.5 fl (7.5-11.1); PLATELET COUNT 201 K/MM3 (134-434); RBC 3.65 M/mm3 (3.60-5.2); RDW 13.9 % (11.6-15.6); WHITE BLOOD COUNT 6.7 K/mm3 (4.0-10.0)
--- NOTE | 2018-07-04 08:48 | DS ---
Physical Examination Vital Signs: Vital Signs Temperature 98.5 F 07/04/18 05:00 Pulse Rate 80 07/04/18 05:00 Respiratory Rate 18 07/04/18 05:00 Blood Pressure 146/75 07/04/18 05:00 O2 Sat by Pulse Oximetry (%) 97 07/03/18 16:30 Vital Signs Period Temp Pulse Resp BP Sys/Griffith Pulse Ox Last 24 Hr 97.6 F-98.8 F 53-80 12-21 82-148/40-84 97-100 Findings/Remarks: stable overnight. tolerating diet. pain is controlled. seen by renal and PMD. Constitutional: Yes: Well Nourished, No Distress, Calm, Obese Eyes: Yes: Conjunctiva Clear, EOM Intact HENT: Yes: Atraumatic, Normocephalic Neck: Yes: Supple, Trachea Midline Cardiovascular: Yes: Regular Rate and Rhythm, S1, S2 Respiratory: Yes: Regular, CTA Bilaterally Gastrointestinal: Yes: Normal Bowel Sounds, Soft, Tenderness (incisional) ...Rectal Exam: Yes: Deferred Renal/: No: CVA Tenderness - Left, CVA Tenderness - Right Musculoskeletal: Yes: Back Pain. No: Joint Stiffness, Joint Swelling Extremities: No: Calf Tenderness, Cool, Cyanosis Edema: No Peripheral Pulses WNL: Yes Peripheral Pulses: Left Radial: 2+, Right Radial: 2+, Left Doralis Pedis: 2+, Right Dorsalis Pedis: 2+, Left Femoral: 2+, Right Femoral: 2+ Integumentary: Yes: Incision. No: Bruising, Erythema, Jaundice, Petechiae Wound/Incision: Yes: Clean/Dry, Well Approximated, Dressing Dry and Intact Neurological: Yes: Alert, Oriented Psychiatric: Yes: Alert, Oriented Labs: CBC, BMP 07/04/18 06:30 07/04/18 06:30 Discharge Summary Reason For Visit: VENTRAL HERNIA W/O OBSTRUCTION OR GANGRENE VENTRAL INCISIONAL HERNIA Procedures: Principal: laparoscopic ventral incisonal hernia repair with mesh Hospital Course: admitted for an ambulatory procedure. uneventful surgery. stable post operatively for discharge home with scheduled followup with PMD Condition: Improved - Instructions Diet, Activity, Other Instructions: Postoperative instructions: You had a laparoscopic ventral hernia Repair on 07/[address] Dillan Yao of [facility]. Activity: Resume your usual activities gradually, but no heavy exertion or lifting more than 10-15 pounds for 1 month. Remove dressings 48 hours after surgery; sticky tapes underneath will fall off by themselves. You may shower daily starting then, just pat the incision areas dry. No bath or swimming until skin incisions have healed. Eat lightly at first, but advance to your usual diet as tolerated. Pain: For pain, you may use and alternate Tylenol (acetaminophen) 1-2 pills and/ or ibuprofen 200 mg (1-3 pills) every 6 hours each as needed; this means that you can take one OR the other at 3-hour intervals. If you are prescribed a Tylenol/narcotic combination for severe pain, use it instead of plain Tylenol as needed and switch back when your pain starts decreasing. Do not take more than 4000mg of acetaminophen in a day. Take medications as prescribed or indicated on the labeling. Follow-up: Call Dr. Yao' office at [phone] to make your postop appointment (Monday in approximately 2 weeks after surgery). Clinic is held in the [facility] on the first floor of [facility]. Call the office if you have: * increasing pain not responsive to pain medication * fever of 101F or higher * vomiting * unusual or increasing bleeding or drainage from wounds * increasing redness or swelling at wound sites * inability to urinate Also, see your primary medical doctor within 1-2 weeks. Referrals: Prema Glass MD [Staff Physician] - Disposition: HOME - Home Medications Comprehensive Discharge Medication List: Ambulatory Orders Amlodipine Besylate 10 mg PO DAILY 02/11/18 Aspirin [Ecotrin] 81 mg PO DAILY 02/11/18 Furosemide 80 mg PO DAILY 02/11/18 Labetalol HCl 300 mg PO BID 02/11/18 Insulin Lispro [Humalog] 100 unit SQ DAILY 04/17/18 Pantoprazole Sodium [Protonix -] 20 mg PO DAILY 30 Days #30 tablet.ec 04/17/18 Clotrimazole [Lotrimin 1% Solution -] 1 applic TP DAILY 07/03/18 Sevelamer Carbonate [Renvela] 800 mg PO TID 07/03/18
[2018-07-04] MEDS: SEVELAMER CARBONATE 800 MG TAB (FP) PO SCH ×3 (08:49→18:41)
[2018-07-04] MEDS ORDERED: PT OWN MED DRAWER 7, Y5N ONE (10:52)
[2018-07-04] MEDS: PANTOPRAZOLE 20 MG TABLET (FP) PO SCH (10:57)
[2018-07-04] MEDS: amLODIPine BESYLATE 10 MG TABLET (FP) PO SCH ×2 (10:57→11:04)
[2018-07-04] MEDS: ASPIRIN COATED 81 MG TABLET.EC PO SCH (10:57)
[2018-07-04] MEDS: FUROSEMIDE 40 MG TABLET (FP) PO SCH (10:57)
[2018-07-04] MEDS: LABETALOL HCL 200 MG TABLET (FP) PO SCH (10:57)
[2018-07-04] MEDS ORDERED: INSULIN (NOVOLOG) ASPART 100 UNITS/ML 10ML VIAL ONE (12:19)
[2018-07-04 13:05] VITALS: TEMP 98.3
--- NOTE | 2018-07-04 13:23 | PN ---
Progress Note, Physician History of Present Illness: Pt seen and examined at bedside. She is awake and alert. She denies shortness of breath. - Current Medication List Current Medications: Active Medications Amlodipine Besylate (Norvasc -) 10 mg PO DAILY [facility] Last Admin: 07/04/18 11:04 Dose: Not Given Aspirin (Ecotrin -) 81 mg PO DAILY [facility] Last Admin: 07/04/18 10:57 Dose: 81 mg Clotrimazole (Lotrimin 1% Solution -) 1 applic TP DAILY [facility] Last Admin: 07/04/18 05:44 Dose: Not Given Furosemide (Lasix -) 80 mg PO DAILY [facility] Last Admin: 07/04/18 10:57 Dose: 80 mg Heparin Sodium (Porcine) (Heparin -) 5,000 unit SQ TID [facility] Last Admin: 07/04/18 05:35 Dose: 5,000 unit Sodium Chloride (Normal Saline -) 250 mls @ 3,000 mls/hr IV PRN PRN PRN Reason: Hypotension during Dialysis Stop: 07/04/18 15:20 Labetalol HCl (Normodyne -) 300 mg PO BID [facility] Last Admin: 07/04/18 10:57 Dose: 300 mg Morphine Sulfate (Morphine Sulfate) 2 mg IVPUSH Q4H PRN PRN Reason: PAIN LEVEL 7 - 10 Last Admin: 07/04/18 05:35 Dose: 2 mg Non-Formulary Medication (Insulin Lispro [Humalog]) 100 unit SQ DAILY [facility] Ondansetron HCl (Zofran Injection) 4 mg IVPB Q8H PRN PRN Reason: NAUSEA AND/OR VOMITING Pantoprazole Sodium (Protonix -) 20 mg PO DAILY [facility] Last Admin: 07/04/18 10:57 Dose: 20 mg Sevelamer Carbonate (Renvela -) 800 mg PO TIDCM [facility] Last Admin: 07/04/18 12:23 Dose: 800 mg - Objective Vital Signs: Vital Signs Temperature 98.3 F 07/04/18 13:04 Pulse Rate 74 07/04/18 13:04 Respiratory Rate 16 07/04/18 13:04 Blood Pressure 116/58 L 07/04/18 13:04 O2 Sat by Pulse Oximetry (%) 97 07/03/18 16:30 Constitutional: Yes: Calm Eyes: Yes: Conjunctiva Clear HENT: Yes: Atraumatic Neck: Yes: Supple Cardiovascular: Yes: S1, S2 Respiratory: Yes: CTA Bilaterally Gastrointestinal: Yes: Other (dressing in place) Genitourinary: Yes: WNL Edema: No Neurological: Yes: Oriented Psychiatric: Yes: Oriented Labs: CBC, BMP 07/04/18 06:30 07/04/18 06:30 Problem List - Problems (1) ESRD (end stage renal disease) Code(s): N18.6 - END STAGE RENAL DISEASE Assessment/Plan Current Medications Generic Name Dose Route Start Last Admin Trade Name Freq PRN Reason Stop Dose Admin Amlodipine Besylate 10 mg 07/03/18 13:38 07/04/18 11:04 Norvasc - PO Not Given DAILY [facility] Aspirin 81 mg 07/03/18 13:38 07/04/18 10:57 Ecotrin - PO 81 mg DAILY [facility] Administration Clotrimazole 1 applic 07/03/18 13:38 07/04/18 05:44 Lotrimin 1% Solution - TP Not Given DAILY [facility] Furosemide 80 mg 07/03/18 13:38 07/04/18 10:57 Lasix - PO 80 mg DAILY [facility] Administration Heparin Sodium (Porcine) 5,000 unit 07/03/18 22:00 07/04/18 05:35 Heparin - SQ 5,000 unit TID [facility] Administration Sodium Chloride 250 mls @ 3,000 mls/hr 07/03/18 15:20 Normal Saline - IV 07/04/18 15:20 PRN PRN Hypotension during Dialysis Labetalol HCl 300 mg 07/03/18 13:38 07/04/18 10:57 Normodyne - PO 300 mg BID [facility] Administration Morphine Sulfate 2 mg 07/03/18 13:38 07/04/18 05:35 Morphine Sulfate IVPUSH 2 mg Q4H PRN Administration PAIN LEVEL 7 - 10 Non-Formulary Medication 100 unit 07/03/18 13:38 Insulin Lispro [Humalog] SQ DAILY [facility] Ondansetron HCl 4 mg 07/03/18 13:38 Zofran Injection IVPB Q8H PRN NAUSEA AND/OR VOMITING Pantoprazole Sodium 20 mg 07/03/18 14:45 07/04/18 10:57 Protonix - PO 20 mg DAILY [facility] Administration Sevelamer Carbonate 800 mg 07/03/18 17:30 07/04/18 12:23 Renvela - PO 800 mg TIDCM [facility] Administration Impression 1. ESRD 2. DM 3. HTN 4. abdominal pain 5. CHF 6. asthma 7. s/p hernia repair Plan - pt has HD set up as outpt tomorrow - should cont with TTS schedule - will dialyze her tomorrow if not discharged today - renal dit - HD: 4 hrs, opti 180, bfr 500, dw 111 kg, 2 k bath, heparin 3000 bolus
[2018-07-04] MEDS ORDERED: SODIUM CHLORIDE 0.9% 500 ML INFUS.BAG IV ONE (14:29)
[2018-07-04 17:02] VITALS: BP 147/62; PULSE 62
--- NOTE | 2018-07-05 17:15 | PATH ---
Surgical Pathology Report Patient Name: PATRICIA ANDERSON [facility]. Rec. #: [id number] /Age/Gender: 1960 (Age: 57) / F Account: [id number] Location: AMBULATORY SURG Taken: 07/03/2018 Received: 07/04/2018 Reported: 07/05/2018 Physicians: Dillan Yao M.D. Specimen(s) Received HERNIA SAC Clinical History Ventral hernia without obstruction or gangrene Final Diagnosis HERNIA SAC, EXCISION: CONSISTENT WITH HERNIA SAC. Electronically Signed Malcolm Barrios M.D. Gross Description Received in formalin labeled "hernia sac," is an 8.8 x 4.8 x 3.0 cm pressley-eng portion of fibromembranous tissue with abundant attached fat, consistent with a hernia sac. Sectioning reveals homogeneous yellow, lobulated adipose tissue. No areas of hemorrhage or necrosis are identified. A marketing sales representative section is submitted in one cassette. /07/04/2018 saudi07/04/2018
== END 2018-07-04 18:48 | disposition home or self-care (01) ==
LOC: JASU-SURG 07:54 → JASUSAT 07:54 → J5S 16:25 → JASUSAT 07-04 18:48
PROC: 0WUF4JZ Supplement Abdominal Wall with Synthetic Substitute, Percutaneous Endoscopic Approach (ICD-10-PCS; principal; 2018-07-03 10:00)
DX: K43.2 Incisional hernia without obstruction or gangrene (principal); I12.0 Hypertensive chronic kidney disease with stage 5 chronic kidney disease or end stage renal disease; E11.22 Type 2 diabetes mellitus with diabetic chronic kidney disease; N18.6 End stage renal disease; Z99.2 Dependence on renal dialysis
CPT/HCPCS: 36415; 80048; 80053; 82962; 84132; 84484; 85027; 86707; 86803; 86850; 86900; 86901; 87350; 88302-TC; 94760; 97116-GP; 97161-GP; J1644

== ENCOUNTER 2020-11-03 11:24 | Emergency (ER) | payer OTHER ==
[2020-11-03 11:50] VITALS: BP 196/84; PULSE 64; TEMP 98.9; BMI 37.6
[2020-11-03] MEDS ORDERED: ACETAMINOPHEN 500 MG TABLET (FP) PO ONE (12:25)
[2020-11-03] MEDS ORDERED: ACETAMINOPHEN 500 MG TABLET (FP) ONE (12:27)
== END 2020-11-03 12:30 | disposition home or self-care (01) ==
LOC: JER 11:24
DX: T59.3X3A Toxic effect of lacrimogenic gas, assault, initial encounter (principal); R51.9 Headache, unspecified
CPT/HCPCS: 99283-25

== ENCOUNTER 2021-01-12 15:55 | Inpatient (IN) | payer OTHER ==
[2021-01-12] MEDS ORDERED: ACETAMINOPHEN 325 MG TABLET (FP) PO ONE (20:15)
[2021-01-12] MEDS ORDERED: ACETAMINOPHEN 325 MG TABLET (FP) ONE (20:22)
[2021-01-12 20:45] LABS: BASO % 0.4 % (0-2.0); EOS % 0.5 % (0-4.5); HEMOGLOBIN 7.8 GM/dL (10.7-15.3); LYMPH % 4.6 % (8-40); MCH 29.6 pg (25.7-33.7); MCHC 32.4 g/dl (32.0-36.0); MEAN CELL VOLUME 91.4 fl (80-96); MEAN PLT VOLUME 8.5 fl (7.5-11.1); MONO % 5.5 % (3.8-10.2); PLATELET COUNT 194 10^3/uL (134-434); RBC 2.62 M/mm3 (3.60-5.2); RDW 16.5 % (11.6-15.6); WHITE BLOOD COUNT 6.4 K/mm3 (4.0-10.0)
[2021-01-12 20:54] LABS: INR 1.03 (0.83-1.09); PROTHROMBIN TIME (PATIENT) 12.5 SEC (9.7-13.0)
[2021-01-12 20:57] LABS: ACTIVATED PTT 33.7 SECONDS (25.2-36.5)
[2021-01-12 21:04] LABS: CHLORIDE 109 mmol/L (98-107); SODIUM 137 mmol/L (136-145)
[2021-01-12 21:05] LABS: CALCIUM 8.8 mg/dL (8.5-10.1)
[2021-01-12 21:06] LABS: ALBUMIN 3.6 g/dl (3.4-5.0); ANION GAP 10 MMOL/L (8-16); BLOOD UREA NITROGEN 56.8 mg/dL (7-18); CO2 19 mmol/L (21-32); GLUCOSE,RANDOM 249 mg/dL (74-106)
[2021-01-12 21:09] LABS: SGOT/AST 7 U/L (15-37); SGPT/ALT 17 U/L (13-61)
[2021-01-12 21:11] LABS: BILIRUBIN,TOTAL 0.3 mg/dL (0.2-1); TOT PROT 5.8 g/dl (6.4-8.2)
[2021-01-12 21:12] LABS: ALK PHOS 42 U/L (45-117)
[2021-01-12] MEDS ORDERED: ACETAMINOPHEN 325 MG TABLET (FP) PO PRN (22:41)
[2021-01-13 00:05] LABS: MAGNESIUM 2.2 mg/dL (1.8-2.4)
[2021-01-13 00:08] LABS: PHOSPHOROUS 4.8 mg/dL (2.5-4.9)
[2021-01-13] MEDS: FUROSEMIDE 40 MG/4 ML INJECTABLE VIAL IVPUSH SCH ×2 (04:04→09:24)
[2021-01-13] MEDS: INSULIN SLIDING SCALE (NOVOLOG) 1 VIAL SQ SCH ×4 (05:21→17:01)
[2021-01-13] MEDS ORDERED: FUROSEMIDE 40 MG/4 ML INJECTABLE VIAL ONE ×2 (05:30→08:31)
[2021-01-13] MEDS ORDERED: oxyCODONE HCL 5 MG TABLET ONE (05:41)
[2021-01-13 05:53] LABS: BASO % 0.5 % (0-2.0); EOS % 1.2 % (0-4.5); HEMATOCRIT 21.8 % (32.4-45.2); MCH 29.7 pg (25.7-33.7); MCHC 32.2 g/dl (32.0-36.0); MEAN PLT VOLUME 9.2 fl (7.5-11.1); MONO % 7.3 % (3.8-10.2); PLATELET COUNT 183 10^3/uL (134-434); RBC 2.36 M/mm3 (3.60-5.2); RDW 16.4 % (11.6-15.6); WHITE BLOOD COUNT 5.5 K/mm3 (4.0-10.0)
[2021-01-13] MEDS: oxyCODONE HCL 5 MG TABLET PO PRN (06:00)
[2021-01-13 06:01] LABS: CALCIUM 8.4 mg/dL (8.5-10.1)
[2021-01-13 06:02] LABS: BLOOD UREA NITROGEN 56.2 mg/dL (7-18)
[2021-01-13 06:20] LABS: EPI CELLS 4 /uL (0-25.1); HYALINE CASTS 0 /uL (0-3.1); URINE APPEARANCE CLEAR; URINE BACTERIA 1752 /uL (0-1359); URINE BILIRUBIN NEGATIVE (NEGATIVE); URINE COLOR YELLOW; URINE GLUCOSE (UA) 3+ (NEGATIVE); URINE KETONE NEGATIVE (NEGATIVE); URINE LEUK ESTERASE 2+ (NEGATIVE); URINE NITRITE NEGATIVE (NEGATIVE); URINE PROTEIN 3+ (NEGATIVE); URINE RBC 8 /uL (0-23.9); URINE UROBILINOGEN 0.2 mg/dL (0.2-1.0); URINE WBC 332 /uL (0-25.8)
[2021-01-13] MEDS ORDERED: IRON SUCROSE INJECTION 200 MG in SODIUM CHLORIDE 90 ML IVPB ONE (07:51)
[2021-01-13] MEDS ORDERED: PT OWN MED DRAWER 7, Y5N ONE ×2 (08:26→12:09)
[2021-01-13] MEDS ORDERED: LABETALOL HCL 100 MG TABLET (FP) ONE (08:30)
[2021-01-13] MEDS ORDERED: ASPIRIN COATED 81 MG TABLET.EC ONE (08:30)
[2021-01-13] MEDS ORDERED: amLODIPine BESYLATE 5 MG TABLET (FP) ONE (08:31)
[2021-01-13] MEDS ORDERED: PANTOPRAZOLE 40 MG TABLET ONE (08:31)
[2021-01-13] MEDS ORDERED: INSULIN SLIDING SCALE (NOVOLOG) 1 VIAL SQ ONE (09:11)
[2021-01-13] MEDS: SEVELAMER CARBONATE 800 MG TAB (FP) PO SCH ×3 (09:23→17:01)
[2021-01-13] MEDS: ASPIRIN COATED 81 MG TABLET.EC PO SCH (09:24)
[2021-01-13] MEDS: amLODIPine BESYLATE 5 MG TABLET (FP) PO SCH (09:24)
[2021-01-13] MEDS: LABETALOL HCL 100 MG TABLET (FP) PO SCH ×2 (09:24→21:50)
[2021-01-13] MEDS: PANTOPRAZOLE 40 MG TABLET PO SCH (09:24)
[2021-01-13] MEDS ORDERED: EPOETIN ALFA-EPBX 20,000 UNIT/ML VIAL SQ ONE (11:39)
[2021-01-13] MEDS: predniSONE 5 MG TABLET (UD) PO SCH (16:17)
[2021-01-13] MEDS: MYCOPHENOLATE MOFETIL 500 MG TABLET PO SCH (21:49)
[2021-01-13] MEDS: TACROLIMUS ANHYDROUS 5 MG CAPSULE PO SCH (21:49)
[2021-01-14] MEDS: oxyCODONE HCL 5 MG TABLET PO PRN (06:49)
[2021-01-14] MEDS: INSULIN SLIDING SCALE (NOVOLOG) 1 VIAL SQ SCH ×3 (06:50→16:38)
[2021-01-14] MEDS: SEVELAMER CARBONATE 800 MG TAB (FP) PO SCH ×3 (08:51→17:53)
[2021-01-14 09:02] LABS: BASO % 0.5 % (0-2.0); EOS % 1.9 % (0-4.5); HEMATOCRIT 20.7 % (32.4-45.2); LYMPH % 7.5 % (8-40); MCH 29.4 pg (25.7-33.7); MCHC 32.1 g/dl (32.0-36.0); MEAN CELL VOLUME 91.5 fl (80-96); MEAN PLT VOLUME 9.1 fl (7.5-11.1); MONO % 7.8 % (3.8-10.2); NEUT % 82.3 % (42.8-82.8); PLATELET COUNT 179 10^3/uL (134-434); RBC 2.26 M/mm3 (3.60-5.2); RDW 16.4 % (11.6-15.6)
[2021-01-14] MEDS ORDERED: ACETAMINOPHEN 325 MG TABLET (FP) PO PRN (09:05)
[2021-01-14 09:21] LABS: HEMOGLOBIN 6.6 GM/dL (10.7-15.3)
[2021-01-14 09:25] LABS: BLOOD UREA NITROGEN 58.8 mg/dL (7-18); CALCIUM 8.5 mg/dL (8.5-10.1)
[2021-01-14 09:29] LABS: CREATININE 6.1 mg/dL (0.55-1.3)
[2021-01-14 10:10] LABS: SARS-CoV-2 NAA Not Detected (Not Detected)
[2021-01-14] MEDS: FUROSEMIDE 40 MG TABLET (FP) PO SCH (10:25)
[2021-01-14] MEDS: ASPIRIN COATED 81 MG TABLET.EC PO SCH (10:25)
[2021-01-14] MEDS: LABETALOL HCL 100 MG TABLET (FP) PO SCH ×2 (10:25→21:59)
[2021-01-14] MEDS: PANTOPRAZOLE 40 MG TABLET PO SCH (10:25)
[2021-01-14] MEDS: amLODIPine BESYLATE 5 MG TABLET (FP) PO SCH (10:26)
[2021-01-14] MEDS: predniSONE 5 MG TABLET (UD) PO SCH (10:26)
[2021-01-14] MEDS: TACROLIMUS ANHYDROUS 5 MG CAPSULE PO SCH ×2 (10:27→21:59)
[2021-01-14] MEDS: MYCOPHENOLATE MOFETIL 500 MG TABLET PO SCH ×2 (10:27→21:58)
[2021-01-14 15:40] VITALS: BMI 40.1
[2021-01-14] MEDS ORDERED: EPOETIN ALFA-EPBX 20,000 UNIT/ML VIAL SQ ONE (20:33)
[2021-01-14] MEDS ORDERED: PT OWN MED DRAWER 7, Y5N ONE (22:07)
[2021-01-15] MEDS: INSULIN SLIDING SCALE (NOVOLOG) 1 VIAL SQ SCH ×2 (06:01→12:00)
[2021-01-15] MEDS: LABETALOL HCL 100 MG TABLET (FP) PO SCH (09:20)
[2021-01-15] MEDS: FUROSEMIDE 40 MG TABLET (FP) PO SCH (09:20)
[2021-01-15] MEDS: ASPIRIN COATED 81 MG TABLET.EC PO SCH (09:20)
[2021-01-15] MEDS: amLODIPine BESYLATE 5 MG TABLET (FP) PO SCH (09:20)
[2021-01-15] MEDS: PANTOPRAZOLE 40 MG TABLET PO SCH (09:20)
[2021-01-15] MEDS: SEVELAMER CARBONATE 800 MG TAB (FP) PO SCH ×2 (09:20→13:10)
[2021-01-15] MEDS: predniSONE 5 MG TABLET (UD) PO SCH (09:21)
[2021-01-15] MEDS: MYCOPHENOLATE MOFETIL 500 MG TABLET PO SCH (09:21)
[2021-01-15] MEDS: TACROLIMUS ANHYDROUS 5 MG CAPSULE PO SCH (09:21)
[2021-01-15] MEDS ORDERED: PT OWN MED DRAWER 7, Y5N ONE (09:32)
[2021-01-15 10:06] LABS: BASO % 0.9 % (0-2.0); EOS % 2.2 % (0-4.5); HEMATOCRIT 22.3 % (32.4-45.2); HEMOGLOBIN 7.1 GM/dL (10.7-15.3); MCH 29.4 pg (25.7-33.7); MCHC 31.9 g/dl (32.0-36.0); MEAN CELL VOLUME 92.4 fl (80-96); MEAN PLT VOLUME 9.5 fl (7.5-11.1); MONO % 8.5 % (3.8-10.2); NEUT % 83.4 % (42.8-82.8); PLATELET COUNT 192 10^3/uL (134-434); RBC 2.42 M/mm3 (3.60-5.2); RDW 16.9 % (11.6-15.6); WHITE BLOOD COUNT 6.1 K/mm3 (4.0-10.0)
[2021-01-15 10:31] LABS: CALCIUM 8.9 mg/dL (8.5-10.1)
[2021-01-15 10:32] LABS: BLOOD UREA NITROGEN 55.1 mg/dL (7-18)
[2021-01-15 10:35] LABS: CREATININE 6.2 mg/dL (0.55-1.3)
[2021-01-15 10:37] VITALS: BP 183/72; PULSE 66; TEMP 98.3
== END 2021-01-15 16:38 | disposition home or self-care (01) | DRG 811 ==
LOC: JER 15:55 → JERBED 21:39 → J5S 01-13 10:05
PROVIDERS: ADMIT Internal Medicine; ATTEND Internal Medicine
DX: D50.9 Iron deficiency anemia, unspecified (principal); N18.6 End stage renal disease; I50.33 Acute on chronic diastolic (congestive) heart failure; I13.2 Hypertensive heart and chronic kidney disease with heart failure and with stage 5 chronic kidney disease, or end stage renal disease; Z94.0 Kidney transplant status; Z68.41 Body mass index [BMI] 40.0-44.9, adult; E11.9 Type 2 diabetes mellitus without complications; E78.5 Hyperlipidemia, unspecified; E66.01 Morbid (severe) obesity due to excess calories; Z99.2 Dependence on renal dialysis; E83.39 Other disorders of phosphorus metabolism; I25.10 Atherosclerotic heart disease of native coronary artery without angina pectoris; Z95.1 Presence of aortocoronary bypass graft
CPT/HCPCS: 36415; 73030-TC-RT-FY; 80048; 80053; 81003; 82728; 82962; 83036; 83540; 83550; 83735; 84100; 84484; 85025; 85610; 85730; 86803; 86850; 86900; 86901; 86922; 87086; 87340; 93005; 93010; 93971; 97116-GP; 97161-GP; 99285-25; C9803; J1756; J7517; U0003; U0005

== ENCOUNTER 2021-06-24 12:26 | Emergency (ER) | payer OTHER ==
[2021-06-24 13:15] VITALS: BMI 34.3
[2021-06-24 13:18] LABS: BASO % 1.2 % (0-2.0); EOS % 2.5 % (0-4.5); HEMATOCRIT 31.5 % (32.4-45.2); HEMOGLOBIN 10.2 GM/dL (10.7-15.3); LYMPH % 19.3 % (8-40); MCH 29.8 pg (25.7-33.7); MCHC 32.3 g/dl (32.0-36.0); MEAN CELL VOLUME 92.3 fl (80-96); MEAN PLT VOLUME 8.5 fl (7.5-11.1); MONO % 8.8 % (3.8-10.2); NEUT % 68.2 % (42.8-82.8); PLATELET COUNT 211 10^3/uL (134-434); RBC 3.41 M/mm3 (3.60-5.2); RDW 15.9 % (11.6-15.6); WHITE BLOOD COUNT 4.1 K/mm3 (4.0-10.0)
[2021-06-24 14:01] LABS: ALBUMIN 3.2 g/dl (3.4-5.0); CALCIUM 9.2 mg/dL (8.5-10.1); MAGNESIUM 2.1 mg/dL (1.8-2.4)
[2021-06-24 14:04] LABS: CREATININE 2.6 mg/dL (0.55-1.3)
[2021-06-24 14:05] LABS: BILIRUBIN,TOTAL 0.6 mg/dL (0.2-1); TOT PROT 6.6 g/dl (6.4-8.2)
[2021-06-24 17:43] VITALS: TEMP 99.8
[2021-06-24 19:42] VITALS: BP 156/65; PULSE 76
== END 2021-06-24 20:24 | disposition home or self-care (01) ==
LOC: JER 12:26
DX: N18.6 End stage renal disease (principal); E66.9 Obesity, unspecified; M25.511 Pain in right shoulder
CPT/HCPCS: 36415; 71045-TC-FY; 80053; 82550; 83735; 84484; 85025; 93005; 93010; 99285-25; C9803; U0003; U0005

== ENCOUNTER 2023-02-16 03:54 | Inpatient (IN) | payer OTHER ==
[2023-02-16] MEDS ORDERED: methylPREDNISolone NA SUCC 125 MG/2 ML VIAL IVPUSH ONE (04:41)
[2023-02-16] MEDS ORDERED: ALBUTEROL SO4 2.5/IPRATROPIUM 0.5 INH SOL 3 ML VIAL.NEB. NEB ONE ×4 (04:41→07:20)
[2023-02-16] MEDS ORDERED: ACETAMINOPHEN 1000 MG/100 ML BAG IVPB ONE (04:42)
[2023-02-16] MEDS ORDERED: methylPREDNISolone NA SUCC 125 MG/2 ML VIAL ONE (04:50)
[2023-02-16] MEDS ORDERED: ACETAMINOPHEN INJECTION 100 ML IVPB ONE (04:50)
[2023-02-16 05:24] LABS: INR 1.02 (0.83-1.09); PROTHROMBIN TIME (PATIENT) 11.8 SEC (9.7-13.0)
[2023-02-16 05:26] LABS: ACTIVATED PTT 31.3 SECONDS (25.2-36.5)
[2023-02-16 05:29] LABS: CHLORIDE 97 mmol/L (98-107); POTASSIUM 4.7 mmol/L (3.5-5.1); SODIUM 135 mmol/L (136-145)
[2023-02-16 05:31] LABS: ALBUMIN 3.3 g/dl (3.4-5.0); ANION GAP 12 MMOL/L (8-16); CALCIUM 8.3 mg/dL (8.5-10.1); CO2 26 mmol/L (21-32); GLUCOSE,RANDOM 145 mg/dL (74-106); MAGNESIUM 2.1 mg/dL (1.8-2.4)
[2023-02-16 05:34] LABS: PHOSPHOROUS 5.2 mg/dL (2.5-4.9); SGOT/AST 12 U/L (15-37); SGPT/ALT 14 U/L (13-61)
[2023-02-16 05:35] VITALS: BMI 31.1
[2023-02-16 05:36] LABS: BASO % 1.2 % (0-2.0); BILIRUBIN,TOTAL 0.4 mg/dL (0.2-1); EOS % 2.3 % (0-4.5); HEMATOCRIT 36.3 % (32.4-45.2); LYMPH % 23.4 % (8-40); MCH 32.3 pg (25.7-33.7); MEAN CELL VOLUME 98.1 fl (80-96); MEAN PLT VOLUME 10.1 fl (7.5-11.1); MONO % 12.4 % (3.8-10.2); NEUT % 60.7 % (42.8-82.8); PLATELET COUNT 195 10^3/uL (134-434); RDW 14.2 % (11.6-15.6); WHITE BLOOD COUNT 4.2 K/mm3 (4.0-10.0)
[2023-02-16 05:37] LABS: ALK PHOS 75 U/L (45-117); TOT PROT 6.7 g/dl (6.4-8.2)
[2023-02-16 05:40] LABS: CREATININE 8.3 mg/dL (0.55-1.3)
[2023-02-16] MEDS: ALBUTEROL SO4 2.5/IPRATROPIUM 0.5 INH SOL 3 ML VIAL.NEB. NEB SCH ×2 (06:59→07:31)
[2023-02-16] MEDS ORDERED: APIXABAN 2.5 MG TABLET PO SCH (08:15)
[2023-02-16] MEDS ORDERED: ALBUTEROL SO4 2.5/IPRATROPIUM 0.5 INH SOL 3 ML VIAL.NEB. NEB PRN (08:23)
[2023-02-16] MEDS ORDERED: LABETALOL HCL 100 MG TABLET (FP) ONE (09:01)
[2023-02-16] MEDS ORDERED: amLODIPine BESYLATE 10 MG TABLET (FP) ONE (09:01)
[2023-02-16] MEDS ORDERED: PANTOPRAZOLE 40 MG TABLET PO ONE (09:01)
[2023-02-16] MEDS ORDERED: APIXABAN 2.5 MG TABLET ONE (09:01)
[2023-02-16] MEDS ORDERED: CARVEDILOL 25 MG TABLET (FP) ONE (09:01)
[2023-02-16] MEDS ORDERED: ASPIRIN COATED 81 MG TABLET.EC ONE (09:01)
[2023-02-16] MEDS ORDERED: CHOLECALCIFEROL (VIT D3) 1,000 UNIT (25 MCG) TABLET ONE (09:02)
[2023-02-16] MEDS: ASPIRIN COATED 81 MG TABLET.EC PO SCH (09:16)
[2023-02-16] MEDS: CARVEDILOL 25 MG TABLET (FP) PO SCH ×2 (09:16→22:36)
[2023-02-16] MEDS: APIXABAN 2.5 MG TABLET PO SCH ×2 (09:17→22:36)
[2023-02-16] MEDS: CHOLECALCIFEROL (VIT D3) 1,000 UNIT (25 MCG) TABLET PO SCH (09:17)
[2023-02-16] MEDS: amLODIPine BESYLATE 10 MG TABLET (FP) PO SCH (09:17)
[2023-02-16] MEDS: LABETALOL HCL 100 MG TABLET (FP) PO SCH ×2 (09:17→22:35)
[2023-02-16] MEDS: PANTOPRAZOLE 40 MG TABLET PO SCH (09:17)
[2023-02-16] MEDS ORDERED: SODIUM CHLORIDE 250 ML IV PRN (10:40)
[2023-02-16 10:51] LABS: ERYTHROCYTE SEDIMENTATION RATE 69 mm/hr (0-30)
[2023-02-16] MEDS: INSULIN SLIDING SCALE (NOVOLOG) 1 VIAL SQ SCH ×2 (11:18→16:55)
[2023-02-16] MEDS ORDERED: REMDESIVIR 200 MG in SODIUM CHLORIDE 250 ML IVPB ONE (13:00)
[2023-02-16 18:32] LABS: CHOLESTEROL 168 mg/dL (50-200); LDL CHOLESTEROL (ONLY SJRH) 103 mg/dL (5-100)
[2023-02-16 18:34] LABS: HDL CHOLESTEROL 36 mg/dL (40-60)
[2023-02-16 18:36] LABS: N-TERMINAL BNP 8567.6 pg/ml (5-125)
[2023-02-17] MEDS: INSULIN SLIDING SCALE (NOVOLOG) 1 VIAL SQ SCH ×3 (06:42→18:02)
[2023-02-17 09:14] LABS: BASO % 0.3 % (0-2.0); EOS % 0.3 % (0-4.5); HEMATOCRIT 32.3 % (32.4-45.2); HEMOGLOBIN 10.6 GM/dL (10.7-15.3); LYMPH % 23.9 % (8-40); MCH 32.3 pg (25.7-33.7); MCHC 32.9 g/dl (32.0-36.0); MEAN CELL VOLUME 98.2 fl (80-96); MEAN PLT VOLUME 10.1 fl (7.5-11.1); MONO % 9.8 % (3.8-10.2); NEUT % 65.7 % (42.8-82.8); PLATELET COUNT 184 10^3/uL (134-434); RBC 3.29 M/mm3 (3.60-5.2); RDW 14.3 % (11.6-15.6); WHITE BLOOD COUNT 4.4 K/mm3 (4.0-10.0)
[2023-02-17 09:37] LABS: POTASSIUM 3.9 mmol/L (3.5-5.1)
[2023-02-17 09:39] LABS: CALCIUM 7.8 mg/dL (8.5-10.1)
[2023-02-17 09:41] LABS: BLOOD UREA NITROGEN 39.3 mg/dL (7-18)
[2023-02-17 09:43] LABS: CREATININE 5.8 mg/dL (0.55-1.3)
[2023-02-17] MEDS: LABETALOL HCL 100 MG TABLET (FP) PO SCH ×2 (09:49→21:20)
[2023-02-17] MEDS: CARVEDILOL 25 MG TABLET (FP) PO SCH ×2 (09:49→21:21)
[2023-02-17] MEDS: amLODIPine BESYLATE 10 MG TABLET (FP) PO SCH (09:50)
[2023-02-17] MEDS: DEXAMETHASONE SOD PHOSPHATE 4 MG/1 ML VIAL IVPUSH SCH (11:37)
[2023-02-17] MEDS: CHOLECALCIFEROL (VIT D3) 1,000 UNIT (25 MCG) TABLET PO SCH (11:37)
[2023-02-17] MEDS: PANTOPRAZOLE 40 MG TABLET PO SCH (11:37)
[2023-02-17] MEDS: ASPIRIN COATED 81 MG TABLET.EC PO SCH (11:37)
[2023-02-17] MEDS: APIXABAN 2.5 MG TABLET PO SCH ×2 (11:37→21:21)
[2023-02-17] MEDS: REMDESIVIR 100 MG in SODIUM CHLORIDE 250 ML IVPB SCH (14:07)
[2023-02-18] MEDS: INSULIN SLIDING SCALE (NOVOLOG) 1 VIAL SQ SCH ×5 (06:19→21:21)
[2023-02-18] MEDS ORDERED: INSULIN SLIDING SCALE (NOVOLOG) 1 VIAL SQ SCH (07:00)
[2023-02-18] MEDS ORDERED: SODIUM CHLORIDE 250 ML IV PRN (07:25)
[2023-02-18 08:38] LABS: BASO % 0.2 % (0-2.0); EOS % 0.2 % (0-4.5); HEMATOCRIT 31.1 % (32.4-45.2); HEMOGLOBIN 10.3 GM/dL (10.7-15.3); LYMPH % 23.7 % (8-40); MCH 32.8 pg (25.7-33.7); MCHC 33.3 g/dl (32.0-36.0); MEAN CELL VOLUME 98.3 fl (80-96); MEAN PLT VOLUME 9.6 fl (7.5-11.1); MONO % 5.2 % (3.8-10.2); NEUT % 70.7 % (42.8-82.8); PLATELET COUNT 190 10^3/uL (134-434); RBC 3.16 M/mm3 (3.60-5.2); RDW 13.9 % (11.6-15.6); WHITE BLOOD COUNT 4.9 K/mm3 (4.0-10.0)
[2023-02-18 08:48] LABS: CHLORIDE 96 mmol/L (98-107); POTASSIUM 4.1 mmol/L (3.5-5.1); SODIUM 136 mmol/L (136-145)
[2023-02-18 08:50] LABS: ANION GAP 13 MMOL/L (8-16); BLOOD UREA NITROGEN 64.3 mg/dL (7-18); CALCIUM 7.4 mg/dL (8.5-10.1); CO2 26 mmol/L (21-32); GLUCOSE,RANDOM 292 mg/dL (74-106)
[2023-02-18 09:01] LABS: CREATININE 7.5 mg/dL (0.55-1.3)
[2023-02-18] MEDS ORDERED: EPOETIN ALFA-EPBX 3,000 UNIT/ML VIAL IVPUSH ONE (09:45)
[2023-02-18] MEDS: APIXABAN 2.5 MG TABLET PO SCH ×2 (10:01→21:20)
[2023-02-18] MEDS: amLODIPine BESYLATE 10 MG TABLET (FP) PO SCH (10:01)
[2023-02-18] MEDS: LABETALOL HCL 100 MG TABLET (FP) PO SCH ×2 (10:01→21:20)
[2023-02-18] MEDS: CARVEDILOL 25 MG TABLET (FP) PO SCH ×2 (10:01→21:20)
[2023-02-18] MEDS: CHOLECALCIFEROL (VIT D3) 1,000 UNIT (25 MCG) TABLET PO SCH (10:01)
[2023-02-18] MEDS: ASPIRIN COATED 81 MG TABLET.EC PO SCH (10:01)
[2023-02-18] MEDS: DEXAMETHASONE SOD PHOSPHATE 4 MG/1 ML VIAL IVPUSH SCH (10:01)
[2023-02-18] MEDS: PANTOPRAZOLE 40 MG TABLET PO SCH (10:02)
[2023-02-18 10:56] LABS: ERYTHROCYTE SEDIMENTATION RATE 25 mm/hr (0-30)
[2023-02-18] MEDS: REMDESIVIR 100 MG in SODIUM CHLORIDE 250 ML IVPB SCH (13:53)
[2023-02-18 20:43] LABS: SGPT/ALT 17 U/L (13-61)
[2023-02-18] MEDS: ATORVASTATIN CA 20 MG TABLET (FP) PO SCH (21:21)
[2023-02-19] MEDS: INSULIN SLIDING SCALE (NOVOLOG) 1 VIAL SQ SCH ×4 (06:14→22:31)
[2023-02-19] MEDS: DEXAMETHASONE SOD PHOSPHATE 4 MG/1 ML VIAL IVPUSH SCH (10:59)
[2023-02-19] MEDS: ASPIRIN COATED 81 MG TABLET.EC PO SCH (10:59)
[2023-02-19] MEDS: LABETALOL HCL 100 MG TABLET (FP) PO SCH ×2 (10:59→22:34)
[2023-02-19] MEDS: PANTOPRAZOLE 40 MG TABLET PO SCH (10:59)
[2023-02-19] MEDS: CHOLECALCIFEROL (VIT D3) 1,000 UNIT (25 MCG) TABLET PO SCH (10:59)
[2023-02-19] MEDS: CARVEDILOL 25 MG TABLET (FP) PO SCH ×2 (10:59→21:07)
[2023-02-19] MEDS: APIXABAN 2.5 MG TABLET PO SCH ×2 (10:59→22:34)
[2023-02-19] MEDS: amLODIPine BESYLATE 10 MG TABLET (FP) PO SCH (10:59)
[2023-02-19 11:39] LABS: CHOLESTEROL 163 mg/dL (50-200)
[2023-02-19 11:40] LABS: LDL CHOLESTEROL (ONLY SJRH) 87 mg/dL (5-100)
[2023-02-19 11:43] LABS: HDL CHOLESTEROL 46 mg/dL (40-60)
[2023-02-19] MEDS: REMDESIVIR 100 MG in SODIUM CHLORIDE 250 ML IVPB SCH (13:45)
[2023-02-19] MEDS ORDERED: INSULIN SLIDING SCALE (NOVOLOG) 1 VIAL SQ SCH (16:54)
[2023-02-19 20:56] VITALS: RESP 16
[2023-02-19] MEDS ORDERED: INSULIN REGULAR HUMAN 100 UNITS/ML *VIAL SQ ONE (21:30)
[2023-02-19] MEDS ORDERED: INSULIN (NOVOLOG) ASPART 100 UNITS/ML 10ML VIAL SQ ONE (22:07)
[2023-02-19] MEDS: ATORVASTATIN CA 20 MG TABLET (FP) PO SCH (22:37)
[2023-02-20] MEDS: INSULIN SLIDING SCALE (NOVOLOG) 1 VIAL SQ SCH ×4 (01:39→10:09)
[2023-02-20 05:19] VITALS: TEMP 97.6
[2023-02-20 09:55] VITALS: BP 126/64; PULSE 59
[2023-02-20] MEDS: DEXAMETHASONE SOD PHOSPHATE 4 MG/1 ML VIAL IVPUSH SCH (10:05)
[2023-02-20] MEDS: CHOLECALCIFEROL (VIT D3) 1,000 UNIT (25 MCG) TABLET PO SCH (10:05)
[2023-02-20] MEDS: amLODIPine BESYLATE 10 MG TABLET (FP) PO SCH (10:05)
[2023-02-20] MEDS: ASPIRIN COATED 81 MG TABLET.EC PO SCH (10:06)
[2023-02-20] MEDS: CARVEDILOL 25 MG TABLET (FP) PO SCH (10:06)
[2023-02-20] MEDS: APIXABAN 2.5 MG TABLET PO SCH (10:06)
[2023-02-20] MEDS: LABETALOL HCL 100 MG TABLET (FP) PO SCH (10:09)
[2023-02-20] MEDS: PANTOPRAZOLE 40 MG TABLET PO SCH (11:31)
[2023-02-20] MEDS: REMDESIVIR 100 MG in SODIUM CHLORIDE 250 ML IVPB SCH (12:07)
== END 2023-02-20 13:55 | disposition home or self-care (01) | DRG 177 ==
LOC: JER 03:54 → JERBED 04:26 → OBSVTOIN 08:19 → J4S 11:55
PROVIDERS: ADMIT Internal Medicine; ATTEND Internal Medicine
PROC: XW033E5 Introduction of Remdesivir Anti-infective into Peripheral Vein, Percutaneous Approach, New Technology Group 5 (ICD-10-PCS; principal; 2023-02-16)
PROC: 5A1D70Z Performance of Urinary Filtration, Intermittent, Less than 6 Hours Per Day (ICD-10-PCS; 2023-02-18)
DX: U07.1 COVID-19 (principal); N18.6 End stage renal disease; I50.32 Chronic diastolic (congestive) heart failure; I13.2 Hypertensive heart and chronic kidney disease with heart failure and with stage 5 chronic kidney disease, or end stage renal disease; J98.11 Atelectasis; I25.10 Atherosclerotic heart disease of native coronary artery without angina pectoris; J45.909 Unspecified asthma, uncomplicated; R09.02 Hypoxemia; M19.90 Unspecified osteoarthritis, unspecified site; I27.20 Pulmonary hypertension, unspecified; E11.22 Type 2 diabetes mellitus with diabetic chronic kidney disease; E78.5 Hyperlipidemia, unspecified; E83.51 Hypocalcemia; R07.9 Chest pain, unspecified; E83.39 Other disorders of phosphorus metabolism; E66.9 Obesity, unspecified; Z68.32 Body mass index [BMI] 32.0-32.9, adult; Z95.1 Presence of aortocoronary bypass graft; Z99.2 Dependence on renal dialysis
CPT/HCPCS: 0241U-QW; 36415; 71045-TC-FY; 71275-TC; 74176-TC; 80048; 80053; 80061; 82728; 82962; 83036; 83540; 83550; 83735; 83880; 84100; 84443; 84460; 84484; 85025; 85610; 85651; 85730; 86140; 86704; 86705; 86803; 87340; 87517; 93005; 93010; 97116-GP; 97161-GP; 99285-25; C9399; G0378; Q5106; Q9967

== ENCOUNTER 2023-04-04 09:55 | Inpatient (IN) | payer OTHER ==
[2023-04-04] MEDS ORDERED: SODIUM CHLORIDE 0.9% 500 ML INFUS.BAG IV ONE (11:17)
[2023-04-04 11:57] LABS: VENOUS BASE EXCESS 0.5 mmol/L (-2-2); VENOUS O2 SATURATION 36.5 % (70-80); VENOUS PCO2 46.2 mmHg (38-52); VENOUS PH 7.372 (7.310-7.410)
[2023-04-04 12:10] LABS: BASO % 0.7 % (0-2.0); HEMATOCRIT 31.4 % (32.4-45.2); HEMOGLOBIN 10.4 GM/dL (10.7-15.3); LYMPH % 8.1 % (8-40); MCH 32.1 pg (25.7-33.7); MEAN CELL VOLUME 97.3 fl (80-96); MEAN PLT VOLUME 8.9 fl (7.5-11.1); MONO % 6.4 % (3.8-10.2); NEUT % 84.8 % (42.8-82.8); PLATELET COUNT 259 10^3/uL (134-434); RBC 3.22 M/mm3 (3.60-5.2); RDW 14.4 % (11.6-15.6); WHITE BLOOD COUNT 6.9 K/mm3 (4.0-10.0)
[2023-04-04] MEDS ORDERED: SODIUM CHLORIDE 250 ML IV PRN (12:37)
[2023-04-04 12:43] LABS: CHLORIDE 93 mmol/L (98-107); SODIUM 131 mmol/L (136-145)
[2023-04-04 12:45] LABS: BLOOD UREA NITROGEN 38.7 mg/dL (7-18)
[2023-04-04 12:46] LABS: ANION GAP 13 mmol/L (4-13); CALCIUM 8.7 mg/dL (8.5-10.1); CO2 25 mmol/L (21-32); GLUCOSE,RANDOM 165 mg/dL (74-106); LIPASE 33 U/L (73-393)
[2023-04-04 12:48] LABS: SGOT/AST 46 U/L (15-37)
[2023-04-04 12:50] LABS: BILIRUBIN,TOTAL 0.6 mg/dL (0.2-1); SGPT/ALT 17 U/L (13-61)
[2023-04-04 12:51] LABS: ALK PHOS 64 U/L (45-117); CREATININE 8.8 mg/dL (0.55-1.3); TOT PROT 6.9 g/dl (6.4-8.2)
[2023-04-04] MEDS ORDERED: VANCOMYCIN 1,000 MG in DEXTROSE 5%-WATER - 250 ML IVPB ONE (13:03)
[2023-04-04] MEDS ORDERED: PIPERACILLIN/TAZOB 4.5 GM 4.5 GM in DEXTROSE 5%-WATER 100 ML IVPB ONE (13:03)
[2023-04-04] MEDS ORDERED: PIPERACILLIN/TAZOB 4.5 GM 4.5 GM/100 ML BAG IVPB ONE (14:24)
[2023-04-04] MEDS ORDERED: VANCOMYCIN 1 GRAM (PRE-DOCKED) 1,000 MG/250 ML BAG IVPB ONE (14:24)
[2023-04-04] MEDS ORDERED: PANTOPRAZOLE 40 MG TABLET PO SCH (17:45)
[2023-04-04] MEDS ORDERED: DEXTROSE 5%-0.45% SALINE 1,000 ML IV SCH ×2 (17:45→21:32)
[2023-04-04] MEDS ORDERED: PANTOPRAZOLE SODIUM 40 MG VIAL ONE (17:58)
[2023-04-04] MEDS: PANTOPRAZOLE SODIUM 40 MG VIAL IVPUSH SCH (18:10)
[2023-04-04] MEDS: INSULIN SLIDING SCALE (NOVOLOG) 1 VIAL SQ SCH (18:36)
[2023-04-04] MEDS ORDERED: ONDANSETRON 4 MG/2 ML VIAL IVPUSH PRN (20:39)
[2023-04-04] MEDS ORDERED: ACETAMINOPHEN 1000 MG/100 ML BAG IVPB PRN (20:40)
[2023-04-04] MEDS: HEPARIN NA (PORCINE) 5,000 UNITS/ML 1ML VIAL SQ SCH (22:00)
[2023-04-05 05:36] VITALS: BMI 31.4
[2023-04-05] MEDS: HEPARIN NA (PORCINE) 5,000 UNITS/ML 1ML VIAL SQ SCH ×3 (06:48→21:26)
[2023-04-05] MEDS: INSULIN SLIDING SCALE (NOVOLOG) 1 VIAL SQ SCH ×3 (06:52→17:02)
[2023-04-05] MEDS: PANTOPRAZOLE SODIUM 40 MG VIAL IVPUSH SCH (09:07)
[2023-04-05 10:43] LABS: BASO % 0.8 % (0-2.0); EOS % 0.6 % (0-4.5); HEMATOCRIT 25.9 % (32.4-45.2); HEMOGLOBIN 8.8 GM/dL (10.7-15.3); LYMPH % 14.6 % (8-40); MCH 32.2 pg (25.7-33.7); MEAN CELL VOLUME 94.8 fl (80-96); PLATELET COUNT 214 10^3/uL (134-434); RBC 2.73 M/mm3 (3.60-5.2); RDW 14.8 % (11.6-15.6); WHITE BLOOD COUNT 5.9 K/mm3 (4.0-10.0)
[2023-04-05 11:10] LABS: CHLORIDE 95 mmol/L (98-107); POTASSIUM 4.1 mmol/L (3.5-5.1); SODIUM 132 mmol/L (136-145)
[2023-04-05 11:15] LABS: ANION GAP 12 mmol/L (4-13); BLOOD UREA NITROGEN 48.1 mg/dL (7-18); CO2 25 mmol/L (21-32); GLUCOSE,RANDOM 129 mg/dL (74-106)
[2023-04-05 11:17] LABS: MAGNESIUM 2.2 mg/dL (1.8-2.4); PHOSPHOROUS 4.8 mg/dL (2.5-4.9)
[2023-04-05 11:24] LABS: CREATININE 9.7 mg/dL (0.55-1.3)
[2023-04-05] MEDS: COLLAGENASE CLOSTRIDIUM HIST. 30 GRAMS TUBE TP SCH (13:30)
[2023-04-05] MEDS ORDERED: IRON SUCROSE INJECTION 300 MG in SODIUM CHLORIDE 235 ML IVPB ONE (14:00)
[2023-04-05] MEDS ORDERED: VANCOMYCIN 500 MG in DEXTROSE 5%-WATER 100 ML IVPB ONE (17:00)
[2023-04-05] MEDS ORDERED: EPOETIN ALFA-EPBX 20,000 UNIT/ML VIAL SQ ONE (17:00)
[2023-04-05] MEDS ORDERED: SODIUM CHLORIDE 250 ML IV PRN (17:03)
[2023-04-05] MEDS: PIPERACILLIN/TAZOB 2.25 GM 2.25 GM in DEXTROSE 5%-WATER - 50 ML IVPB SCH (17:38)
[2023-04-06] MEDS: PIPERACILLIN/TAZOB 2.25 GM 2.25 GM in DEXTROSE 5%-WATER - 50 ML IVPB SCH ×3 (01:08→19:38)
[2023-04-06] MEDS: HEPARIN NA (PORCINE) 5,000 UNITS/ML 1ML VIAL SQ SCH ×3 (05:56→21:01)
[2023-04-06] MEDS: INSULIN SLIDING SCALE (NOVOLOG) 1 VIAL SQ SCH ×3 (06:26→16:53)
[2023-04-06] MEDS ORDERED: INSULIN (NOVOLOG) ASPART 100 UNITS/ML 10ML VIAL ONE (07:05)
[2023-04-06 08:33] LABS: EOS % 1.9 % (0-4.5); HEMATOCRIT 27.5 % (32.4-45.2); HEMOGLOBIN 9.3 GM/dL (10.7-15.3); LYMPH % 17.2 % (8-40); MCH 32.3 pg (25.7-33.7); MCHC 33.7 g/dl (32.0-36.0); MEAN CELL VOLUME 95.7 fl (80-96); MEAN PLT VOLUME 8.8 fl (7.5-11.1); MONO % 13.6 % (3.8-10.2); NEUT % 66.3 % (42.8-82.8); PLATELET COUNT 207 10^3/uL (134-434); RBC 2.88 M/mm3 (3.60-5.2); RDW 14.9 % (11.6-15.6); WHITE BLOOD COUNT 4.9 K/mm3 (4.0-10.0)
[2023-04-06 08:56] LABS: POTASSIUM 3.6 mmol/L (3.5-5.1)
[2023-04-06 08:58] LABS: CALCIUM 8.1 mg/dL (8.5-10.1)
[2023-04-06 09:02] LABS: CREATININE 5.7 mg/dL (0.55-1.3)
[2023-04-06] MEDS: PANTOPRAZOLE 40 MG TABLET PO SCH (09:53)
[2023-04-06] MEDS: COLLAGENASE CLOSTRIDIUM HIST. 30 GRAMS TUBE TP SCH (09:54)
[2023-04-06] MEDS ORDERED: VANCOMYCIN/WATER FOR INJ (PEG) 1,000 MG/200 ML BAG IVPB ONE (17:27)
[2023-04-07] MEDS: PIPERACILLIN/TAZOB 2.25 GM 2.25 GM in DEXTROSE 5%-WATER - 50 ML IVPB SCH ×2 (01:31→09:17)
[2023-04-07] MEDS: HEPARIN NA (PORCINE) 5,000 UNITS/ML 1ML VIAL SQ SCH ×3 (06:35→21:52)
[2023-04-07] MEDS: INSULIN SLIDING SCALE (NOVOLOG) 1 VIAL SQ SCH ×3 (06:44→17:19)
[2023-04-07] MEDS: PANTOPRAZOLE 40 MG TABLET PO SCH (09:16)
[2023-04-07] MEDS: COLLAGENASE CLOSTRIDIUM HIST. 30 GRAMS TUBE TP SCH (09:23)
[2023-04-07 10:00] LABS: EOS % 2.2 % (0-4.5); HEMATOCRIT 27.6 % (32.4-45.2); HEMOGLOBIN 9.1 GM/dL (10.7-15.3); LYMPH % 18.9 % (8-40); MCH 31.5 pg (25.7-33.7); MEAN CELL VOLUME 95.7 fl (80-96); MEAN PLT VOLUME 8.7 fl (7.5-11.1); MONO % 12.9 % (3.8-10.2); PLATELET COUNT 217 10^3/uL (134-434); RBC 2.89 M/mm3 (3.60-5.2); RDW 14.7 % (11.6-15.6); WHITE BLOOD COUNT 5.3 K/mm3 (4.0-10.0)
[2023-04-07 10:06] LABS: POTASSIUM 3.6 mmol/L (3.5-5.1)
[2023-04-07 10:09] LABS: BLOOD UREA NITROGEN 17.2 mg/dL (7-18)
[2023-04-07 10:11] LABS: CREATININE 4.6 mg/dL (0.55-1.3)
[2023-04-07] MEDS: CEFAZOLIN 1 GM in DEXTROSE 5%-WATER - 50 ML IVPB SCH (15:02)
[2023-04-07] MEDS ORDERED: EPOETIN ALFA-EPBX 4,000 UNIT/ML VIAL IVPUSH ONE (18:08)
[2023-04-08] MEDS: HEPARIN NA (PORCINE) 5,000 UNITS/ML 1ML VIAL SQ SCH ×3 (06:16→21:33)
[2023-04-08] MEDS: INSULIN SLIDING SCALE (NOVOLOG) 1 VIAL SQ SCH ×3 (07:01→16:30)
[2023-04-08] MEDS: PANTOPRAZOLE 40 MG TABLET PO SCH (08:59)
[2023-04-08] MEDS: CEFAZOLIN 1 GM in DEXTROSE 5%-WATER - 50 ML IVPB SCH (08:59)
[2023-04-08 09:58] LABS: BASO % 1.1 % (0-2.0); EOS % 2.2 % (0-4.5); HEMATOCRIT 27.9 % (32.4-45.2); HEMOGLOBIN 9.3 GM/dL (10.7-15.3); LYMPH % 22.8 % (8-40); MCH 32.2 pg (25.7-33.7); MCHC 33.5 g/dl (32.0-36.0); MEAN CELL VOLUME 96.2 fl (80-96); MEAN PLT VOLUME 8.8 fl (7.5-11.1); MONO % 8.9 % (3.8-10.2); PLATELET COUNT 250 10^3/uL (134-434); RDW 14.7 % (11.6-15.6); WHITE BLOOD COUNT 5.6 K/mm3 (4.0-10.0)
[2023-04-08 10:18] LABS: POTASSIUM 4.1 mmol/L (3.5-5.1)
[2023-04-08 10:31] LABS: CALCIUM 8.7 mg/dL (8.5-10.1); CREATININE 6.5 mg/dL (0.55-1.3)
[2023-04-08] MEDS: COLLAGENASE CLOSTRIDIUM HIST. 30 GRAMS TUBE TP SCH (11:42)
[2023-04-08] MEDS ORDERED: IRON SUCROSE INJECTION 300 MG in SODIUM CHLORIDE 235 ML IVPB ONE (12:00)
[2023-04-08] MEDS ORDERED: SODIUM CHLORIDE 250 ML IV PRN (14:17)
[2023-04-08] MEDS ORDERED: EPOETIN ALFA-EPBX 20,000 UNIT/ML VIAL SQ ONE (14:30)
[2023-04-08] MEDS ORDERED: EPOETIN ALFA 10,000 UNIT/1 ML VIAL SQ ONE (17:00)
[2023-04-08] MEDS: ACETAMINOPHEN 325 MG TABLET (FP) PO PRN (21:32)
[2023-04-09] MEDS: INSULIN SLIDING SCALE (NOVOLOG) 1 VIAL SQ SCH ×3 (07:53→17:37)
[2023-04-09] MEDS ORDERED: INSULIN (NOVOLOG) ASPART 100 UNITS/ML 10ML VIAL ONE ×2 (08:10→17:37)
[2023-04-09 09:32] LABS: BASO % 0.9 % (0-2.0); EOS % 2.2 % (0-4.5); HEMATOCRIT 26.8 % (32.4-45.2); HEMOGLOBIN 8.7 GM/dL (10.7-15.3); LYMPH % 16.4 % (8-40); MCH 31.6 pg (25.7-33.7); MCHC 32.3 g/dl (32.0-36.0); MEAN CELL VOLUME 97.7 fl (80-96); MEAN PLT VOLUME 8.7 fl (7.5-11.1); MONO % 8.7 % (3.8-10.2); NEUT % 71.8 % (42.8-82.8); PLATELET COUNT 244 10^3/uL (134-434); RBC 2.75 M/mm3 (3.60-5.2); RDW 14.8 % (11.6-15.6); WHITE BLOOD COUNT 5.4 K/mm3 (4.0-10.0)
[2023-04-09 09:35] LABS: POTASSIUM 3.6 mmol/L (3.5-5.1)
[2023-04-09 09:40] LABS: CALCIUM 7.7 mg/dL (8.5-10.1)
[2023-04-09 09:44] LABS: CREATININE 4.7 mg/dL (0.55-1.3)
[2023-04-09] MEDS: COLLAGENASE CLOSTRIDIUM HIST. 30 GRAMS TUBE TP SCH (09:50)
[2023-04-09] MEDS: PANTOPRAZOLE 40 MG TABLET PO SCH (09:51)
[2023-04-09] MEDS: CEFAZOLIN 1 GM in DEXTROSE 5%-WATER - 50 ML IVPB SCH (09:51)
[2023-04-09] MEDS: HEPARIN NA (PORCINE) 5,000 UNITS/ML 1ML VIAL SQ SCH ×3 (17:38→21:21)
[2023-04-09] MEDS: ACETAMINOPHEN 325 MG TABLET (FP) PO PRN (19:52)
[2023-04-10] MEDS: HEPARIN NA (PORCINE) 5,000 UNITS/ML 1ML VIAL SQ SCH ×2 (05:34→05:53)
[2023-04-10] MEDS: INSULIN SLIDING SCALE (NOVOLOG) 1 VIAL SQ SCH ×3 (06:01→17:46)
[2023-04-10] MEDS: PANTOPRAZOLE 40 MG TABLET PO SCH (09:12)
[2023-04-10] MEDS: CEFAZOLIN 1 GM in DEXTROSE 5%-WATER - 50 ML IVPB SCH (09:12)
[2023-04-10] MEDS: COLLAGENASE CLOSTRIDIUM HIST. 30 GRAMS TUBE TP SCH (09:13)
[2023-04-10 10:40] LABS: EOS % 2.7 % (0-4.5); HEMATOCRIT 26.5 % (32.4-45.2); HEMOGLOBIN 8.9 GM/dL (10.7-15.3); LYMPH % 21.3 % (8-40); MCH 32.2 pg (25.7-33.7); MCHC 33.5 g/dl (32.0-36.0); MEAN CELL VOLUME 96.1 fl (80-96); MEAN PLT VOLUME 8.6 fl (7.5-11.1); MONO % 8.2 % (3.8-10.2); NEUT % 66.8 % (42.8-82.8); PLATELET COUNT 261 10^3/uL (134-434); RBC 2.75 M/mm3 (3.60-5.2); RDW 14.9 % (11.6-15.6); WHITE BLOOD COUNT 6.1 K/mm3 (4.0-10.0)
[2023-04-10 10:42] LABS: PROTHROMBIN TIME (PATIENT) 11.6 SEC (9.7-13.0)
[2023-04-10 10:47] LABS: POTASSIUM 3.8 mmol/L (3.5-5.1)
[2023-04-10 10:51] LABS: BLOOD UREA NITROGEN 29.7 mg/dL (7-18)
[2023-04-10 10:54] LABS: CREATININE 6.2 mg/dL (0.55-1.3)
[2023-04-10] MEDS ORDERED: EPOETIN ALFA-EPBX 4,000 UNIT/ML VIAL SQ ONE (13:49)
[2023-04-10] MEDS ORDERED: SODIUM CHLORIDE 250 ML IV PRN ×2 (13:49→17:55)
[2023-04-10] MEDS ORDERED: LIDOCAINE HCL 1%, 10 MG/ML (20ML VIAL) ONE (14:24)
[2023-04-10] MEDS ORDERED: HEPARIN NA (PORCINE) 5,000 UNITS/ML 1ML VIAL ONE (14:25)
[2023-04-10] MEDS ORDERED: HEPARIN NA (PORCINE) 5,000 UNITS/ML 1ML VIAL SQ ONE (15:26)
[2023-04-10] MEDS ORDERED: LIDOCAINE HCL 1%, 10 MG/ML (20ML VIAL) NR ONE ×3 (15:26→16:46)
[2023-04-10] MEDS ORDERED: MIDAZOLAM HCL 2 MG/2 ML SINGLE DOSE VIAL ONE (15:50)
[2023-04-10] MEDS ORDERED: FENTANYL CITRATE/PF 50 MCG/ML VIAL ONE (16:39)
[2023-04-10] MEDS ORDERED: SUCCINYLCHOLINE CHLORIDE 200 MG/10 ML SYRINGE ONE (16:41)
[2023-04-10] MEDS ORDERED: LACTATED RINGERS SOLUTION 1,000 ML IV SCH (17:30)
[2023-04-10] MEDS ORDERED: EPOETIN ALFA 10,000 UNIT/1 ML VIAL SQ ONE (17:55)
[2023-04-10] MEDS: LACTATED RINGERS SOLUTION 1,000 ML IV SCH (19:45)
[2023-04-11] MEDS: ACETAMINOPHEN 325 MG TABLET (FP) PO PRN (00:14)
[2023-04-11] MEDS: INSULIN SLIDING SCALE (NOVOLOG) 1 VIAL SQ SCH ×3 (06:13→17:50)
[2023-04-11] MEDS ORDERED: EPOETIN ALFA-EPBX 4,000 UNIT/ML VIAL IVPUSH ONE (08:00)
[2023-04-11 09:00] LABS: BASO % 1.4 % (0-2.0); EOS % 3.7 % (0-4.5); HEMATOCRIT 25.9 % (32.4-45.2); HEMOGLOBIN 8.3 GM/dL (10.7-15.3); LYMPH % 18.9 % (8-40); MCH 31.8 pg (25.7-33.7); MEAN CELL VOLUME 99.1 fl (80-96); MEAN PLT VOLUME 8.6 fl (7.5-11.1); MONO % 9.1 % (3.8-10.2); NEUT % 66.9 % (42.8-82.8); PLATELET COUNT 277 10^3/uL (134-434); RBC 2.62 M/mm3 (3.60-5.2); RDW 14.9 % (11.6-15.6); WHITE BLOOD COUNT 5.1 K/mm3 (4.0-10.0)
[2023-04-11 09:24] LABS: POTASSIUM 4.3 mmol/L (3.5-5.1)
[2023-04-11 09:30] LABS: BLOOD UREA NITROGEN 37.7 mg/dL (7-18); CALCIUM 8.1 mg/dL (8.5-10.1)
[2023-04-11 09:33] LABS: CREATININE 7.4 mg/dL (0.55-1.3)
[2023-04-11] MEDS ORDERED: IRON SUCROSE INJECTION 300 MG in SODIUM CHLORIDE 235 ML IVPB ONE (11:00)
[2023-04-11] MEDS ORDERED: ceFAZolin SODIUM 1 GM VIAL ONE (12:16)
[2023-04-11] MEDS ORDERED: INSULIN (NOVOLOG) ASPART 100 UNITS/ML 10ML VIAL ONE (12:59)
[2023-04-11] MEDS: HEPARIN NA (PORCINE) 5,000 UNITS/ML 1ML VIAL SQ SCH ×2 (13:00→22:32)
[2023-04-11] MEDS: CEFAZOLIN 1 GM in DEXTROSE 5%-WATER - 50 ML IVPB SCH (13:02)
[2023-04-11] MEDS: PANTOPRAZOLE 40 MG TABLET PO SCH (13:09)
[2023-04-11] MEDS: COLLAGENASE CLOSTRIDIUM HIST. 30 GRAMS TUBE TP SCH (13:09)
[2023-04-11] MEDS ORDERED: EPOETIN ALFA 10,000 UNIT/1 ML VIAL SQ ONE (15:00)
[2023-04-11] MEDS: LACTATED RINGERS SOLUTION 1,000 ML IV SCH (18:23)
[2023-04-12] MEDS: HEPARIN NA (PORCINE) 5,000 UNITS/ML 1ML VIAL SQ SCH (05:19)
[2023-04-12] MEDS: INSULIN SLIDING SCALE (NOVOLOG) 1 VIAL SQ SCH ×3 (06:24→16:51)
[2023-04-12] MEDS: PANTOPRAZOLE 40 MG TABLET PO SCH (09:19)
[2023-04-12] MEDS: CEFAZOLIN 1 GM in DEXTROSE 5%-WATER - 50 ML IVPB SCH (09:19)
[2023-04-12] MEDS: COLLAGENASE CLOSTRIDIUM HIST. 30 GRAMS TUBE TP SCH (09:23)
[2023-04-12 10:26] LABS: BASO % 1.3 % (0-2.0); EOS % 3.7 % (0-4.5); HEMATOCRIT 26.4 % (32.4-45.2); HEMOGLOBIN 8.9 GM/dL (10.7-15.3); LYMPH % 25.1 % (8-40); MCH 32.7 pg (25.7-33.7); MCHC 33.6 g/dl (32.0-36.0); MEAN CELL VOLUME 97.4 fl (80-96); MEAN PLT VOLUME 8.7 fl (7.5-11.1); MONO % 10.6 % (3.8-10.2); NEUT % 59.3 % (42.8-82.8); PLATELET COUNT 274 10^3/uL (134-434); RBC 2.71 M/mm3 (3.60-5.2); WHITE BLOOD COUNT 4.6 K/mm3 (4.0-10.0)
[2023-04-12 10:33] LABS: INR 1.05 (0.83-1.09); PROTHROMBIN TIME (PATIENT) 12.2 SEC (9.7-13.0)
[2023-04-12 10:46] LABS: POTASSIUM 3.5 mmol/L (3.5-5.1)
[2023-04-12 11:44] LABS: BLOOD UREA NITROGEN 18.6 mg/dL (7-18)
[2023-04-12 11:47] LABS: CREATININE 5.1 mg/dL (0.55-1.3)
[2023-04-12] MEDS ORDERED: INSULIN (NOVOLOG) ASPART 100 UNITS/ML 10ML VIAL ONE (16:51)
[2023-04-12] MEDS: LACTATED RINGERS SOLUTION 1,000 ML IV SCH (16:54)
[2023-04-13] MEDS: INSULIN SLIDING SCALE (NOVOLOG) 1 VIAL SQ SCH ×3 (06:32→16:22)
[2023-04-13] MEDS ORDERED: ROCURONIUM BROMIDE 50 MG/5 ML SYRINGE ONE (07:07)
[2023-04-13] MEDS ORDERED: SUCCINYLCHOLINE CHLORIDE 200 MG/10 ML SYRINGE ONE (07:08)
[2023-04-13] MEDS ORDERED: VANCOMYCIN 1,000 MG VIAL (RESTRICTED TO ID ONLY) ONE (07:17)
[2023-04-13] MEDS ORDERED: GENTAMICIN SO4 80 MG/2 ML VIAL ONE (07:17)
[2023-04-13] MEDS ORDERED: BUPIVACAINE HCL/PF 0.5% (5MG/ML) 10 ML VIAL ONE (07:17)
[2023-04-13] MEDS ORDERED: LIDOCAINE HCL 1%, 10 MG/ML (20ML VIAL) ONE (07:17)
[2023-04-13] MEDS ORDERED: MIDAZOLAM HCL 2 MG/2 ML SINGLE DOSE VIAL ONE (07:24)
[2023-04-13] MEDS ORDERED: FENTANYL CITRATE/PF 50 MCG/ML VIAL ONE (07:35)
[2023-04-13] MEDS ORDERED: LIDOCAINE HCL 1%, 10 MG/ML (20ML VIAL) INF ONE (07:36)
[2023-04-13] MEDS ORDERED: ceFAZolin SODIUM 1 GM VIAL IVPB ONE (07:36)
[2023-04-13] MEDS ORDERED: BUPIVACAINE HCL/PF 0.5% (5MG/ML) 10 ML VIAL IJ ONE (07:36)
[2023-04-13] MEDS ORDERED: SODIUM CHLORIDE 250 ML IV PRN (08:06)
[2023-04-13] MEDS ORDERED: EPOETIN ALFA-EPBX 10,000 UNIT/ML VIAL IVPUSH ONE (09:00)
[2023-04-13 09:32] LABS: BASO % 1.4 % (0-2.0); EOS % 3.1 % (0-4.5); HEMOGLOBIN 9.1 GM/dL (10.7-15.3); LYMPH % 28.7 % (8-40); MCH 32.6 pg (25.7-33.7); MCHC 33.6 g/dl (32.0-36.0); MEAN CELL VOLUME 96.9 fl (80-96); MEAN PLT VOLUME 8.6 fl (7.5-11.1); MONO % 10.4 % (3.8-10.2); NEUT % 56.4 % (42.8-82.8); PLATELET COUNT 279 10^3/uL (134-434); RBC 2.79 M/mm3 (3.60-5.2); RDW 14.9 % (11.6-15.6); WHITE BLOOD COUNT 4.2 K/mm3 (4.0-10.0)
[2023-04-13 09:42] LABS: CALCIUM 7.9 mg/dL (8.5-10.1)
[2023-04-13 09:43] LABS: BLOOD UREA NITROGEN 25.1 mg/dL (7-18)
[2023-04-13 09:46] LABS: CREATININE 6.7 mg/dL (0.55-1.3)
[2023-04-13] MEDS: COLLAGENASE CLOSTRIDIUM HIST. 30 GRAMS TUBE TP SCH (12:02)
[2023-04-13] MEDS: CEFAZOLIN 1 GM in DEXTROSE 5%-WATER - 50 ML IVPB SCH (13:39)
[2023-04-13] MEDS: PANTOPRAZOLE 40 MG TABLET PO SCH (13:39)
[2023-04-13] MEDS: ACETAMINOPHEN 325 MG TABLET (FP) PO PRN (15:26)
[2023-04-14] MEDS ORDERED: ACETAMINOPHEN 325 MG TABLET (FP) PO PRN (01:20)
[2023-04-14] MEDS ORDERED: EPOETIN ALFA 10,000 UNIT/1 ML VIAL SQ ONE ×2 (01:20)
[2023-04-14] MEDS: INSULIN SLIDING SCALE (NOVOLOG) 1 VIAL SQ SCH ×3 (07:01→17:22)
[2023-04-14] MEDS: PANTOPRAZOLE 40 MG TABLET PO SCH (07:02)
[2023-04-14] MEDS: CEFAZOLIN 1 GM in DEXTROSE 5%-WATER - 50 ML IVPB SCH (09:23)
[2023-04-14 10:09] LABS: BASO % 1.4 % (0-2.0); EOS % 2.7 % (0-4.5); HEMATOCRIT 27.1 % (32.4-45.2); HEMOGLOBIN 8.9 GM/dL (10.7-15.3); LYMPH % 22.3 % (8-40); MCH 32.2 pg (25.7-33.7); MCHC 32.8 g/dl (32.0-36.0); MEAN CELL VOLUME 98.3 fl (80-96); MEAN PLT VOLUME 8.4 fl (7.5-11.1); MONO % 10.5 % (3.8-10.2); NEUT % 63.1 % (42.8-82.8); PLATELET COUNT 268 10^3/uL (134-434); RBC 2.76 M/mm3 (3.60-5.2); RDW 15.6 % (11.6-15.6); WHITE BLOOD COUNT 4.6 K/mm3 (4.0-10.0)
[2023-04-14 10:26] LABS: CALCIUM 7.9 mg/dL (8.5-10.1)
[2023-04-14 10:27] LABS: BLOOD UREA NITROGEN 18.9 mg/dL (7-18)
[2023-04-14 10:30] LABS: CREATININE 4.4 mg/dL (0.55-1.3)
[2023-04-14] MEDS ORDERED: SODIUM CHLORIDE 250 ML IV PRN (11:41)
[2023-04-14] MEDS: COLLAGENASE CLOSTRIDIUM HIST. 30 GRAMS TUBE TP SCH (13:49)
[2023-04-15] MEDS: INSULIN SLIDING SCALE (NOVOLOG) 1 VIAL SQ SCH ×3 (06:15→17:00)
[2023-04-15] MEDS: PANTOPRAZOLE 40 MG TABLET PO SCH (06:15)
[2023-04-15] MEDS: CEFAZOLIN 1 GM in DEXTROSE 5%-WATER - 50 ML IVPB SCH (09:01)
[2023-04-15] MEDS: COLLAGENASE CLOSTRIDIUM HIST. 30 GRAMS TUBE TP SCH (09:01)
[2023-04-15] MEDS ORDERED: EPOETIN ALFA-EPBX 10,000 UNIT/ML VIAL SQ ONE (09:15)
[2023-04-15 09:34] LABS: BASO % 1.7 % (0-2.0); EOS % 3.5 % (0-4.5); HEMATOCRIT 27.6 % (32.4-45.2); HEMOGLOBIN 9.1 GM/dL (10.7-15.3); LYMPH % 26.6 % (8-40); MCH 32.7 pg (25.7-33.7); MCHC 33.2 g/dl (32.0-36.0); MEAN CELL VOLUME 98.7 fl (80-96); MEAN PLT VOLUME 8.4 fl (7.5-11.1); MONO % 9.8 % (3.8-10.2); NEUT % 58.4 % (42.8-82.8); PLATELET COUNT 268 10^3/uL (134-434); RBC 2.79 M/mm3 (3.60-5.2); RDW 15.9 % (11.6-15.6); WHITE BLOOD COUNT 4.2 K/mm3 (4.0-10.0)
[2023-04-15 09:45] LABS: POTASSIUM 4.5 mmol/L (3.5-5.1)
[2023-04-15 09:51] LABS: CALCIUM 8.6 mg/dL (8.5-10.1)
[2023-04-15 09:55] LABS: CREATININE 6.1 mg/dL (0.55-1.3)
[2023-04-16] MEDS: INSULIN SLIDING SCALE (NOVOLOG) 1 VIAL SQ SCH ×3 (06:53→16:56)
[2023-04-16] MEDS: PANTOPRAZOLE 40 MG TABLET PO SCH (06:54)
[2023-04-16 08:37] LABS: BASO % 1.2 % (0-2.0); EOS % 3.1 % (0-4.5); HEMATOCRIT 28.1 % (32.4-45.2); HEMOGLOBIN 9.4 GM/dL (10.7-15.3); LYMPH % 24.8 % (8-40); MCH 33.3 pg (25.7-33.7); MCHC 33.5 g/dl (32.0-36.0); MEAN CELL VOLUME 99.3 fl (80-96); MEAN PLT VOLUME 8.2 fl (7.5-11.1); MONO % 11.6 % (3.8-10.2); NEUT % 59.3 % (42.8-82.8); PLATELET COUNT 230 10^3/uL (134-434); RBC 2.83 M/mm3 (3.60-5.2); RDW 16.7 % (11.6-15.6); WHITE BLOOD COUNT 3.8 K/mm3 (4.0-10.0)
[2023-04-16 09:02] LABS: POTASSIUM 4.3 mmol/L (3.5-5.1)
[2023-04-16 09:05] LABS: BLOOD UREA NITROGEN 23.1 mg/dL (7-18); CALCIUM 8.2 mg/dL (8.5-10.1)
[2023-04-16 09:09] LABS: CREATININE 4.9 mg/dL (0.55-1.3)
[2023-04-16] MEDS: CEFAZOLIN 1 GM in DEXTROSE 5%-WATER - 50 ML IVPB SCH (09:10)
[2023-04-16] MEDS: COLLAGENASE CLOSTRIDIUM HIST. 30 GRAMS TUBE TP SCH (09:14)
[2023-04-16 15:22] VITALS: RESP 18
[2023-04-17] MEDS: INSULIN SLIDING SCALE (NOVOLOG) 1 VIAL SQ SCH ×2 (07:05→12:12)
[2023-04-17] MEDS: PANTOPRAZOLE 40 MG TABLET PO SCH (07:05)
[2023-04-17] MEDS ORDERED: SODIUM CHLORIDE 250 ML IV PRN (10:18)
[2023-04-17] MEDS ORDERED: EPOETIN ALFA-EPBX 4,000 UNIT/ML VIAL SQ ONE (10:18)
[2023-04-17] MEDS: CEFAZOLIN 1 GM in DEXTROSE 5%-WATER - 50 ML IVPB SCH (10:21)
[2023-04-17] MEDS: COLLAGENASE CLOSTRIDIUM HIST. 30 GRAMS TUBE TP SCH (10:23)
[2023-04-17 11:43] LABS: BASO % 1.2 % (0-2.0); EOS % 3.6 % (0-4.5); HEMATOCRIT 27.7 % (32.4-45.2); HEMOGLOBIN 8.8 GM/dL (10.7-15.3); LYMPH % 28.9 % (8-40); MCH 32.5 pg (25.7-33.7); MCHC 31.9 g/dl (32.0-36.0); MEAN CELL VOLUME 101.9 fl (80-96); MEAN PLT VOLUME 8.7 fl (7.5-11.1); MONO % 11.8 % (3.8-10.2); NEUT % 54.5 % (42.8-82.8); PLATELET COUNT 219 10^3/uL (134-434); RBC 2.72 M/mm3 (3.60-5.2); RDW 17.8 % (11.6-15.6); WHITE BLOOD COUNT 4.3 K/mm3 (4.0-10.0)
[2023-04-17 12:15] LABS: CALCIUM 8.5 mg/dL (8.5-10.1)
[2023-04-17 12:16] LABS: BLOOD UREA NITROGEN 33.1 mg/dL (7-18)
[2023-04-17 12:19] LABS: CREATININE 6.4 mg/dL (0.55-1.3)
[2023-04-17 12:32] LABS: POTASSIUM 4.7 mmol/L (3.5-5.1)
[2023-04-17 14:07] VITALS: BP 162/55; PULSE 84; TEMP 97.8
== END 2023-04-17 15:53 | disposition home or self-care (01) | DRG 617 ==
LOC: JER 09:55 → JERBED 16:09 → J6S 22:31
PROVIDERS: ADMIT Internal Medicine; ATTEND Internal Medicine
PROC: 5A1D70Z Performance of Urinary Filtration, Intermittent, Less than 6 Hours Per Day (ICD-10-PCS; 2023-04-05)
PROC: 5A1D70Z Performance of Urinary Filtration, Intermittent, Less than 6 Hours Per Day (ICD-10-PCS; 2023-04-06)
PROC: 5A1D70Z Performance of Urinary Filtration, Intermittent, Less than 6 Hours Per Day (ICD-10-PCS; 2023-04-08)
PROC: B40FYZZ Plain Radiography of Right Lower Extremity Arteries using Other Contrast (ICD-10-PCS; 2023-04-10)
PROC: B40GYZZ Plain Radiography of Left Lower Extremity Arteries using Other Contrast (ICD-10-PCS; principal; 2023-04-10 15:00)
PROC: 5A1D70Z Performance of Urinary Filtration, Intermittent, Less than 6 Hours Per Day (ICD-10-PCS; 2023-04-11)
PROC: 0Y6Q0Z2 Detachment at Left 1st Toe, Mid, Open Approach (ICD-10-PCS; 2023-04-13)
PROC: 0QBR0ZX Excision of Left Toe Phalanx, Open Approach, Diagnostic (ICD-10-PCS; 2023-04-13)
PROC: 5A1D70Z Performance of Urinary Filtration, Intermittent, Less than 6 Hours Per Day (ICD-10-PCS; 2023-04-13)
PROC: 5A1D70Z Performance of Urinary Filtration, Intermittent, Less than 6 Hours Per Day (ICD-10-PCS; 2023-04-15)
DX: E11.69 Type 2 diabetes mellitus with other specified complication (principal); E87.1 Hypo-osmolality and hyponatremia; I13.2 Hypertensive heart and chronic kidney disease with heart failure and with stage 5 chronic kidney disease, or end stage renal disease; M86.172 Other acute osteomyelitis, left ankle and foot; R78.81 Bacteremia; L97.528 Non-pressure chronic ulcer of other part of left foot with other specified severity; L97.518 Non-pressure chronic ulcer of other part of right foot with other specified severity; B95.62 Methicillin resistant Staphylococcus aureus infection as the cause of diseases classified elsewhere; I25.10 Atherosclerotic heart disease of native coronary artery without angina pectoris; E78.5 Hyperlipidemia, unspecified; E11.319 Type 2 diabetes mellitus with unspecified diabetic retinopathy without macular edema; H35.30 Unspecified macular degeneration; E11.22 Type 2 diabetes mellitus with diabetic chronic kidney disease; E11.51 Type 2 diabetes mellitus with diabetic peripheral angiopathy without gangrene; E11.40 Type 2 diabetes mellitus with diabetic neuropathy, unspecified; N18.6 End stage renal disease; I50.9 Heart failure, unspecified; E87.6 Hypokalemia; E66.9 Obesity, unspecified; Z68.31 Body mass index [BMI] 31.0-31.9, adult; R53.1 Weakness; L03.032 Cellulitis of left toe; E11.621 Type 2 diabetes mellitus with foot ulcer; D50.9 Iron deficiency anemia, unspecified; R11.2 Nausea with vomiting, unspecified; Z99.2 Dependence on renal dialysis; Z95.1 Presence of aortocoronary bypass graft; Z86.718 Personal history of other venous thrombosis and embolism
CPT/HCPCS: 0241U-QW; 36415; 71045-TC-FY; 73630-TC-LT; 73630-TC-RT-FY; 73718-TC-LT; 73718-TC-RT; 74176-TC; 76000-TC-FY; 80048; 80053; 82010; 82728; 82803; 82962; 83036; 83540; 83550; 83605; 83690; 83735; 84100; 84484; 85025; 85610; 86140; 86704; 86803; 86850; 86900; 86901; 87040; 87070; 87075; 87186; 87205; 87340; 87517; 88305-TC; 88311-TC; 93005; 93010; 93306-TC; 93925-TC; 94760; 99285-25; G0480; J1644; J1756; Q5106

== ENCOUNTER 2023-08-03 12:49 | Inpatient (IN) | payer OTHER ==
[2023-08-03 14:30] LABS: INR 0.93 (0.83-1.09); PROTHROMBIN TIME (PATIENT) 10.8 SEC (9.7-13.0)
[2023-08-03 14:33] LABS: ACTIVATED PTT 22.6 SECONDS (25.2-36.5)
[2023-08-03 14:36] LABS: HEMATOCRIT 33.5 % (32.4-45.2); HEMOGLOBIN 11.3 GM/dL (10.7-15.3); MCH 33.1 pg (25.7-33.7); MCHC 33.7 g/dl (32.0-36.0); MEAN CELL VOLUME 98.4 fl (80-96); MEAN PLT VOLUME 9.9 fl (7.5-11.1); PLATELET COUNT 233 10^3/uL (134-434); RDW 16.2 % (11.6-15.6)
[2023-08-03 14:38] LABS: WHITE BLOOD COUNT 4.8 K/mm3 (4.0-10.0)
[2023-08-03 14:46] LABS: POTASSIUM 4.2 mmol/L (3.5-5.1)
[2023-08-03 14:48] LABS: ALBUMIN 3.3 g/dl (3.4-5.0); BLOOD UREA NITROGEN 18.1 mg/dL (7-18); CALCIUM 8.9 mg/dL (8.5-10.1)
[2023-08-03 14:53] LABS: BILIRUBIN,TOTAL 0.5 mg/dL (0.2-1); TOT PROT 6.8 g/dl (6.4-8.2)
[2023-08-03 15:03] LABS: ANISOCYTOSIS 1+; MACROCYTOSIS 0
[2023-08-03] MEDS ORDERED: PANTOPRAZOLE 40 MG TABLET PO ONE (16:44)
[2023-08-03] MEDS: PANTOPRAZOLE 40 MG TABLET PO SCH (17:35)
[2023-08-03] MEDS: INSULIN ASPART SLIDING SCALE (NOVOLOG) 1 VIAL SQ SCH (17:35)
[2023-08-03] MEDS ORDERED: INSULIN (NOVOLOG) ASPART 100 UNITS/ML 10ML VIAL ONE ×3 (17:39→21:25)
[2023-08-03] MEDS: CARVEDILOL 25 MG TABLET (FP) PO SCH (21:31)
[2023-08-03] MEDS: APIXABAN 2.5 MG TABLET PO SCH (21:32)
[2023-08-04] MEDS: GENTAMICIN SO4 80 MG/2 ML VIAL IVPB ONE ×2 (07:55→09:34)
[2023-08-04] MEDS: LIDOCAINE HCL 1%, 10 MG/ML (20ML VIAL) INF ONE ×2 (07:56→09:18)
[2023-08-04] MEDS ORDERED: ONDANSETRON 4 MG/2 ML VIAL IVPUSH PRN ×2 (09:10→10:25)
[2023-08-04] MEDS ORDERED: oxyCODONE HCL 5 MG TABLET PO PRN ×2 (09:10→10:25)
[2023-08-04] MEDS ORDERED: PROPOFOL 20 ML ONE (09:13)
[2023-08-04] MEDS ORDERED: MIDAZOLAM HCL 2 MG/2 ML SINGLE DOSE VIAL ONE (09:13)
[2023-08-04] MEDS ORDERED: LACTATED RINGERS SOLUTION 1,000 ML IV SCH ×2 (09:15→10:25)
[2023-08-04] MEDS: ceFAZolin SODIUM 1 GM VIAL IVPB ONE (09:20)
[2023-08-04] MEDS ORDERED: ceFAZolin SODIUM 1 GM VIAL ONE (09:20)
[2023-08-04] MEDS ORDERED: amLODIPine BESYLATE 10 MG TABLET (FP) PO SCH (10:00)
[2023-08-04] MEDS ORDERED: ASPIRIN COATED 81 MG TABLET.EC PO SCH (10:00)
[2023-08-04] MEDS ORDERED: hydrALAZINE HCL 25 MG TABLET (FP) PO SCH (10:00)
[2023-08-04] MEDS: INSULIN ASPART SLIDING SCALE (NOVOLOG) 1 VIAL SQ SCH (11:16)
[2023-08-04] MEDS ORDERED: INSULIN (NOVOLOG) ASPART 100 UNITS/ML 10ML VIAL ONE (11:20)
[2023-08-04 11:31] VITALS: RESP 18
[2023-08-04 12:53] VITALS: BMI 30.7
[2023-08-04] MEDS ORDERED: SODIUM CHLORIDE 250 ML IV PRN (13:51)
[2023-08-04] MEDS: CARVEDILOL 25 MG TABLET (FP) PO SCH (21:43)
[2023-08-05] MEDS ORDERED: INSULIN (NOVOLOG) ASPART 100 UNITS/ML 10ML VIAL ONE ×2 (06:20→13:23)
[2023-08-05 08:51] LABS: POTASSIUM 4.5 mmol/L (3.5-5.1)
[2023-08-05 08:55] LABS: CALCIUM 9.5 mg/dL (8.5-10.1)
[2023-08-05 08:58] LABS: CREATININE 6.5 mg/dL (0.55-1.3)
[2023-08-05 09:01] LABS: BLOOD UREA NITROGEN 59.1 mg/dL (7-18)
[2023-08-05 09:12] LABS: BASO % 0.9 % (0-2.0); EOS % 2.9 % (0-4.5); HEMATOCRIT 30.9 % (32.4-45.2); HEMOGLOBIN 10.6 GM/dL (10.7-15.3); LYMPH % 29.2 % (8-40); MCH 33.8 pg (25.7-33.7); MCHC 34.1 g/dl (32.0-36.0); MEAN CELL VOLUME 99.1 fl (80-96); MEAN PLT VOLUME 9.5 fl (7.5-11.1); MONO % 7.3 % (3.8-10.2); NEUT % 59.7 % (42.8-82.8); PLATELET COUNT 193 10^3/uL (134-434); RBC 3.12 M/mm3 (3.60-5.2); WHITE BLOOD COUNT 4.3 K/mm3 (4.0-10.0)
[2023-08-05] MEDS: hydrALAZINE HCL 25 MG TABLET (FP) PO SCH (09:54)
[2023-08-05] MEDS: PANTOPRAZOLE 40 MG TABLET PO SCH (09:55)
[2023-08-05] MEDS: amLODIPine BESYLATE 10 MG TABLET (FP) PO SCH (09:55)
[2023-08-05] MEDS: APIXABAN 2.5 MG TABLET PO SCH (09:56)
[2023-08-05] MEDS: ASPIRIN COATED 81 MG TABLET.EC PO SCH (09:56)
[2023-08-06] MEDS ORDERED: INSULIN (NOVOLOG) ASPART 100 UNITS/ML 10ML VIAL ONE ×2 (11:29→16:57)
[2023-08-06 22:14] VITALS: TEMP 97.5
[2023-08-07 07:10] VITALS: BP 128/50; PULSE 58
[2023-08-07] MEDS ORDERED: SODIUM CHLORIDE 250 ML IV PRN (10:42)
[2023-08-07] MEDS: AMOX TR/POT CLAV 500MG/125MG TABLETS (FP) PO SCH (12:52)
[2023-08-08] MEDS ORDERED: AMOX TR/POT CLAV 500MG/125MG TABLETS (FP) PO SCH (10:00)
[2023-08-08] MEDS ORDERED: EPOETIN ALFA-EPBX 4,000 UNIT/ML VIAL IVPUSH ONE (10:42)
== END 2023-08-07 14:44 | disposition home health service (06) | DRG 617 ==
LOC: JER 12:49 → JERBED 16:19 → J7W 18:52
PROVIDERS: ADMIT Internal Medicine; ATTEND Internal Medicine
PROC: 0HRMX73 Replacement of Right Foot Skin with Autologous Tissue Substitute, Full Thickness, External Approach (ICD-10-PCS; 2023-08-04)
PROC: 0Y6P0Z3 Detachment at Right 1st Toe, Low, Open Approach (ICD-10-PCS; principal; 2023-08-04 07:30)
PROC: 5A1D70Z Performance of Urinary Filtration, Intermittent, Less than 6 Hours Per Day (ICD-10-PCS; 2023-08-05)
DX: E11.622 Type 2 diabetes mellitus with other skin ulcer (principal); I13.2 Hypertensive heart and chronic kidney disease with heart failure and with stage 5 chronic kidney disease, or end stage renal disease; M86.671 Other chronic osteomyelitis, right ankle and foot; I50.32 Chronic diastolic (congestive) heart failure; T86.12 Kidney transplant failure; L97.518 Non-pressure chronic ulcer of other part of right foot with other specified severity; E11.69 Type 2 diabetes mellitus with other specified complication; E11.22 Type 2 diabetes mellitus with diabetic chronic kidney disease; N18.6 End stage renal disease; Z99.2 Dependence on renal dialysis; I25.10 Atherosclerotic heart disease of native coronary artery without angina pectoris; I48.91 Unspecified atrial fibrillation; E78.00 Pure hypercholesterolemia, unspecified; H35.30 Unspecified macular degeneration; R26.81 Unsteadiness on feet; M21.6X1 Other acquired deformities of right foot; E11.319 Type 2 diabetes mellitus with unspecified diabetic retinopathy without macular edema; E11.65 Type 2 diabetes mellitus with hyperglycemia; E66.9 Obesity, unspecified; Z68.31 Body mass index [BMI] 31.0-31.9, adult; Z95.1 Presence of aortocoronary bypass graft; Z89.411 Acquired absence of right great toe
CPT/HCPCS: 36415; 71045-TC-FY; 73610-TC-RT-FY; 73630-TC-RT-FY; 80048; 80053; 82962; 85025; 85610; 85730; 87340; 88305-TC; 88311-TC; 93005; 93010; 94760; 99285-25

== ENCOUNTER 2024-12-09 15:47 | Emergency (ER) | payer OTHER ==
[2024-12-09] MEDS ORDERED: TRANEXAMIC ACID 1000 MG/10 ML VIAL ONE (17:24)
[2024-12-09 17:27] VITALS: TEMP 97.6; BMI 29.8
[2024-12-09 17:46] LABS: ABSOLUTE IMMATURE GRANULOCYTES 0.01 x10^3/uL (0.0-0.031); BASOPHILS # 0.04 x10^3/uL (0.01-0.08); EOSINOPHIL % 2.1 % (0.7-5.8); EOSINOPHILS # 0.09 x10^3/uL (0.04-0.36); MCHC 32.1 g/dl (32.2-35.5); MEAN CELL VOLUME 105.5 fl (79.4-94.8); MEAN PLT VOLUME 11.1 fl (9.4-12.3); MONOCYTE # 0.28 x10^3/uL (0.24-0.86); MONOCYTE % 6.7 % (4.7-12.5); RDW 13.7 % (12.4-16.4)
[2024-12-09 18:03] LABS: INR 1.04 (0.83-1.09); PROTHROMBIN TIME (PATIENT) 11.4 SEC (9.7-13.0)
[2024-12-09] MEDS: TRANEXAMIC ACID 1000 MG/10 ML VIAL NS ONE (18:14)
[2024-12-09 18:17] LABS: CO2 23.0 mmol/L (21-32); GLUCOSE,RANDOM 215.0 mg/dL (74-106)
[2024-12-09] MEDS ORDERED: ONDANSETRON 4 MG/2 ML VIAL ONE (18:20)
[2024-12-09 18:21] LABS: CREATININE 6.6 mg/dL (0.55-1.3)
[2024-12-09] MEDS: ONDANSETRON 4 MG/2 ML VIAL IVPUSH ONE (18:38)
[2024-12-09 19:13] LABS: MCHC 32.3 g/dl (32.2-35.5); MEAN CELL VOLUME 105.6 fl (79.4-94.8); MEAN PLT VOLUME 11.4 fl (9.4-12.3); RDW 13.5 % (12.4-16.4)
[2024-12-09 20:25] VITALS: BP 124/62; PULSE 70; RESP 18
[2024-12-09 20:35] LABS: HIV INTERPRETATION NEGATIVE (NEGATIVE)
[2024-12-09 20:36] LABS: HCV DIAGNOSTIC IN-HOUSE W/RFLX NON-REACTIVE (NONREACTIVE)
== END 2024-12-09 20:00 | disposition home or self-care (01) ==
LOC: JER 15:47
PROC: 3E033GC Introduction of Other Therapeutic Substance into Peripheral Vein, Percutaneous Approach (ICD-10-PCS; principal; 2024-12-09)
DX: T82.838A Hemorrhage due to vascular prosthetic devices, implants and grafts, initial encounter (principal); Y83.1 Surgical operation with implant of artificial internal device as the cause of abnormal reaction of the patient, or of later complication, without mention of misadventure at the time of the procedure
CPT/HCPCS: 36415; 80048; 85025; 85027; 85610; 86803; 86850; 86900; 86901; 87389; 99284-25

== ENCOUNTER 2025-03-10 05:37 | Day surgery (SDC) | payer OTHER ==
[2025-03-10] MEDS ORDERED: PROPOFOL 60 ML ONE (13:46)
[2025-03-10] MEDS ORDERED: POVIDONE-IODINE OINTMENT 10% - 28.4 GM TUBE ONE (14:35)
[2025-03-10] MEDS ORDERED: LIDOCAINE HCL 1%, 10 MG/ML (20ML VIAL) ONE (14:35)
[2025-03-10] MEDS ORDERED: PAPAVERINE HCL 30 MG/1 ML 10 ML VIAL NR ONE (14:36)
[2025-03-10] MEDS ORDERED: HEPARIN NA (PORCINE) 5,000 UNITS/ML 1ML VIAL ONE (14:36)
[2025-03-10 15:05] LABS: MCHC 31.5 g/dl (32.2-35.5); MEAN CELL VOLUME 98.9 fl (79.4-94.8); MEAN PLT VOLUME 11.5 fl (9.4-12.3); RDW 14.6 % (12.4-16.4)
[2025-03-10 15:22] LABS: GLUCOSE,RANDOM 113.0 mg/dL (74-106); TOT PROT 6.2 g/dl (6.4-8.2)
[2025-03-10 15:23] LABS: CO2 23.0 mmol/L (21-32)
[2025-03-10 15:25] LABS: ALK PHOS 66.0 U/L (40-150)
[2025-03-10 15:27] LABS: SGOT/AST 16.0 U/L (5-34); SGPT/ALT 9.0 U/L (0-55)
[2025-03-10 15:28] LABS: CREATININE 6.72 mg/dL (0.55-1.3)
[2025-03-10] MEDS ORDERED: DEXAMETHASONE SOD PHOSPHATE 10 MG/1 ML VIAL ONE (15:48)
[2025-03-10] MEDS ORDERED: MIDAZOLAM HCL 2 MG/2 ML SINGLE DOSE VIAL ONE (15:48)
[2025-03-10] MEDS ORDERED: ROPIVACAINE HCL 0.5% 30ML VIAL ONE (15:48)
[2025-03-10] MEDS ORDERED: ONDANSETRON 4 MG/2 ML VIAL ONE (16:24)
[2025-03-10] MEDS ORDERED: DEXAMETHASONE SOD PHOSPHATE 4 MG/1 ML VIAL ONE (16:24)
[2025-03-10] MEDS ORDERED: MAGNESIUM SULF 50% (8.12 MEQ/2 ML-1 GM VIAL) ONE (16:51)
[2025-03-10] MEDS ORDERED: PHENYLEPHRINE HCL 10 MG/1 ML SINGLE DOSE VIAL ONE (17:00)
[2025-03-10] MEDS: LIDOCAINE HCL 1%, 10 MG/ML (20ML VIAL) INF ONE (17:19)
[2025-03-10] MEDS: POVIDONE-IODINE OINTMENT 10% - 28.4 GM TUBE TP ONE (17:25)
[2025-03-10] MEDS: SODIUM CHLORIDE 1,000 ML IV SCH (18:56)
[2025-03-10] MEDS: INSULIN ASPART SLIDING SCALE (NOVOLOG) 1 VIAL SQ SCH (19:15)
[2025-03-10] MEDS: ACETAMINOPHEN 325 MG TABLET (FP) PO SCH (20:00)
[2025-03-11] MEDS: CARVEDILOL 25 MG TABLET (FP) PO SCH (01:30)
[2025-03-11] MEDS: INSULIN GLARGINE (LANTUS) 100 UNITS/ML UNITS SQ SCH (01:31)
[2025-03-11 07:18] LABS: MCHC 31.8 g/dl (32.2-35.5); MEAN CELL VOLUME 97.5 fl (79.4-94.8); MEAN PLT VOLUME 11.6 fl (9.4-12.3); RDW 14.4 % (12.4-16.4)
[2025-03-11 07:45] LABS: GLUCOSE,RANDOM 151.0 mg/dL (74-106)
[2025-03-11 07:47] LABS: CO2 17.0 mmol/L (21-32)
[2025-03-11 07:51] LABS: CREATININE 7.49 mg/dL (0.55-1.3)
[2025-03-11] MEDS: SEVELAMER CARBONATE 800 MG TAB (FP) PO SCH (09:29)
[2025-03-11] MEDS ORDERED: SODIUM CHLORIDE 250 ML IV PRN (09:34)
[2025-03-11 09:35] VITALS: BMI 29.2
[2025-03-11] MEDS ORDERED: PATIENT'S OWN MEDICATION (NON-FORMULARY) (Mv-Mn/Iron/Folic Acid/Herb 190 [Vitamin D3 Compl PO SCH (10:00)
[2025-03-11] MEDS ORDERED: PATIENT'S OWN MEDICATION (NON-FORMULARY) (Insulin Lispro [Humalog] 100 UNIT/ML Vial) SQ SCH (10:00)
[2025-03-11] MEDS: ASCORBIC ACID 500 MG TABLET (FP) PO SCH (10:34)
[2025-03-11] MEDS: amLODIPine BESYLATE 10 MG TABLET (FP) PO SCH (10:34)
[2025-03-11] MEDS: APIXABAN 5 MG TABLET PO SCH (10:34)
[2025-03-11] MEDS: PANTOPRAZOLE 40 MG TABLET PO SCH (10:34)
[2025-03-11] MEDS: CHOLECALCIFEROL (VIT D3) 1,000 UNIT (25 MCG) TABLET PO SCH (10:34)
[2025-03-11] MEDS: ASPIRIN COATED 81 MG TABLET.EC PO SCH (10:34)
[2025-03-11 11:12] VITALS: RESP 18
[2025-03-11 12:12] LABS: HCV DIAGNOSTIC IN-HOUSE W/RFLX NON-REACTIVE (NONREACTIVE)
[2025-03-11 12:33] LABS: HEPATITIS B SURF AG NON-MATERN NON-REACTIVE (NONREACTIVE)
[2025-03-11 16:24] VITALS: TEMP 98.9
[2025-03-11 17:04] VITALS: PULSE 60
[2025-03-11 17:50] VITALS: BP 112/65
== END 2025-03-11 18:57 | disposition home health service (06) ==
LOC: JASU-SURG 05:37 → J8W 03-11 00:20 → JASUSAT 03-11 18:57
PROVIDERS: ATTEND Surgery
PROC: B548ZZA Ultrasonography of Superior Vena Cava, Guidance (ICD-10-PCS; 2025-03-10)
PROC: 03180ZD Bypass Left Brachial Artery to Upper Arm Vein, Open Approach (ICD-10-PCS; principal; 2025-03-10 16:00)
PROC: 02HV33Z Insertion of Infusion Device into Superior Vena Cava, Percutaneous Approach (ICD-10-PCS; 2025-03-10 16:00)
DX: T82.898A Other specified complication of vascular prosthetic devices, implants and grafts, initial encounter (principal); I12.0 Hypertensive chronic kidney disease with stage 5 chronic kidney disease or end stage renal disease; E11.22 Type 2 diabetes mellitus with diabetic chronic kidney disease; N18.6 End stage renal disease; Z96.41 Presence of insulin pump (external) (internal); Z79.4 Long term (current) use of insulin; Z99.2 Dependence on renal dialysis
CPT/HCPCS: 36415; 71045-TC-FY; 76000-TC-FY; 80048; 80053; 82962; 85027; 86704; 86705; 86803; 87340; 94760; 97116-GP; 97161-GP; C1750; J1100; J1644